=== PATIENT | male | born 1960 | race Caucasian/White ===

== ENCOUNTER 2021-05-12 09:55 | Inpatient (IN) ==
[2021-05-12] MEDS ORDERED: SODIUM CHLORIDE 0.9% 1000ML 2,000 ML IV ONE (10:13)
--- NOTE | 2021-05-12 10:19 | Emergency Department Note ---
Impression & Plan Pneumonia due to 2019 novel coronavirus, Respiratory failure, Acute hypotension ED Provider Note NAME: ANTONINA MIXON AGE: 60 SEX: M : 1960 ARRIVES VIA: Walk-In INFORMANT: Patient ED PROVIDER(S): José Hauser DO CHIEF COMPLAINT: Weak, cough, fevers HPI: Patient is a 60-year-old male who presents to the ER for weakness. His symptoms started about 10 days ago. He admits to cough and congestion. He has been having fevers off and on. He admits to a headache and feeling extremely weak. He cannot get up and move around. Denies any chest pain or belly pain. No nausea vomiting or diarrhea. No loss of taste or smell. He has not been vaccinated for COVID. He came in today as he feels significantly worse. He does feel very lightheaded. ROS: See above HPI for pertinent positives & negatives. A total of 10 systems reviewed and were otherwise negative. PAST MEDICAL HISTORY:See Below PAST SURGICAL HISTORY:See Below FAMILY HISTORY:See Below SOCIAL HISTORY:See Below HOME MEDICATIONS:See Below ALLERGIES:See Below VITALS:See Below PHYSICAL EXAMINATION: GENERAL: Sitting up in bed, alert, slightly ill-appearing, disheveled, persistent cough EYE EXAM: normal conjunctiva. PERRL and EOM's grossly intact. OROPHARYNX: no exudate, no erythema, lips, buccal mucosa, and tongue normal and mucous membranes are moist NECK: supple, no nuchal rigidity, no adenopathy, non-tender LUNGS: Clear to auscultation. Normal chest wall mechanics HEART: no murmurs, S1 normal and S2 normal ABDOMEN: abdomen soft, non-tender, normo-active bowel sounds, no masses, no rebound or guarding. UPPER EXTREMITIES: upper extremities are grossly normal. LOWER EXTREMITIES: No pitting edema. Calves equal bilateral NEURO EXAM: Normal sensorium, cranial nerves II-XII grossly intact, normal speech, no gross weakness of arms, no gross weakness of legs. MEDICAL DECISION MAKING: Patient is a 60-year-old unvaccinated male who presents to the ER for upper respiratory symptoms that started 10 days ago. IV was established blood was obtained. Initially hypotensive with systolics in the 80s. He was hypoxic at 88% on room air just sitting. He was placed on 2 L nasal cannula. Labs show no significant leukocytosis or anemia. BMP with mild hyponatremia at 133. LFTs were unremarkable. Bilirubin was normal. Calcium was slightly low at 8.3. Lipase was unremarkable. Patient is COVID-positive. He is given 2 L of normal saline. Systolics trended up to the low 120s. Chest x-ray with subtle patchy infiltrates or cephalization. CT angio of the chest was performed with hypoxia, hypotension and a positive D-dimer at 2200. CT angios showed no PEs but bilateral infiltrates. He was given Decadron and IV fluids. He remained on bridget al cannula. He was discussed with Haylie pathak admitted to the hospitalist for COVID-pneumonia with hypoxic respiratory failure on 2 L nasal cannula. Patient was updated at bedside and was agreeable with admission for further evaluation and treatment of his COVID-pneumonia Triage Nursing notes reviewed. Limited review of prior medical records performed Vital Signs: reviewed and remarkable for hypotensive and hypoxic Differential diagnosis: Differential diagnoses includes but is not limited to pneumonia, bronchitis, COPD/Asthma exacerbation, pneumothorax, pulmonary embolism, congestive heart failure, acute coronary syndrome ER treatment provided: See below Diagnostics interpreted by me: ECG: Sinus rhythm rate of 91 Normal axis No PVCs Incomplete right bundle Poor baseline QTC 437 Cardiac Monitoring: An order was placed for continuous cardiac monitoring. The monitor shows a rate of 95 with sinus rhythm. Laboratory studies: As stated above and show below. Imaging studies: Chest x-ray with cephalization and bilateral patchy infiltrates CT angio of the chest shows no PEs but bilateral infiltrates Consultation(s): Discussed with Haylie pathak for further evaluation Procedures: none Critical Care: I have personally spent 32 minutes of critical care time in the direct management of this patient. This includes bedside care, interpretation of diagnostic studies, and testing, discussion with consultants, patient, and family members, and other required patient management activities. This 32 minutes is in excess of all separately billable procedures. Past Med/Surg History Social History Smoking Status: Never smoker Feels Safe at Home: Yes Allergies Allergies Allergy/AdvReac Type Severity Reaction Status Date / Time No Known Allergies Allergy Unverified 05/12/21 10:29 Home Meds Home Medications Medication Instructions Recorded Confirmed No Known Home Medications 05/12/21 05/12/21 Results & Data (ED) Vital Signs Vital Signs - 24 hr 05/12/21 09:59 05/12/21 10:14 05/12/21 10:15 Temperature 37.4 C Temperature Source Temporal Artery Scan Pulse Rate 98 H 91 H Pulse Rate from SpO2 Sensor 91 H Respiratory Rate 24 38 H Blood Pressure 86/48 L 113/73 Blood Pressure Mean 60 86 Pulse Oximetry 90 90 89 L Oxygen Delivery Method Room Air Nasal Cannula Room Air Oxygen Flow Rate 2 Sepsis Recent Fever Within 48 Hours No Sepsis New/Unexplained Change in Mental Status N/A Sepsis Action Taken by Nursing Physician Notified Oxygen Flow Rate - Titration 2 Pulse Oximetry Post Tiitration 93 05/12/21 10:30 05/12/21 11:01 05/12/21 11:30 Temperature Temperature Source Pulse Rate 88 87 83 Pulse Rate from SpO2 Sensor 88 86 84 Respiratory Rate 26 H 27 H 36 H Blood Pressure 109/71 127/90 119/69 Blood Pressure Mean 83 102 85 Pulse Oximetry 94 93 88 L Oxygen Delivery Method Nasal Cannula Nasal Cannula Room Air Oxygen Flow Rate 2 2 Sepsis Recent Fever Within 48 Hours Sepsis New/Unexplained Change in Mental Status Sepsis Action Taken by Nursing Oxygen Flow Rate - Titration Pulse Oximetry Post Tiitration Laboratory Data Result diagrams: 05/12/21 10:25 05/12/21 11:54 Lab Results 05/12/21 05/12/21 05/12/21 Range/Units 10:25 10:25 10:25 WBC 8.36 (4.8-10.8) K/uL RBC 4.89 (4.7-6.1) M/uL Hgb 15.9 (14.0-18.0) g/dL Hct 45.1 (42-52) % MCV 92.2 (80-100) fL MCH 32.5 (25-34) pg MCHC 35.3 (32-36) g/dL RDW Std Deviation 46.6 H (36.4-46.3) fL RDW Coeff of Matilda 13.7 (11.5-14.5) % Plt Count 195 (130-400) K/uL MPV 10.6 H (7.4-10.4) fL Immature Gran % (Auto) 0.1 % Neut % (Auto) 70.7 % Lymph % (Auto) 21.7 % [place] % (Auto) 7.3 % Eos % (Auto) 0.1 % Baso % (Auto) 0.1 % Neut # (Auto) 5.91 (1.4-6.5) K/uL Lymph # (Auto) 1.81 (1.2-3.4) K/uL [place] # (Auto) 0.61 H (0.11-0.59) K/uL Eos # (Auto) 0.01 (0-0.5) K/uL Baso # (Auto) 0.01 (0-0.2) K/uL Immature Gran # (Auto) 0.01 (0.00-0.02) K/uL D-Dimer 2270 H* (0-500) ug/L FEU Sodium 133 L (136-145) mmol/L Potassium (3.5-5.1) mmol/L Chloride 101 (98-107) mmol/L Carbon Dioxide 24 (21-32) mmol/L Anion Gap 8 (3-11) BUN 21 (6-23) mg/dl Creatinine 1.11 (0.6-1.4) mg/dl Est Cr Clr Drug Dosing 86.2 ml/min Est GFR ( Amer) 82.0 ml/min Est GFR (Non-Af Amer) 70.8 ml/min BUN/Creatinine Ratio 18.9 (10-20) Glucose 120 H (70-99(Fasting)) mg/dl Calcium 8.3 L (8.5-10.1) mg/dl Total Bilirubin 0.6 (0.2-1.0) mg/dl AST (13-39) U/L ALT 19 (7-52) U/L Alkaline Phosphatase (34-104) U/L Troponin I 0.03 (0-0.04) ng/ml B-Natriuretic Peptide (0-100) pg/ml Total Protein 7.1 (6.0-8.3) gm/dl Albumin 3.5 (3.4-5.0) gm/dl Globulin 3.6 (2.5-4.0) gm/dl Albumin/Globulin Ratio 1.0 (0.9-2) Lipase 91 H (11-82) U/L SARS-CoV-2 (PCR) (Negative) Influenza Type A (PCR) (Neg) Influenza Type B (PCR) (Neg) RSV (RT-PCR) (Neg) 05/12/21 05/12/21 05/12/21 Range/Units 10:25 11:19 11:54 WBC (4.8-10.8) K/uL RBC (4.7-6.1) M/uL Hgb (14.0-18.0) g/dL Hct (42-52) % MCV (80-100) fL MCH (25-34) pg MCHC (32-36) g/dL RDW Std Deviation (36.4-46.3) fL RDW Coeff of Matilda (11.5-14.5) % Plt Count (130-400) K/uL MPV (7.4-10.4) fL Immature Gran % (Auto) % Neut % (Auto) % Lymph % (Auto) % [place] % (Auto) % Eos % (Auto) % Baso % (Auto) % Neut # (Auto) (1.4-6.5) K/uL Lymph # (Auto) (1.2-3.4) K/uL [place] # (Auto) (0.11-0.59) K/uL Eos # (Auto) (0-0.5) K/uL Baso # (Auto) (0-0.2) K/uL Immature Gran # (Auto) (0.00-0.02) K/uL D-Dimer (0-500) ug/L FEU Sodium (136-145) mmol/L Potassium 3.8 (3.5-5.1) mmol/L Chloride (98-107) mmol/L Carbon Dioxide (21-32) mmol/L Anion Gap (3-11) BUN (6-23) mg/dl Creatinine (0.6-1.4) mg/dl Est Cr Clr Drug Dosing ml/min Est GFR ( Amer) ml/min Est GFR (Non-Af Amer) ml/min BUN/Creatinine Ratio (10-20) Glucose (70-99(Fasting)) mg/dl Calcium (8.5-10.1) mg/dl Total Bilirubin (0.2-1.0) mg/dl AST 39 (13-39) U/L ALT (7-52) U/L Alkaline Phosphatase 42 (34-104) U/L Troponin I (0-0.04) ng/ml B-Natriuretic Peptide 64 (0-100) pg/ml Total Protein (6.0-8.3) gm/dl Albumin (3.4-5.0) gm/dl Globulin (2.5-4.0) gm/dl Albumin/Globulin Ratio (0.9-2) Lipase (11-82) U/L SARS-CoV-2 (PCR) POSITIVE A* (Negative) Influenza Type A (PCR) Negative (Neg) Influenza Type B (PCR) Negative (Neg) RSV (RT-PCR) Negative (Neg) Administered Medications Discontinued Medications Dexamethasone (Dexamethasone Sod Inj 4 Mg/Ml Vial) Confirm Administered Dose 8 mg .ROUTE .STK-MED ONE Stop: 05/12/21 12:20 Last Admin: 05/12/21 12:22 Dose: 6 mg Documented by: [id number] Sodium Chloride (Nss 1000ml) 2,000 mls @ 999 mls/hr IV .Q2H1M ONE Stop: 05/12/21 12:13 Last Infusion: 05/12/21 12:29 Dose: 0 mls/hr Documented by: [id number] Admin: 05/12/21 10:28 Dose: 999 mls/hr Documented by: [id number] Dexamethasone 6 mg/ Syringe 1.5 mls @ 1 mls/min IV ONE ONE Stop: 05/12/21 12:03 Last Admin: 05/12/21 12:22 Dose: Not Given Documented by: [id number] Ioversol (Optiray 320 125ml) 121 ml IV ONCE ONE Stop: 05/12/21 12:05 Last Admin: 05/12/21 12:04 Dose: 121 ml Documented by: [id number] Imaging Data Radiologist's Impression: Chest X-Ray 05/12/21 10:13 XR chest 1V portable CLINICAL HISTORY: Atypical chest pain TECHNIQUE: Single frontal radiograph of the chest was obtained. Comparison: None available at the time of this dictation. FINDINGS: Intact sternotomy wires are noted. Clips are projecting over the left upper quadrant. The cardiomediastinal silhouette is normal. There is prominence and cephalization of the vasculature with Cirilo B lines seen. No evidence of pleural effusion or pneumothorax. IMPRESSION: Moderate pulmonary edema. ACT 112: Negative or not required by law. Electronically signed by: David Khan M.D. 05/12/2021 10:57 AM Chest CTA 05/12/21 10:59 CT angio chest PE protocol CLINICAL HISTORY: Shortness of breath and cough. Positive d-dimer. Evaluate for pulmonary embolus COMPARISON STUDY: Portable chest 05/12/2021 CT DOSE: 590.71 mGycm TECHNIQUE: CT Angio of the chest was performed.followed by image post processing with coronal, and sagittal MIP reformats. Contrast Volume: Optiray 320, 121 ml FINDINGS: Vasculature: There is homogeneous perfusion of the pulmonary vasculature bilaterally. No intraluminal filling defects or evidence for pulmonary embolus is seen. Airway: The airway is clear. No endobronchial lesion is identified. Lungs: Extensive groundglass opacities are present throughout both lungs characteristic of a viral type pneumonitis and Covid 19 pneumonia. The lungs are otherwise clear of confluent alveolar opacities, air bronchograms or pulmonary nodules. There is no evidence for pulmonary edema as suspected radiographically. Pleura: There is no evidence for pleural effusion. There is no evidence for pneumothorax. Mediastinum: There is no evidence for pathologic adenopathy. The patient is status post previous cardiothoracic surgery. The heart size is within normal limits. Coronary artery calcification is present. The thoracic aorta is within normal limits. There is no evidence for pericardial effusion. Upper abdomen:The adrenal glands are normal bilaterally. There is evidence for cholelithiasis Osseous structures: There is no acute osseous pathology. Impression: 1. No CTA evidence for pulmonary embolus. 2. . Extensive groundglass opacities are present throughout both lungs characteristic of a viral type pneumonitis and early Covid 19 pneumonia. 3. This accounts for the density seen on the standard radiographs with no evidence for pulmonary edema. 4. Cholelithiasis. ACT 112: Negative or not required by law. Electronically signed by: Shamar Awan M.D. 05/12/2021 12:18 PM Discharge Plan Visit Data Chief Complaint: Shortness of Breath/Dyspnea Stated Complaint: SOB, COUGH, FEVER, PT HAS LBP NORMALLY ED Provider: José Hauser Discharge Problem: Pneumonia due to 2019 novel coronavirus, Respiratory failure, Acute hypotension Forms Stand Alone Forms: [employer] Prescriptions Prescriptions: No Action No Known Home Medications RF: 0 Referrals Referrals: PCP,NO [Primary Care Provider] - Discharge Problem: Respiratory failure Qualifiers: Chronicity: acute Respiratory failure complication: hypoxia Qualified Code(s): J96.01 - Acute respiratory failure with hypoxia
[2021-05-12 10:39] LABS: Basophils # (auto) 0.01 K/uL (0-0.2); Basophils % (auto) 0.1 %; Eosinophils # (auto) 0.01 K/uL (0-0.5); Eosinophils % (auto) 0.1 %; Hematocrit (blood only) 45.1 % (42-52); Hemoglobin 15.9 g/dL (14.0-18.0); Immature Granulocytes # (auto) 0.01 K/uL (0.00-0.02); Immature Granulocytes % (auto) 0.1 %; Lymphocytes # (auto) 1.81 K/uL (1.2-3.4); Lymphocytes % (auto) 21.7 %; Mean Corpuscular Hemoglobin 32.5 pg (25-34); Mean Corpuscular Hgb Conc 35.3 g/dL (32-36); Mean Corpuscular Volume 92.2 fL (80-100); Mean Platelet Volume 10.6 fL (7.4-10.4); Monocytes # (auto) 0.61 K/uL (0.11-0.59); Monocytes % (auto) 7.3 %; Neutrophils # (auto) 5.91 K/uL (1.4-6.5); Neutrophils % (auto) 70.7 %; Platelet Count 195 K/uL (130-400); RDW Coefficient of Variation 13.7 % (11.5-14.5); RDW Standard Deviation 46.6 fL (36.4-46.3); Red Blood Count 4.89 M/uL (4.7-6.1); White Blood Count 8.36 K/uL (4.8-10.8)
[2021-05-12 10:50] LABS: D Dimer 2270 ug/L FEU (0-500)
--- NOTE | 2021-05-12 10:58 | XRay Report ---
XR chest 1V portable CLINICAL HISTORY: Atypical chest pain TECHNIQUE: Single frontal radiograph of the chest was obtained. Comparison: None available at the time of this dictation. FINDINGS: Intact sternotomy wires are noted. Clips are projecting over the left upper quadrant. The cardiomedia stinal silhouette is normal. There is prominence and cephalization of the vasculature with Cirilo B l sabina seen. No evidence of pleural effusion or pneumothorax. IMPRESSION: Moderate pulmonary edema. ACT 112: Negative or not required by law. Electronically signed by: David Khan M.D. 05/12/2021 10:57 AM
[2021-05-12 11:08] LABS: Troponin I 0.03 ng/ml (0-0.04)
[2021-05-12 11:23] LABS: Influenza A virus by PCR Negative (Neg); Influenza B virus by PCR Negative (Neg); RSV by PCR Negative (Neg)
--- NOTE | 2021-05-12 11:29 | Electrocardiogram Report ---
Test Reason : Blood Pressure : / mmHG Vent. Rate : 091 BPM Atrial Rate : 091 BPM P-R Int : 130 ms QRS Dur : 084 ms QT Int : 356 ms P-R-T Axes : 063 015 081 degrees QTc Int : 437 ms Poor data quality, interpretation may be adversely affected Normal sinus rhythm Incomplete right bundle branch block Borderline ECG No previous ECGs available Confirmed by Flakito Gregory ([id number]) on 05/12/2021 11:29:24 AM Referred By: Confirmed By:Flakito Gregory
[2021-05-12 11:35] LABS: SARS CoV2 RNA(COVID-19) InHosp POSITIVE (Negative)
[2021-05-12 11:47] LABS: Albumin Level 3.5 gm/dl (3.4-5.0); BUN Creatinine Ratio 18.9 (10-20); Bilirubin,Total 0.6 mg/dl (0.2-1.0); Calcium 8.3 mg/dl (8.5-10.1); Creatinine Clr Calc Pharmacy 86.2 ml/min; Est GFR (Non-African American) 70.8 ml/min; Globulin 3.6 gm/dl (2.5-4.0); Total Protein 7.1 gm/dl (6.0-8.3)
[2021-05-12] MEDS ORDERED: dexAMETHasone 6 MG in SYRINGE 0 ML IV ONE (12:02)
[2021-05-12] MEDS ORDERED: OPTIRAY 320 125ml IV ONE (12:04)
[2021-05-12] MEDS ORDERED: DEXAMETHASONE SOD INJ 4 MG/ML VIAL ONE (12:19)
--- NOTE | 2021-05-12 12:20 | CT Scan Report ---
CT angio chest PE protocol CLINICAL HISTORY: Shortness of breath and cough. Positive d-dimer. Evaluate for pulmonary embolus COMPARISON STUDY: Portable chest 05/12/2021 CT DOSE: 590.71 mGycm TECHNIQUE: CT Angio of the chest was performed.followed by image post processing with coronal, and s agittal MIP reformats. Contrast Volume: Optiray 320, 121 ml FINDINGS: Vasculature: There is homogeneous perfusion of the pulmonary vasculature bilaterally. No intraluminal filling defects or evidence for pulmonary embolus is seen. Airway: The airway is clear. No endobronchial lesion is identified. Lungs: Extensive groundglass opacities are present throughout both lungs characteristic of a viral ty pe pneumonitis and Covid 19 pneumonia. The lungs are otherwise clear of confluent alveolar opacities, air bronchograms or pulmonary nodules. There is no evidence for pulmonary edema as suspected radiogr aphically. Pleura: There is no evidence for pleural effusion. There is no evidence for pneumothorax. Mediastinum: There is no evidence for pathologic adenopathy. The patient is status post previous card iothoracic surgery. The heart size is within normal limits. Coronary artery calcification is present. The thoracic aorta is within normal limits. There is no evidence for pericardial effusion. Upper abdomen:The adrenal glands are normal bilaterally. There is evidence for cholelithiasis Osseous structures: There is no acute osseous pathology. Impression: 1. No CTA evidence for pulmonary embolus. 2. . Extensive groundglass opacities are present throughout both lungs characteristic of a viral type pneumonitis and early Covid 19 pneumonia. 3. This accounts for the density seen on the standard radiographs with no evidence for pulmonary katlyn a. 4. Cholelithiasis. ACT 112: Negative or not required by law. Electronically signed by: Shamar Awan M.D. 05/12/2021 12:18 PM
[2021-05-12 12:23] LABS: Potassium 3.8 mmol/L (3.5-5.1)
--- NOTE | 2021-05-12 13:13 | History & Physical Report ---
Date of Service May 12, 2021 Assessment & Plan (1) Pneumonia due to 2019 novel coronavirus: Plan: -Admit to [facility] -Patient presenting from home with reports of cough and shortness of breath x 2 weeks. -In the ED, hypoxic on room air to 88%, currently requiring 2 L of oxygen via nasal cannula -Tested positive for COVID-19, patient is unvaccinated -CTA chest negative for pulmonary embolism however shows extensive bilateral groundglass opacities consistent with COVID-19 pneumonia -Patient is outside treatment window for remdesivir, does not meet criteria for baricitinib -Continue IV dexamethasone -IV Lasix considered however given borderline BP in ED, will hold for now -check procal and CRP -Supportive care with incentive spirometry, flutter valve, as needed albuterol, encourage self proning (2) Cough: (3) S/P CABG x 4: Plan: -Patient reports history of in 2011 in [facility] -Has not seen a physician in at least 5 years -Does not take any prescribed medications -Will arrange for PCP establishment at discharge (4) DVT prophylaxis: Plan: -SQ Lovenox History of Present Illness Chief Complaint: Cough, shortness of breath Primary Care Provider: NO PCP 60-year-old male with PMH CABG x4 in 2012 (patient denies additional past medical history and has not seen a doctor in at least 5 years, outside records unavailable) who presents to the ED for evaluation of cough and shortness of breath. Patient reports he has been feeling sick for the past 2 weeks. He reports progressive worsening cough and shortness of breath. Cough has been nonproductive. Patient feels as though he has been running a fever and has been having episodes of diaphoresis however did not check his temperature. He has had nausea and poor appetite however denies abdominal pain, vomiting, diarrhea. No chest pain or palpitations. Denies lightheadedness, dizziness, diaphoresis, syncopal events. Denies urinary symptoms. In the ED, patient was hypoxic on room air to 88%, currently requiring 2 L of oxygen via nasal cannula. Patient has has a positive for COVID-19. He is unvaccinated. CTA chest negative for pulmonary embolism however shows extensive bilateral groundglass opacities consistent with COVID-19 pneumonia. Patient was given IVF and IV dexamethasone. Allergies Allergy/AdvReac Type Severity Reaction Status Date / Time No Known Allergies Allergy Unverified 05/12/21 10:29 Home Medications Medication Instructions Recorded Confirmed Type No Known Home Medications 05/12/21 05/12/21 History Past Med/Surg History Surgical History (Updated 05/12/21 @ 13:10 by SHERRIE Ambriz) S/P CABG x 4 Family History Father Lung cancer Mother Lung cancer Social History (Updated 05/12/21 @ 13:07 by SHERRIE Ambriz) Smoking Status: Never smoker Hx Alcohol Use: No Feels Safe at Home: Yes Review of Systems Review of Systems: ROS per HPI, all other systems reviewed and negative Physical Exam Constitutional: WD/WN, vitals as above + ill appearing; no acute distress Eyes: PERRL, conjunctivae normal, anicteric sclerae ENMT: external ear and nose normal, oropharynx normal Respiratory: normal respiratory effort; no respiratory distress Auscultation: + crackles (Bibasilar) Cardiovascular: Rate/Rhythm: regular rate and regular rhythm Vessels: normal peripheral pulses Extremities: no edema Gastrointestinal (Abdomen): normal bowel sounds, soft, nontender, no hepatosplenomegaly Musculoskeletal: no cyanosis or clubbing, extremities motor strength 5/5 Skin: no rashes, warm and dry Neurologic: PERRL, EOMI, accommodation nl, no face palsy, no dysarthria Psychiatric: A+Ox3, euthymic affect Results & Data Results & Data ([facility]) Vital Signs (Past 12 Hours) Vital Signs Temp Pulse Resp BP Pulse Ox 05/12/21 11:30 83 36 H 119/69 88 L 05/12/21 11:01 87 27 H 127/90 93 05/12/21 10:30 88 26 H 109/71 94 05/12/21 10:15 89 L 05/12/21 10:14 91 H 38 H 113/73 90 05/12/21 09:59 37.4 C 98 H 24 86/48 L 90 Laboratory Results Short CBC 05/12/21 Range/Units 10:25 WBC 8.36 (4.8-10.8) K/uL Hgb 15.9 (14.0-18.0) g/dL Hct 45.1 (42-52) % Plt Count 195 (130-400) K/uL BMP 05/12/21 05/12/21 10:25 11:54 Sodium 133 L Potassium 3.8 Chloride 101 Carbon Dioxide 24 BUN 21 Creatinine 1.11 Glucose 120 H Calcium 8.3 L Cardiac Enzymes 05/12/21 Range/Units 10:25 Troponin I 0.03 (0-0.04) ng/ml Liver Function 05/12/21 05/12/21 Range/Units 10:25 11:54 Total Bilirubin 0.6 (0.2-1.0) mg/dl AST 39 (13-39) U/L ALT 19 (7-52) U/L Alkaline Phosphatase 42 (34-104) U/L Albumin 3.5 (3.4-5.0) gm/dl Diagnostic Findings Chest X-Ray 05/12/21 10:13 XR chest 1V portable CLINICAL HISTORY: Atypical chest pain TECHNIQUE: Single frontal radiograph of the chest was obtained. Comparison: None available at the time of this dictation. FINDINGS: Intact sternotomy wires are noted. Clips are projecting over the left upper quadrant. The cardiomediastinal silhouette is normal. There is prominence and cephalization of the vasculature with Cirilo B lines seen. No evidence of pleural effusion or pneumothorax. IMPRESSION: Moderate pulmonary edema. ACT 112: Negative or not required by law. Electronically signed by: David Khan M.D. 05/12/2021 10:57 AM Chest CTA 05/12/21 10:59 CT angio chest PE protocol CLINICAL HISTORY: Shortness of breath and cough. Positive d-dimer. Evaluate for pulmonary embolus COMPARISON STUDY: Portable chest 05/12/2021 CT DOSE: 590.71 mGycm TECHNIQUE: CT Angio of the chest was performed.followed by image post processing with coronal, and sagittal MIP reformats. Contrast Volume: Optiray 320, 121 ml FINDINGS: Vasculature: There is homogeneous perfusion of the pulmonary vasculature bilaterally. No intraluminal filling defects or evidence for pulmonary embolus is seen. Airway: The airway is clear. No endobronchial lesion is identified. Lungs: Extensive groundglass opacities are present throughout both lungs characteristic of a viral type pneumonitis and Covid 19 pneumonia. The lungs are otherwise clear of confluent alveolar opacities, air bronchograms or pulmonary nodules. There is no evidence for pulmonary edema as suspected radiographically. Pleura: There is no evidence for pleural effusion. There is no evidence for pneumothorax. Mediastinum: There is no evidence for pathologic adenopathy. The patient is status post previous cardiothoracic surgery. The heart size is within normal limits. Coronary artery calcification is present. The thoracic aorta is within normal limits. There is no evidence for pericardial effusion. Upper abdomen:The adrenal glands are normal bilaterally. There is evidence for cholelithiasis Osseous structures: There is no acute osseous pathology. Impression: 1. No CTA evidence for pulmonary embolus. 2. . Extensive groundglass opacities are present throughout both lungs characteristic of a viral type pneumonitis and early Covid 19 pneumonia. 3. This accounts for the density seen on the standard radiographs with no evidence for pulmonary edema. 4. Cholelithiasis. ACT 112: Negative or not required by law. Electronically signed by: Shamar Awan M.D. 05/12/2021 12:18 PM Code Status & VTE Plan Code Status Patient is a DNR as per my discussion with him. VTE Prophylaxis Plan VTE Prophylaxis will be ordered: Yes Supervising Physician Co-Signing Physician Notes I have seen and examined the patient and have discussed the case with the provider above. I agree with the assessment and plan as stated. 60 yo M with worsening SOB, requiring 2LPM oxygen supplementation for hypoxia on arrival to ER. He is bothered mostly by the cough and dyspnea on exertion, reporting an ex ercise intolerance in recent days. No swelling or edema present. Lungs are diminished at bases but clear to auscultation. Denies GI side effects. He has been sick now for the past two weeks and just thought it would "blow over. He is unvaccinated. He has a h/o CABG and takes a baby aspirin daily but stopped taking all his medications 5 years ago per his report. CV exam reveals S1/2 heard without m/g/r, no peripheral edema. WNWD, abdomen is soft, NTND. No gross focal neurologic deficits. Agree with plan above to continue steroids daily, trend CRP and BNP, out of window for remdesivir. Cont supportive care efforts. Updated by phone. DO Tal
[2021-05-12 15:12] LABS: Appearance Urine Clear (Clear); Bacteria Urine Automated Negative (Negative); Bilirubin Urine Negative (Negative); Blood Urine Negative (Negative); Cast Urine Automated 0 /lpf (0-5); Color Urine Yellow; Glucose Urine UA Negative (Negative); Ketones Urine 1+ (Negative); Leukocyte Esterase Urine Negative (Negative); Nitrite Urine Negative (Negative); Protein Urine 1+ (Negative); RBC Urine Automated 0-4 /hpf (0-4); Urobilinogen Urine Negative (Negative)
[2021-05-12 15:24] LABS: Specific Gravity Urine > 1.060 (1.000-1.030)
[2021-05-12] MEDS ORDERED: guaiFENesin/CODEINE 100MG/10MG 5ML UDC PO STA (16:46)
[2021-05-12] MEDS ORDERED: ONDANSETRON INJ 2 MG/ML 2 ML VIAL IV PRN (17:40)
[2021-05-12] MEDS ORDERED: ALBUTEROL HFA 8 GM INHALER INH PRN (17:40)
[2021-05-12] MEDS: BENZONATATE 100 MG CAPSULE PO SCH (20:48)
[2021-05-12] MEDS: ENOXAPARIN INJ 40 MG/0.4 ML SYR SQ SCH (20:48)
[2021-05-13 07:33] LABS: Hemoglobin 14.3 g/dL (14.0-18.0); Mean Corpuscular Hemoglobin 31.6 pg (25-34); Mean Corpuscular Volume 92.9 fL (80-100); Platelet Count 235 K/uL (130-400); RDW Coefficient of Variation 13.9 % (11.5-14.5); RDW Standard Deviation 47.9 fL (36.4-46.3); Red Blood Count 4.52 M/uL (4.7-6.1); White Blood Count 7.38 K/uL (4.8-10.8)
[2021-05-13 07:55] LABS: BUN Creatinine Ratio 22.5 (10-20); C Reactive Protein 3.31 mg/dl (0-0.5); Calcium 7.7 mg/dl (8.5-10.1); Creatinine Clr Calc Pharmacy 93.8 ml/min; Est GFR (African American) 90.9 ml/min; Est GFR (Non-African American) 78.4 ml/min; Potassium 3.7 mmol/L (3.5-5.1)
[2021-05-13] MEDS: dexAMETHasone 6 MG in SYRINGE 0 ML IV SCH (08:46)
[2021-05-13] MEDS: BENZONATATE 100 MG CAPSULE PO SCH ×2 (09:51→13:15)
[2021-05-13] MEDS ORDERED: guaiFENesin/CODEINE 100MG/10MG 5ML UDC PO STA (14:43)
--- NOTE | 2021-05-13 14:55 | Hospitalist Progress Note ---
Date of Service May 13, 2021 Assessment & Plan (1) Acute respiratory failure with hypoxia: (2) Pneumonia due to 2019 novel coronavirus: Plan: Presented from home with reports of cough and shortness of breath x 2 weeks. In the ED, hypoxic on room air to 88%, currently requiring 2 L of oxygen via nasal cannula Unvaccinated against covid-19 CTA chest negative for pulmonary embolism however shows extensive bilateral ground glass opacities consistent with COVID-19 pneumonia Patient is outside treatment window for remdesivir, does not meet criteria for baricitinib Escalating oxygen needs overnight Supportive care with incentive spirometry, flutter valve, as needed albuterol, encourage self proning Lasix 20mg IV x one now Patient declines carey catheter-strict I/Os. Please use bedside commode to avoid desaturation episodes with exertion. (3) Cough: Plan: Benzonatate not working. Robitussin PRN (4) S/P CABG x 4: Plan: chronic CAD, appears stable. No chest pain. Cont baby aspirin per home regimen. Note patient purposely stopped all medications about 5 years ago. Outpatient cardiology or PCP follow-up recommended. (5) DVT prophylaxis: Plan: -SQ Lovenox Full Code Dispo-transfer to PCU wtih worsening hypoxia. I tried by phone to update but was unable to connect with her despite multiple attempts. The paper gluing operator also tried her and we were unsuccessful. Mago Parada DO [facility] Hospitalist Admission and Anticipated Discharge Date Admission Date: May 12, 2021 Subjective 60 yo M presents with worsening SOB, hypoxia and cough 2/2 covid pneumonia. reports benzonatate not helping still coughing--didn't know he had to ask for cough syrup still SOB, doesn't know if meds are helping tolerating PO but low appetite no fever no GI symptoms Review of Systems Review of Systems: All systems were reviewed and negative except as indicated in subjective above. Physical Exam Physical Exam: CONSTITUTIONAL: WNWD, vitals as above,NAD EYES: normal conjunctivae, no scleral icterus ENT: external ear and nose normal, MMM NECK: trachea midline, RESPIRATORY: clear to auscultation bilaterally, no crackles, rales or wheezes, normal respiratory effort but has some resting tachypnea, coughs with any deep breath effort. CARDIOVASCULAR: regular rate and rhythm, S1 and 2 heard without murmurs, gallops or rubs, no JVD, no peripheral edema CHEST: inspection of chest was normal GASTROINTESTINAL: soft, nontender, ND, no guarding MUSCULOSKELETAL: strength 5/5 throughout, head is normocephalic and atraumatic SKIN: warm and dry NEUROLOGIC: CN 2-12 grossly intact, no sensory deficit, normal cognition, normal speech, no tremor, no gross focal deficits. PSYCHIATRIC: alert cooperative and oriented to person, place and time. Results & Data Results & Data ([facility]) Vital Signs (Past 12 Hours) Vital Signs Temp Pulse Resp BP Pulse Ox 05/13/21 07:37 37.1 C 75 16 131/86 92 Laboratory Results Short CBC 05/13/21 Range/Units 06:49 WBC 7.38 (4.8-10.8) K/uL Hgb 14.3 (14.0-18.0) g/dL Hct 42.0 (42-52) % Plt Count 235 (130-400) K/uL BMP 05/13/21 06:49 Sodium 135 L Potassium 3.7 Chloride 105 Carbon Dioxide 23 BUN 23 Creatinine 1.02 Glucose 119 H Calcium 7.7 L Urine 05/12/21 Range/Units 14:45 Urine Color Yellow Urine Appearance Clear (Clear) Urine pH 5.0 (4.5-7.5) Ur Specific [place] > 1.060 H (1.000-1.030) Urine Protein 1+ H (Negative) Urine Glucose (UA) Negative (Negative) Medications Administered Current Inpatient Medications Acetaminophen (Acetaminophen 325 Mg Tab) 650 mg PO Q4H PRN PRN Reason: pain/fever Stop: 06/11/21 17:39 Albuterol (Albuterol Hfa 8 Gm Inhaler) 2 puffs INH Q4H PRN PRN Reason: shortness of breath Stop: 06/11/21 17:39 Enoxaparin Sodium (Enoxaparin Inj 40 Mg/0.4 Ml Syr) 40 mg SQ Q24H [facility] Stop: 06/11/21 20:59 Last Admin: 05/12/21 20:48 Dose: 40 mg Documented by: Furosemide (Furosemide Inj 20 Mg/2 Ml Vial) 20 mg IV 1500 ONE Stop: 05/13/21 15:01 Guaifenesin/Codeine Phosphate (Guaifenesin/Codeine 200mg/20mg 10ml Udc) 10 ml PO Q6H PRN PRN Reason: Cough Stop: 06/11/21 16:45 Dexamethasone 6 mg/ Syringe 1.5 mls @ 1 mls/min IV DAILY ROSEY Stop: 05/23/21 08:59 Last Admin: 05/13/21 08:46 Dose: 1 mls/min Documented by: Ondansetron HCl (Ondansetron Inj 2 Mg/Ml 2 Ml Vial) 4 mg IV Q6H PRN PRN Reason: Nausea Stop: 06/11/21 17:39
[2021-05-13] MEDS ORDERED: FUROSEMIDE INJ 20 MG/2 ML VIAL IV ONE (15:00)
[2021-05-13] MEDS: ENOXAPARIN INJ 40 MG/0.4 ML SYR SQ SCH (20:05)
[2021-05-14 07:57] LABS: Hematocrit (blood only) 44.8 % (42-52); Hemoglobin 15.2 g/dL (14.0-18.0); Mean Corpuscular Hemoglobin 31.6 pg (25-34); Mean Corpuscular Hgb Conc 33.9 g/dL (32-36); Mean Corpuscular Volume 93.1 fL (80-100); Mean Platelet Volume 10.9 fL (7.4-10.4); Platelet Count 320 K/uL (130-400); RDW Standard Deviation 47.9 fL (36.4-46.3); Red Blood Count 4.81 M/uL (4.7-6.1); White Blood Count 12.63 K/uL (4.8-10.8)
[2021-05-14 08:21] LABS: BUN Creatinine Ratio 25.8 (10-20); C Reactive Protein 2.47 mg/dl (0-0.5); Creatinine Clr Calc Pharmacy 98.6 ml/min; Est GFR (African American) 96.6 ml/min; Est GFR (Non-African American) 83.3 ml/min; Potassium 4.1 mmol/L (3.5-5.1)
--- NOTE | 2021-05-14 09:24 | XRay Report ---
XR chest 1V portable HISTORY: Covid pneumonia, worsening hypoxia. COMPARISON: Chest CTA 05/12/2021. FINDINGS: Interval progression of the multifocal bilateral airspace opacities likely representing a w orsening viral pneumonia. No pneumothorax. No pleural effusions. The heart remains mildly enlarged. T here are poststernotomy changes. IMPRESSION: Interval progression of the multifocal bilateral airspace opacities likely representing a worsening v iral pneumonia. ACT 112: Negative or not required by law. Electronically signed by: Kishore Mathur M.D. 05/14/2021 9:23 AM
[2021-05-14] MEDS: dexAMETHasone 6 MG in SYRINGE 0 ML IV SCH (09:42)
--- NOTE | 2021-05-14 12:07 | Pulmonary Consultation ---
Date of Consultation May 14, 2021 Assessment & Plan (1) Pneumonia due to 2019 novel coronavirus: (2) Acute respiratory failure with hypoxia: (3) S/P CABG x 4: (4) DVT prophylaxis: Attending: Dr. Fu Impression: 60-year-old male that presented with symptoms approximately 2 weeks ago. He had progressive shortness of breath and cough and presented to the emergency department yesterday and was admitted with a positive COVID PCR. He is negative for influenza a and B as well as RSV. CRP is 2.47. Not a candidate for baricitinib or tocilizumab. He is on dexamethasone 6 mg IV. He is currently requiring 15 L of supplemental oxygen via Oxymask. ABG is pending. History of CAD with four-vessel CABG in 2011. No home medications. proBNP is only 202. Recommendations: 1. COVID-19: * Patient appears to be developing acute respiratory distress syndrome based on presentation as well as images. * CTA of chest negative for pulmonary emboli * Will check an ABG as well as ferritin level * Trend CRP * Will order high flow supplemental oxygen at this time * If no improvement, did discuss CODE STATUS with patient and he wishes to be intubated if needed * Current CODE STATUS in the system is DNR/DNI. Would discuss and confirm with his Jackie. 2. CAD: * Chest x-ray and CT reveal wire ties across his sternum * Will consider protective medication such as low-dose beta-fang and a statin * Patient reported to not be on any home medications. Would also confirm this with Jackie 3. DVT prophylaxis: * Patient is not on any outpatient anticoagulation or antiplatelet agents * Would continue to anticoagulate with enoxaparin per COVID guidelines I spoke to the patient's Jackie Paredes for 20 minutes and 30 seconds and updated her on Jakob condition. At this time she is of the opinion that he would want to be a full resuscitation including cardiac compressions as well as endotracheal intubation with mechanical ventilation. When I spoke to Mr. Paredes in his room he said that we should do what ever we could do to help him. I discussed possibility of surgical tracheostomy as well as long-term ventilatory dependency. Mrs. Paredes stated that she understood and had no further questions. She was given the phone number for the nurses station on 2 [address]. and encouraged to call for updates. I will change CODE STATUS to be full resuscitation. Thank you for including us in the care of this patient. Please refer to Dr. Fu's addendum for further recommendations. History of Present Illness Reason for Consultation: COVID-19/ARDs Requesting Physician: Dr. Sheikh Attending Physician: Artemio Sheikh DO History of Present Illness Attending: Dr. Fu Is a 60-year-old male admitted yesterday for shortness of breath and cough. He was found to be positive for COVID-19. He was placed on isolation in the COVID unit. He was seen in room 219. Patient is unvaccinated. He reports symptoms presented approximately 2 weeks ago. He had progressive worsening cough and shortness of breath and presented to the ER where he is found to be hypoxic at 88% on room air. He was placed on supplemental oxygen 2 L/min via nasal cannula. He has progressed to the point where he now requires 15 L per Oxymask. ABG is not yet been obtained. This is ordered and pending. CRP was 2.47. Procalcitonin was negative is 0.11. Serology was also negative for influenza A and B as well as RSV. Patient is a lifelong non-smoker. He does have history of CAD and had a four- vessel CABG in [facility] in 2011. He has not seen a physician in at least 5 years. Patient is on Aspirin only at home. said that he was on a "vein strengthener" 11 years ago buy Rx and never refilled. No PCP since moving here 5 years ago. proBNP is 202. No record of a TSH. Served in the [employer] 4 years and smoked one of those years then quit. Was stationed in [place]. 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 Per discussion with , he would want to be a full code. Currently patient denies fever or chills. He has not had any diarrhea. He denies any nausea or vomiting. Examination reveals Rales. Aside from fatigue and shortness of breath, patient has no acute complaints. He does feel ill. Allergies Allergy/AdvReac Type Severity Reaction Status Date / Time No Known Allergies Allergy Unverified 05/12/21 10:29 Home Medications Medication Instructions Recorded Confirmed Type No Known Home Medications 05/12/21 05/12/21 History Patient History Surgical History S/P CABG x 4 Family History Father Lung cancer Mother Lung cancer Social History Smoking Status: Never smoker Second Hand Exposure: No; Do You Dip or Chew Tobacco: No; Tobacco Cessation Education Requested by Patient: No Hx Alcohol Use: No Hx Substance Use: No Preferred Language: French [employer] Sales Representative Required: No Beliefs That Will Affect Care: None marital status: Current Living Situation: Spouse Other Information That Helps Us Care for You: No Feels Safe at Home: Yes Safety Concerns: Feels Safe At This Time Assistive Devices: Oxygen - Continuous Review of Systems Review of Systems: All systems reviewed & are unremarkable except as noted in Subjective Physical Exam Physical Exam: GENERAL : Appears ill EYES: No icterus, gaze conjugate NOSE: No evidence of epistaxis. Oxymask in place MOUTH: No lesions or candidiasis. Oxymask in place NECK: Supple LUNGS: Bibasilar rales. Patient also has decreased breath sounds on bilateral bases. No bronchospasm or rhonchi appreciated. HEART: Regular, rate is tachycardic around 100 bpm at the time of my examination. ABDOMEN: Soft, NT, ND, BS Present EXTREMITIES: No LE edema, pedal pulses intact NEURO: A&OX3 Results & Data Results & Data ([facility]) Vital Signs (Past 12 Hours) Vital Signs Temp Pulse Pulse Resp BP Pulse Ox 05/14/21 11:32 37.4 C 92 H 25 H 133/81 89 L 05/14/21 10:51 95 H 28 H 91 05/14/21 08:00 85 05/14/21 07:49 37.6 C H 84 26 H 120/80 88 L 05/14/21 04:48 22 93 05/14/21 03:31 37.4 C 26 H 150/89 H 91 Laboratory Results 05/14/21 07:17 05/14/21 07:17 COVID-19 Results 05/12/21 10:25 SARS-CoV-2 (PCR) POSITIVE A* * Arterial blood gases are pending Diagnostic Findings Chest X-Ray 05/14/21 07:00 XR chest 1V portable HISTORY: Covid pneumonia, worsening hypoxia. COMPARISON: Chest CTA 05/12/2021. FINDINGS: Interval progression of the multifocal bilateral airspace opacities likely representing a worsening viral pneumonia. No pneumothorax. No pleural effusions. The heart remains mildly enlarged. There are poststernotomy changes. IMPRESSION: Interval progression of the multifocal bilateral airspace opacities likely representing a worsening viral pneumonia. ACT 112: Negative or not required by law. Electronically signed by: Kishore Mathur M.D. 05/14/2021 9:23 AM PG Care Time/CCT Total # of Minutes Spent Total Time Spent with Patient: Total time spent is greater than 50% in coordination of care (as documented) at patient's floor/unit and/or counseling patient: 80 minutes including discussion with patient's Jackie Coding Level of Care Code 85470 Inpt Consult Level 5 Diagnoses Pneumonia due to 2019 novel coronavirus U07.1; J12.82 Acute respiratory failure with hypoxia J96.01 S/P CABG x 4 Z95.1 DVT prophylaxis Z29.9 Time Spent (min) 80
[2021-05-14] MEDS: MoRPHine SULFATE 2 MG/ML CARP IV PRN ×2 (12:16→19:25)
[2021-05-14 12:39] LABS: Allen Test Pos (Pos); Base Excess ABG 0.3 mEq/L (-9-1.8); HCO3 ABG 22 mmol/L (19-24); Oxygen Saturation ABG 90.1 % (90-95); PCO2 ABG 29 mmHg (35-46); PO2 ABG 52 mmHg (80-95)
[2021-05-14] MEDS: ASPIRIN 81 MG ECTAB PO SCH (14:43)
--- NOTE | 2021-05-14 16:26 | Hospitalist Progress Note ---
Date of Service May 14, 2021 Assessment & Plan (1) Acute respiratory failure with hypoxia: (2) Pneumonia due to 2019 novel coronavirus: Plan: Presented from home with reports of cough and shortness of breath x 2 weeks. In the ED, hypoxic on room air to 88%, currently requiring HFNC Unvaccinated against covid-19 CTA chest negative for pulmonary embolism however shows extensive bilateral ground glass opacities consistent with COVID-19 pneumonia Patient is outside treatment window for remdesivir, does not meet criteria for baricitinib Escalating oxygen needs overnight Supportive care with incentive spirometry, flutter valve, as needed albuterol, encourage self proning Patient declines carey catheter-strict I/Os. Please use bedside commode to avoid desaturation episodes with exertion. Pulm on case (3) Cough: Plan: Robitussin PRN (4) S/P CABG x 4: Plan: chronic CAD, appears stable. No chest pain. Cont baby aspirin per home regimen. Note patient purposely stopped all medications about 5 years ago. Outpatient cardiology or PCP follow-up recommended. (5) DVT prophylaxis: Plan: -SQ Lovenox Full Code Dispo-PCU wtih worsening hypoxia. ROS-No Headache, No Visual Changes, No Nausea, No Vomiting, No Fever, No Chills, No Neck Pain or Stiffness, No Chest Pain, No Palpitations, +SOB, +STEARNS, +Cough, No Sputum, No Wheezing, No Abdominal Pain, No Diarrhea, No Hematemesis, No Hemoptysis, No Unexpected Weight Loss, No Flank pain, No Melena, No Hematochezia, No Frequency, No Urgency, No Burning, No Hematuria, No Rashes, No Diaphoresis. Appetite is low, Says he can't breathe Physical Exam Gen-AAO x 3, Mod Resp Distress, Afebrile, Obese, Sitting up in bed Head-NCAT, EOMI, PERRLA, Anicteric Sclera, No Posterior Pharyngeal Erythema Neck-Supple, No JVD, No Thyromegaly, No Masses, No LAD, No Bruits Lungs-Clear to Auscultation Bilaterally, No Rales, No Rhonchi, No Wheezing, No Crepitus Chest-No S4, +S1, +S2, No S3, No Murmurs, No Rubs, No Gallops, No Ectopy Abdomen-Soft, Bowel Sounds Present, Non Tender, Non Distended, No Hepatomegaly, No Splenomegaly, No Palpable Masses, No Rebound, No Rigidity, No Guarding Musculoskeletal-Full Range of Motion Bilaterally, No CVAT Extremities-No Cyanosis, No Clubbing, No Edema Nuero-Cranial Nerves II-XII grossly intact, Motor WNL, DTRs WNL, Strength WNL, Non Focal Psych-Normal Mood Admission and Anticipated Discharge Date Admission Date: May 12, 2021 Subjective 60 yo M presents with worsening SOB, hypoxia and cough 2/2 covid pneumonia. still coughing--Can't breathe tolerating PO but low appetite no fever no GI symptoms Results & Data Results & Data ([facility]) Vital Signs (Past 12 Hours) Vital Signs Temp Pulse Pulse Resp BP Pulse Ox 05/14/21 15:28 37 C 90 23 145/91 H 85 L 05/14/21 11:32 37.4 C 92 H 25 H 133/81 89 L 05/14/21 10:51 95 H 28 H 91 05/14/21 08:00 85 05/14/21 07:49 37.6 C H 84 26 H 120/80 88 L 05/14/21 04:48 22 93 Laboratory Results Reviewed
[2021-05-14] MEDS: ENOXAPARIN INJ 40 MG/0.4 ML SYR SQ SCH (20:48)
[2021-05-15] MEDS ORDERED: LORazepam 0.25 MG/0.5 ML VIAL IV STA ×2 (02:22→23:21)
[2021-05-15] MEDS ORDERED: LORazepam 2 MG/4 ML VIAL ONE ×2 (02:28→23:30)
[2021-05-15] MEDS: MoRPHine SULFATE 2 MG/ML CARP IV PRN ×2 (03:04→21:33)
[2021-05-15 08:02] LABS: Hematocrit (blood only) 45.4 % (42-52); Hemoglobin 15.6 g/dL (14.0-18.0); Mean Corpuscular Hgb Conc 34.4 g/dL (32-36); Mean Platelet Volume 10.6 fL (7.4-10.4); Platelet Count 365 K/uL (130-400); RDW Standard Deviation 47.6 fL (36.4-46.3); Red Blood Count 4.88 M/uL (4.7-6.1); White Blood Count 13.52 K/uL (4.8-10.8)
--- NOTE | 2021-05-15 08:28 | XRay Report ---
XR chest 1V portable HISTORY: Shortness of breath. COVID/ARDs COMPARISON: Chest 05/14/2021. FINDINGS: No pneumothorax or no pleural effusions. The heart is mildly enlarged. There are poststerno michelle changes. Patchy bilateral airspace opacities have slightly improved. This is consistent with a m ultifocal pneumonia. IMPRESSION: Slight improvement in the multifocal bilateral airspace opacities likely representing a viral pneumon ia. ACT 112: Negative or not required by law. Electronically signed by: Kishore Mathur M.D. 05/15/2021 8:27 AM
[2021-05-15 09:10] LABS: Alanine Aminotransferase 32 U/L (7-52); Albumin Globulin Ratio 0.9 (0.9-2); Albumin Level 3.3 gm/dl (3.4-5.0); BUN Creatinine Ratio 29.2 (10-20); Bilirubin,Total 0.7 mg/dl (0.2-1.0); Blood Urea Nitrogen 26 mg/dl (6-23); C Reactive Protein 4.12 mg/dl (0-0.5); Carbon Dioxide 25 mmol/L (21-32); Chloride 103 mmol/L (98-107); Creatinine Clr Calc Pharmacy 106.5 ml/min; Est GFR (African American) 106.2 ml/min; Est GFR (Non-African American) 91.6 ml/min; Globulin 3.6 gm/dl (2.5-4.0); Glucose 114 mg/dl (70-99(Fasting)); Total Protein 6.9 gm/dl (6.0-8.3)
[2021-05-15] MEDS: dexAMETHasone 6 MG in SYRINGE 0 ML IV SCH (09:33)
[2021-05-15] MEDS: ASPIRIN 81 MG ECTAB PO SCH (09:33)
--- NOTE | 2021-05-15 10:59 | Hospitalist Progress Note ---
Date of Service May 15, 2021 Assessment & Plan (1) Acute respiratory failure with hypoxia: (2) Pneumonia due to 2019 novel coronavirus: Plan: Presented from home with reports of cough and shortness of breath x 2 weeks. In the ED, hypoxic on room air to 88%, currently requiring HFNC Unvaccinated against covid-19 CTA chest negative for pulmonary embolism however shows extensive bilateral ground glass opacities consistent with COVID-19 pneumonia Patient is outside treatment window for remdesivir, does not meet criteria for baricitinib Supportive care with incentive spirometry, flutter valve, as needed albuterol, encourage self proning Patient declines carey catheter-strict I/Os. Pulm on case (3) Cough: Plan: Robitussin PRN (4) S/P CABG x 4: Plan: chronic CAD, appears stable. No chest pain. Cont baby aspirin per home regimen. Note patient purposely stopped all medications about 5 years ago. Outpatient cardiology or PCP follow-up recommended. (5) DVT prophylaxis: Plan: -SQ Lovenox Full Code Dispo-PCU wtih worsening hypoxia. ROS-No Headache, No Visual Changes, No Nausea, No Vomiting, No Fever, No Chills, No Neck Pain or Stiffness, No Chest Pain, No Palpitations, +SOB, +STEARNS, +Cough, No Sputum, No Wheezing, No Abdominal Pain, No Diarrhea, No Hematemesis, No Hemoptysis, No Unexpected Weight Loss, No Flank pain, No Melena, No Hematochezia, No Frequency, No Urgency, No Burning, No Hematuria, No Rashes, No Diaphoresis. Appetite is low, Says he can't breathe Physical Exam Gen-AAO x 3, Mod Resp Distress, Afebrile, Obese, Sitting up in bed Head-NCAT, EOMI, PERRLA, Anicteric Sclera, No Posterior Pharyngeal Erythema Neck-Supple, No JVD, No Thyromegaly, No Masses, No LAD, No Bruits Lungs-Clear to Auscultation Bilaterally, No Rales, No Rhonchi, No Wheezing, No Crepitus Chest-No S4, +S1, +S2, No S3, No Murmurs, No Rubs, No Gallops, No Ectopy Abdomen-Soft, Bowel Sounds Present, Non Tender, Non Distended, No Hepatomegaly, No Splenomegaly, No Palpable Masses, No Rebound, No Rigidity, No Guarding Musculoskeletal-Full Range of Motion Bilaterally, No CVAT Extremities-No Cyanosis, No Clubbing, No Edema Nuero-Cranial Nerves II-XII grossly intact, Motor WNL, DTRs WNL, Strength WNL, Non Focal Psych-Normal Mood Admission and Anticipated Discharge Date Admission Date: May 12, 2021 Subjective 60 yo M presents with worsening SOB, hypoxia and cough 2/2 covid pneumonia. still coughing--Can't breathe Now on 100% 60L HFNC tolerating PO but low appetite no fever no GI symptoms Results & Data Results & Data ([facility]) Vital Signs (Past 12 Hours) Vital Signs Temp Pulse Pulse Resp BP Pulse Ox 05/15/21 10:53 95 H 20 93 05/15/21 08:50 88 20 91 05/15/21 07:58 96 H 05/15/21 07:32 36.9 C 98 H 24 146/95 H 86 L 05/15/21 06:36 94 05/15/21 05:14 24 93 05/15/21 03:23 26 H 91 05/15/21 03:11 36.8 C 93 H 26 H 139/93 91 05/15/21 03:05 101 H 35 H 90 05/15/21 02:32 32 H 85 L 05/15/21 02:22 32 H 85 L 05/14/21 23:43 24 91 05/14/21 23:19 37.1 C 96 H 40 H 147/81 H 90 Laboratory Results reviewed
--- NOTE | 2021-05-15 11:15 | Pulmonology Progress Note ---
Date of Service May 15, 2021 Assessment & Plan (1) Pneumonia due to 2019 novel coronavirus: (2) Acute respiratory failure with hypoxia: (3) S/P CABG x 4: (4) DVT prophylaxis: Plan: Attending: Dr. Fu Impression: 60-year-old male that presented with symptoms approximately 2 weeks ago. He had progressive shortness of breath and cough and presented to the emergency department yesterday and was admitted with a positive COVID PCR. He is negative for influenza a and B as well as RSV. CRP is 2.47. Not a candidate for baricitinib or tocilizumab. He is on dexamethasone 6 mg IV. He is currently requiring 15 L of supplemental oxygen via Oxymask. ABG is pending. History of CAD with four-vessel CABG in 2011. No home medications. proBNP is only 202. Recommendations: 1. COVID-19: * Chest x-ray today with slight improvement in bilateral airspace opacities. This is consistent with viral pneumonia. * CTA of chest negative for pulmonary emboli * No hypercapnia on ABG. * CRP increased from 2.47-4.12 today. We will continue to trend. * Discussed status with patient as well as with Jackie. At this point, they continue to be hopeful that he will not require mechanical ventilation. Should he begin to show signs of respiratory distress because of rapid respirations and a high flow supplemental oxygen, they are open to mechanical ventilation understanding that this will most likely lead to surgical tracheostomy versus withdrawal of care. 2. CAD: * Chest x-ray and CT reveal wire ties across his sternum * Troponin on admission was negative * Consider protective medication such as low-dose beta-fang and a statin * Patient started on aspirin 81 mg on 05/14/2021 as this was reported to be a home medication of the patient by his Jackie 3. DVT prophylaxis: * Patient is not on any outpatient anticoagulation or antiplatelet agents * Would continue to anticoagulate with enoxaparin per COVID guidelines I spoke to the patient's Jackie Paredes again today regarding Jakob condition. They do agree that should the patient's condition deteriorate that he should be mechanically ventilated but would prefer that this be the last option. I did discuss that we do not want the patient to deteriorate to the point where it is a respiratory emergency to perform endotracheal intubation. If he continues to have tachypnea and begins to demonstrate use of accessory muscles, we will plan on mechanical ventilation for support. Thank you for including us in the care of this patient. Please refer to Dr. Fu's addendum for further recommendations. Admission and Anticipated Discharge Date Admission Date: May 12, 2021 Subjective Attending: Dr. Fu Patient seen and examined in room 219. He is more alert today. He is however requiring high flow supplemental oxygen at 60 L/min and 100% FiO2. Saturations are currently 88%. Respiratory rate at the time of my examination were approximately 32 breaths/min. Otherwise, he is reportedly in the 20s most of the time. He denies any fever or chills. He has no chest pain or tightness. He has no lower extremity pain. He has not been pronating voluntarily on high flow. This was discussed with him at bedside. The patient has no other acute complaints at this time. Review of Systems Review of Systems: All systems reviewed & are unremarkable except as noted in Subjective Physical Exam Physical Exam: GENERAL : No acute distress EYES: No icterus, gaze conjugate NOSE: No evidence of epistaxis MOUTH: No lesions or candidiasis NECK: Supple LUNGS: Diffuse crackles. No appreciation of bronchospasm. HEART: Regular, rate is in the 90s ABDOMEN: Soft, NT, ND, BS Present EXTREMITIES: No LE edema, pedal pulses intact NEURO: A&OX3 but somewhat lethargic. He does follow commands. He does answer questions appropriately. Results & Data Results & Data ([facility]) Vital Signs (Past 12 Hours) Vital Signs Temp Pulse Pulse Resp BP Pulse Ox 05/15/21 08:50 88 20 91 05/15/21 07:58 96 H 05/15/21 07:32 36.9 C 98 H 24 146/95 H 86 L 05/15/21 06:36 94 05/15/21 05:14 24 93 05/15/21 03:23 26 H 91 05/15/21 03:11 36.8 C 93 H 26 H 139/93 91 05/15/21 03:05 101 H 35 H 90 05/15/21 02:32 32 H 85 L 05/15/21 02:22 32 H 85 L 05/14/21 23:43 24 91 05/14/21 23:19 37.1 C 96 H 40 H 147/81 H 90 Laboratory Results 05/15/21 07:37 05/15/21 10:07 COVID-19 Results 05/12/21 10:25 SARS-CoV-2 (PCR) POSITIVE A* Diagnostic Findings COVID-19 Results 05/12/21 10:25 SARS-CoV-2 (PCR) POSITIVE A* PG Care Time/CCT Total # of Minutes Spent Total Time Spent with Patient: Total time spent is greater than 50% in coordination of care (as documented) at patient's floor/unit and/or counseling patient:30 minutes including discussion with patient's Vielka with an update Coding Level of Care Code 71258 Subseq Hosp Care Lvl 2 Diagnoses Pneumonia due to 2019 novel coronavirus U07.1; J12.82 Acute respiratory failure with hypoxia J96.01 S/P CABG x 4 Z95.1 DVT prophylaxis Z29.9 Time Spent (min) 30
[2021-05-15] MEDS: ENOXAPARIN INJ 40 MG/0.4 ML SYR SQ SCH (20:01)
[2021-05-16] MEDS: MoRPHine SULFATE 2 MG/ML CARP IV PRN ×2 (01:07→12:16)
[2021-05-16 04:30] LABS: iSTAT Allen Test Pass; iSTAT Arterial Blood Gas HCO3 26 meg/L (19-24); iSTAT Arterial Blood Gas pCO2 32 mmHg (35-46); iSTAT Arterial Blood Gas pH 7.51 (7.35-7.45); iSTAT Arterial Blood Gas pO2 49 mmHg (80-95); iSTAT Carbon Dioxide 27 mmol/L (24-31); iSTAT FiO2 100 %; iSTAT Site L Radial
[2021-05-16 07:31] LABS: Hemoglobin 15.1 g/dL (14.0-18.0); Mean Corpuscular Hemoglobin 31.8 pg (25-34); Mean Corpuscular Hgb Conc 34.3 g/dL (32-36); Mean Corpuscular Volume 92.6 fL (80-100); Mean Platelet Volume 10.2 fL (7.4-10.4); Platelet Count 405 K/uL (130-400); RDW Coefficient of Variation 13.8 % (11.5-14.5); RDW Standard Deviation 46.9 fL (36.4-46.3); Red Blood Count 4.75 M/uL (4.7-6.1); White Blood Count 12.94 K/uL (4.8-10.8)
[2021-05-16 07:57] LABS: BUN Creatinine Ratio 34.2 (10-20); Bilirubin,Total 0.8 mg/dl (0.2-1.0); Calcium 7.8 mg/dl (8.5-10.1); Creatinine Clr Calc Pharmacy 128.6 ml/min; Est GFR (African American) 115.2 ml/min; Est GFR (Non-African American) 99.4 ml/min; Globulin 3.1 gm/dl (2.5-4.0); Total Protein 6.1 gm/dl (6.0-8.3)
--- NOTE | 2021-05-16 08:12 | XRay Report ---
XR chest 1V portable HISTORY: Shortness of breath. COVID/ARDs COMPARISON: Chest 05/15/2021. FINDINGS: There are low lung volumes with mild elevation the right hemidiaphragm. The heart remains m ildly enlarged. There are poststernotomy changes. Hazy bilateral airspace opacities and diffuse inter stitial thickening persists. IMPRESSION: No change in the multifocal bilateral airspace opacities likely representing a viral pneumonia. ACT 112: Negative or not required by law. Electronically signed by: Kishore Mathur M.D. 05/16/2021 8:10 AM
[2021-05-16] MEDS: dexAMETHasone 6 MG in SYRINGE 0 ML IV SCH (08:15)
[2021-05-16] MEDS: ASPIRIN 81 MG ECTAB PO SCH (08:16)
--- NOTE | 2021-05-16 12:02 | Hospitalist Progress Note ---
Date of Service May 16, 2021 Assessment & Plan (1) Acute respiratory failure with hypoxia: (2) Pneumonia due to 2019 novel coronavirus: Plan: Presented from home with reports of cough and shortness of breath x 2 weeks. In the ED, hypoxic on room air to 88%, currently requiring HFNC Unvaccinated against covid-19 CTA chest negative for pulmonary embolism however shows extensive bilateral ground glass opacities consistent with COVID-19 pneumonia Patient is outside treatment window for remdesivir, does not meet criteria for baricitinib Supportive care with incentive spirometry, flutter valve, as needed albuterol, encourage self proning, HFNC Patient declines carey catheter-strict I/Os. Pulm on case (3) Cough: Plan: Robitussin PRN (4) S/P CABG x 4: Plan: chronic CAD, appears stable. No chest pain. Cont baby aspirin per home regimen. Note patient purposely stopped all medications about 5 years ago. Outpatient cardiology or PCP follow-up recommended. (5) DVT prophylaxis: Plan: -SQ Lovenox Full Code Dispo-PCU with worsening hypoxia. ROS-No Headache, No Visual Changes, No Nausea, No Vomiting, No Fever, No Chills, No Neck Pain or Stiffness, No Chest Pain, No Palpitations, +SOB, +STEARNS, +Cough, No Sputum, No Wheezing, No Abdominal Pain, No Diarrhea, No Hematemesis, No Hemoptysis, No Unexpected Weight Loss, No Flank pain, No Melena, No Hematochezia, No Frequency, No Urgency, No Burning, No Hematuria, No Rashes, No Diaphoresis. Appetite is low, Says he can't breathe Physical Exam Gen-AAO x 3, Mod Resp Distress, Afebrile, Obese, Lying in bed Head-NCAT, EOMI, PERRLA, Anicteric Sclera, No Posterior Pharyngeal Erythema Neck-Supple, No JVD, No Thyromegaly, No Masses, No LAD, No Bruits Lungs-Clear to Auscultation Bilaterally, No Rales, No Rhonchi, No Wheezing, No Crepitus Chest-No S4, +S1, +S2, No S3, No Murmurs, No Rubs, No Gallops, No Ectopy Abdomen-Soft, Bowel Sounds Present, Non Tender, Non Distended, No Hepatomegaly, No Splenomegaly, No Palpable Masses, No Rebound, No Rigidity, No Guarding Musculoskeletal-Full Range of Motion Bilaterally, No CVAT Extremities-No Cyanosis, No Clubbing, No Edema Nuero-Cranial Nerves II-XII grossly intact, Motor WNL, DTRs WNL, Strength WNL, Non Focal Psych-Normal Mood Admission and Anticipated Discharge Date Admission Date: May 12, 2021 Subjective Patient seen and examined in room 219. He is requiring high flow supplemental oxygen at 60 L/min and 100% FiO2. Saturations are currently 88%. He's anxious Results & Data Results & Data ([facility]) Vital Signs (Past 12 Hours) Vital Signs Temp Pulse Pulse Resp BP Pulse Ox 05/16/21 11:34 37.2 C 91 H 35 H 139/85 89 L 05/16/21 10:44 88 33 H 90 05/16/21 08:09 91 H 37 H 88 L 05/16/21 07:30 36.2 C L 90 35 H 127/84 94 05/16/21 04:35 93 05/16/21 04:15 91 H 36 H 89 L 05/16/21 03:52 36.6 C 99 H 22 99/75 L 96 Laboratory Results reviewed
[2021-05-16] MEDS ORDERED: PEPTAMEN INTENSE VHP 1.0 CAL 1,000 ML BAG GT SCH (14:45)
--- NOTE | 2021-05-16 14:45 | Critical Care Consultation ---
Date of Consultation May 16, 2021 Assessment & Plan (1) Acute respiratory failure with hypoxia: Reason Critically Ill: 60-year-old male with acute hypoxic respiratory failure secondary to COVID-19 pneumonia PLAN: Neuro: Sedation: Versed Analgesia: Fentanyl Neuromuscular blockade: Cis atracurium Resp: Pneumonia secondary to COVID-19 COVID-19 associated acute respiratory distress syndrome: P to F ratio less than 100 -Intubation mechanical ventilation -High PEEP low FiO2 table -Continue dexamethasone 10 mg IV daily for 10 days total CV: Coronary artery disease -Continue aspirin 81 mg Fluids/Renal: Negative net fluid balance ID: Mild leukocytosis, afebrile -Empiric Rocephin for 7 days GI/Nutrition: OG tube -Peptamen trickle tube feeds while prone and under neuromuscular blockade Heme: DVT prophylaxis: Lovenox Endocrine: ICU hyperglycemia protocol Vascular access: Plan for central venous access, radial arterial line Code Status: DNR in event of cardiac arrest Disposition: ICU (2) Pneumonia due to 2019 novel coronavirus: (3) S/P CABG x 4: Supervising Physician Co-Signing Physician Notes I have personally spent 95 minutes of critical care time in the direct management of this patient. This is a life/limb threatening event. This includes time spent evaluating patient, direct bedside care, chart review, placing orders, interpretation of diagnostic studies, discussion with consultants, patient, and/or family members regarding treatment decisions, as well as other required patient management activities. This time is exclusive of all separately billable procedures, and teaching time and separate from and in addition to any other critical care service time. History of Present Illness Reason for Consultation: Acute hypoxic respiratory failure secondary to COVID-19 pneumonia Attending Physician: Artemio Sheikh DO History of Present Illness Patient is a 60-year-old male with past medical history of coronary artery disease with a bypass x4 who was unvaccinated and experienced approximately 2 weeks of cough and exertional shortness of breath prior to presentation to the hospital. He was diagnosed with COVID-19 pneumonia and has had progressive hypoxia requiring escalating doses of oxygen to include noninvasive mechanical ventilation high flow nasal cannula and BiPAP. He is currently saturating in the low 90s high 80s on 100% FiO2, reports he is extremely uncomfortable. We had an extensive discussion regarding goals of care and likelihood for need of tracheostomy as well as significant respiratory disability if he were to survive COVID-19 infection. He reports that he has a strong chloe and does not want to undergo tracheostomy if he is unable to be liberated from the ventilator in 14 days, he also would not want heroic measures undertaken if he were to suffer a cardiac arrest. He reports he would want his to be his medical decision- maker. I discussed with the patient's 's wishes she is in agreement and u nderstanding and we are making arrangements for her to visit the patient prior to intubation. Allergies Allergy/AdvReac Type Severity Reaction Status Date / Time No Known Allergies Allergy Unverified 05/12/21 10:29 Home Medications Medication Instructions Recorded Confirmed Type Aspir-81 81 mg PO QAM 05/14/21 05/14/21 History Patient History Surgical History S/P CABG x 4 Family History Father Lung cancer Mother Lung cancer Social History Smoking Status: Never smoker Second Hand Exposure: No; Do You Dip or Chew Tobacco: No; Tobacco Cessation Education Requested by Patient: No Hx Alcohol Use: No Hx Substance Use: No Preferred Language: Kyrgyz [employer] Required: No Beliefs That Will Affect Care: None marital status: Current Living Situation: Spouse Other Information That Helps Us Care for You: No Feels Safe at Home: Yes Safety Concerns: Feels Safe At This Time Assistive Devices: Oxygen - Continuous Review of Systems Review of Systems: Exertional dyspnea Physical Exam Physical Exam: General: Alert. Uncomfortable in moderate distress Skin: Warm, dry, Head: Atraumatic Ears, nose, mouth and throat: airway patent, BiPAP mask in place Cardiovascular: Normal peripheral perfusion Respiratory: Respiratory distress with tachypnea and accessory muscle use Gastrointestinal: Non distended Musculoskeletal: No deformity Results & Data Results & Data ([facility]) Vital Signs (Past 12 Hours) Vital Signs Temp Pulse Pulse Resp BP Pulse Ox 05/16/21 11:34 37.2 C 91 H 35 H 139/85 89 L 05/16/21 10:44 88 33 H 90 05/16/21 08:09 91 H 37 H 88 L 05/16/21 07:30 36.2 C L 90 35 H 127/84 94 05/16/21 04:35 93 05/16/21 04:15 91 H 36 H 89 L 05/16/21 03:52 36.6 C 99 H 22 99/75 L 96 Critical Care Results & Data Vital Signs (Past 12 Hours) Vital Signs Temp Pulse Pulse Resp BP Pulse Ox 05/16/21 11:34 37.2 C 91 H 35 H 139/85 89 L 05/16/21 10:44 88 33 H 90 05/16/21 08:09 91 H 37 H 88 L 05/16/21 07:30 36.2 C L 90 35 H 127/84 94 05/16/21 04:35 93 05/16/21 04:15 91 H 36 H 89 L 05/16/21 03:52 36.6 C 99 H 22 99/75 L 96 Lab & Micro Results (Past 24 Hours) RBC 4.75 M/uL (4.7-6.1) 05/16/21 WBC 12.94 K/uL (4.8-10.8) H 05/16/21 Hgb 15.1 g/dL (14.0-18.0) 05/16/21 Hct 44.0 % (42-52) 05/16/21 MCV 92.6 fL (80-100) 05/16/21 MCH 31.8 pg (25-34) 05/16/21 MCHC 34.3 g/dL (32-36) 05/16/21 RDW Standard Deviation 46.9 fL (36.4-46.3) H 05/16/21 RDW Coefficient of Variation 13.8 % (11.5-14.5) 05/16/21 Plt Count 405 K/uL (130-400) H 05/16/21 MPV 10.2 fL (7.4-10.4) 05/16/21 Na 137 mmol/L (136-145) 05/16/21 K 4.0 mmol/L (3.5-5.1) 05/16/21 Cl 106 mmol/L (98-107) 05/16/21 CO2 25 mmol/L (21-32) 05/16/21 Anion Gap 6 (3-11) 05/16/21 BUN 25 mg/dl (6-23) H 05/16/21 Creatinine 0.73 mg/dl (0.6-1.4) 05/16/21 Estimated GFR ( Amer) 115.2 ml/min 05/16/21 Estimated GFR (Non-Af Amer) 99.4 ml/min 05/16/21 BUN/Creatinine Ratio 34.2 (10-20) H 05/16/21 Glu 112 mg/dl (70-99(Fasting)) H 05/16/21 Ca 7.8 mg/dl (8.5-10.1) L 05/16/21 Total Bilirubin 0.8 mg/dl (0.2-1.0) 05/16/21 AST 58 U/L (13-39) H 05/16/21 ALT 39 U/L (7-52) 05/16/21 Alkaline Phosphatase 47 U/L (34-104) 05/16/21 TP 6.1 gm/dl (6.0-8.3) 05/16/21 Albumin 3.0 gm/dl (3.4-5.0) L 05/16/21 Globulin 3.1 gm/dl (2.5-4.0) 05/16/21 Albumin/Globulin Ratio 1.0 (0.9-2) 05/16/21 Calcium Level 7.8 mg/dl (8.5-10.1) L 05/16/21 06:58 05/16/21 Carter Test Pass 05/16/21 04:14 05/16/21 Diagnostic Findings (Past 24 Hours) Chest X-Ray 05/16/21 07:00 XR chest 1V portable HISTORY: Shortness of breath. COVID/ARDs COMPARISON: Chest 05/15/2021. FINDINGS: There are low lung volumes with mild elevation the right hemidiaphragm. The heart remains mildly enlarged. There are poststernotomy changes. Hazy bilateral airspace opacities and diffuse interstitial thickening persists. IMPRESSION: No change in the multifocal bilateral airspace opacities likely representing a viral pneumonia. ACT 112: Negative or not required by law. Electronically signed by: Kishore Mathur M.D. 05/16/2021 8:10 AM I & O Totals 24 Hours 05/15/21 05/16/21 05/17/21 06:59 06:59 06:59 Intake Total 200 / 200 340 / 340 Output Total 1150 / 1150 1175 / 1175 Balance -950 / -950 -835 / -835 Cumulative 05/12/21 09:55 thru 05/16/21 05:33 Intake Total 3484 Output Total 3275 Balance 209 RT Ventilator Mngmt (Last Documented) Ventilator Ordered Settings Respiratory Rate 35 05/16/21 11:34 Fraction of Inspired Oxygen 100 05/16/21 10:44 Ventilator - PT Measurements Respiratory Rate 35 Coding Level of Care Code Critical Care ea addt'l 30 min Diagnoses S/P CABG x 4 Z95.1 Acute respiratory failure with hypoxia J96.01 Pneumonia due to 2019 novel coronavirus U07.1; J12.82
[2021-05-16] MEDS ORDERED: STAT IV Infusion **Titration per Protocol STA ×2 (14:48)
[2021-05-16] MEDS ORDERED: STAT IV STA (14:48)
[2021-05-16] MEDS ORDERED: MIDAZOLAM BOLUS FROM BAG IV PRN (14:48)
--- NOTE | 2021-05-16 18:05 | Procedure Note ---
Procedure Note Date of Service May 16, 2021 Note Procedure Date: Noted above Procedure: Endotracheal intubation Pre-procedure Diagnosis: Acute hypoxic respiratory failure secondary to COVID-19 pneumonia Post-procedure Diagnosis: same as above Prior to Procedure: Informed Consent: Risks and benefits were discussed and verbal consent obtained Attending Staff: Emiliano Smith DO The identity of the patient was confirmed and a bedside time out was performed. Description of Procedure: Patient was evaluated and required intubation for impending respiratory failure. The patient was prepared in the usual fashion. A Whipple 2 laryngoscope was used. A 8 mm inner diameter endotrachial tube was placed endotracheally to 23 cm at the teeth. A grade 1 view was obtained. The endotracheal tube was noted to pass through the vocal cords. Chest rise was bilateral. Bilateral breath sounds were heard without air sounds in the abdomen. Mist was noted in the endotracheal tube. End-tidal CO2 measurement was positive. Chest x-ray shows proper endotracheal tube placement. Complications: Patient desaturated into the 70s and slowly recovered into the 90s Findings: Not applicable Specimens: Not applicable Estimated blood loss: Zero Coding CPT Codes Resuscitation - Resuscitation: 32349 Endotracheal Intubation, emergency ([id number]) [facility] Procedure Codes (Charges) Resuscitation Resuscitation: 04779 Endotracheal Intubation, emergency
--- NOTE | 2021-05-16 18:06 | Procedure Note ---
Procedure Note Date of Service May 16, 2021 Note Procedure date: Noted above Procedure: Central venous access Pre-procedure indication: Need for vasoactive medication administration Post-procedure Diagnosis: same as above Prior to Procedure: Informed Consent: The risks, benefits, indications, potential complications, and alternatives were explained to the patient and verbal informed consent obtained. Attending Staff: Emiliano Smith DO Resident/APC: Maria Skin Prep: Chlorhexidine Anesthesia: 4 mL 1% lidocaine without epinephrine The identity of the patient was confirmed and a bedside time out was performed. Description of Procedure: After sterile prep and sterile drape utilizing standard sterile technique the superficial skin of the right subclavian area was anesthetized. The target vessel was identified and entered with an 18-gauge needle. Dark venous blood return was noted. A guidewire was inserted through the needle and into the vessel. The needle was withdrawn and a skin kirt was made. A tissue dilator was advanced via Seldinger technique and removed. A triple lumen catheter was inserted via Seldinger technique and the guidewire removed. All ports amanda and flushed easily. A Biopatch was placed, and the catheter was secured via silk suture. A sterile dressing was then applied. Complications: None Estimated blood loss: Trace Patient tolerated the procedure well. Coding
--- NOTE | 2021-05-16 18:07 | Procedure Note ---
Procedure Note Date of Service May 16, 2021 Note Procedure date: Noted above Procedure: Radial artery cannulation Pre-procedure Diagnosis: Need for invasive monitoring frequent blood draws Post-procedure Diagnosis: same as above Prior to Procedure: Informed Consent: The risks, benefits, indications, potential complications, and alternatives were explained to the patient and verbal informed consent obtained. Attending Staff: Emiliano Smith DO Skin Prep: Chlorhexidine Anesthesia: 3 mL 1% lidocaine without epinephrine The identity of the patient was confirmed and a bedside time out was performed. Description of Procedure: After sterile prep and sterile drape utilizing stand conner sterile technique the superficial skin of the left radial artery was anesthetized. The target artery was identified via dynamic ultrasound guidance and entered with a 20-gauge arrow Angiocath. Pulsatile bright red blood return was noted. Via modified Seldinger technique the self-contained guidewire was advanced and the Angiocath advanced over the guidewire. The guidewire was removed and brisk arterial blood return was noted. The pressure monitor was connected, and the arterial line was secured via commercial securement device. A sterile dressing was then applied. Complications: None Estimated blood loss: Trace Patient tolerated the procedure well. Coding CPT Codes Tubes, Drains, and Vasc Access - Tubes, Drains, and Vasc Access: [id number] Insertion Catheter, Artery ([id number]) [facility] [place] (Charges) Tubes, Drains, and Vasc Access Procedure 1: Tubes, Drains, and Vasc Access: [id number] Insertion Catheter, Artery
[2021-05-16] MEDS: CISATRACURIUM BESYLATE 40 MG in DEXTROSE 5% 80 ML IV SCH ×3 (18:17→22:56)
[2021-05-16] MEDS: ARTIFICIAL TEARS OP OINT 3.5 GM TUBE OP SCH ×3 (18:17→22:57)
[2021-05-16] MEDS: fentaNYL citrate 2,500 MCG/250 ML BAG IV SCH (18:17)
[2021-05-16] MEDS: MIDAZOLAM HCL 125 MG/250 ML BAG IV SCH (18:18)
[2021-05-16] MEDS: ICU ELECTROLYTE REPLACEMENT PROTOCOL SCH (18:18)
[2021-05-16] MEDS: cefTRIAXone SODIUM 2,000 MG in DEXTROSE 5% 50 ML IV SCH (18:22)
--- NOTE | 2021-05-16 19:12 | XRay Report ---
XR chest 1V portable CLINICAL HISTORY: intubation COMPARISON STUDY: Chest CT May 12, 2021. Chest radiograph performed earlier today. FINDINGS: Tip of endotracheal tube is 3.4 cm above the markel. Nasogastric tube is coiled within the stomach. Tip projects over the gastric cardia. Right subclavian central line is in place. There is no pneumothorax. Cardiomediastinal silhouette is stable. Bilateral airspace opacities with interstitial thickening are again noted. IMPRESSION: 1. Satisfactory positioning of the endotracheal tube. 2. Nasogastric tube coiled within the stomach. Tip projects over the gastric cardia. 3. Bilateral airspace opacities suggestive of viral pneumonia. Slight improvement in right lung aerat ion. 4. No pneumothorax. ACT 112: Negative or not required by law. Electronically signed by: Edmar Chang M.D. 05/16/2021 7:10 PM
[2021-05-16] MEDS: ENOXAPARIN INJ 40 MG/0.4 ML SYR SQ SCH (20:30)
--- NOTE | 2021-05-16 21:12 | Communication Note ---
Date of Service: May 16, 2021 Procedure: Pronation Maneuver Attending: Dr. Smith APC: Quirino Evans PA-C Indication: Requiring lung recruitment intervention in the setting of advanced ARDS with poor lung compliance and oxygenation on standard ventilator settings. Patient requiring pronation in the setting of advanced ARDS per imaging, ventilator requirements, and calculated P:F ratio. Appropriate staff was assembled including myself, Respiratory Therapy, and Nursing Staff. A time-out was completed verifying correct patient, time from recent pronation/supination, current ventilator settings, review of any prior issues during pronation/supination maneuvers. Patient was fully undressed as to be able to view all current IV sites, central venous access sites, arterial lines, endotracheal tube, Mohr catheter, etc. After properly identifying/securing all lines, tubes, etc., the patient was ``papoosed using flat sheets. On my count, the patient was slid to the edge of the bed. After reevaluating all lines, tubes, etc., the patient was then placed on their side allowing for RT to maintain control of ET tube and ready for completion of Pronation maneuver. Final check of all lines, tubes, etc. was completed by myself and nursing staff. Blood pressure, heart rhythm, and oxygen saturations were monitored for several minutes s/p maneuver. Discussion was held with patients RN and RT regarding ongoing management. Patient tolerated maneuver well. No immediate complications were noted. TIME PRONE: 2105 I have personally spent 25 minutes of critical care time in the direct management of this patient. This is a life/limb threatening event. This includes time spent evaluating patient, direct bedside care, chart review, placing orders, interpretation of diagnostic studies, discussion with consultants, patient, and family members, as well as other required patient management activities. This time is exclusive of all separately billable procedures, and teaching time and separate from and in addition to any other critical care service time. Coding Level of Care Code Critical Care ea addt'l 30 min Time Spent (min) 25
[2021-05-17] MEDS: CISATRACURIUM BESYLATE 40 MG in DEXTROSE 5% 80 ML IV SCH ×8 (00:38→21:05)
[2021-05-17] MEDS: ARTIFICIAL TEARS OP OINT 3.5 GM TUBE OP SCH ×6 (03:22→21:59)
[2021-05-17 03:56] LABS: iSTAT Art Bld Gas pCO2 Correct 57 mmHg (35-46); iSTAT Art Bld Gas pH Corrected 7.342 (7.35-7.45); iSTAT Arterial Blood Gas HCO3 31 meg/L (19-24); iSTAT Arterial Blood Gas pCO2 55 mmHg (35-46); iSTAT Arterial Blood Gas pH 7.35 (7.35-7.45); iSTAT Arterial Blood Gas pO2 131 mmHg (80-95); iSTAT Arterial Blood Gas pO2 C 135; iSTAT Carbon Dioxide 32 mmol/L (24-31); iSTAT FiO2 65 %; iSTAT Hematocrit 43 % (42-52); iSTAT Hemoglobin 14.6 g/dl (14.0-18.0); iSTAT Potassium 4.3 mmol/L (3.3-5.0); iSTAT Site Art Line; iSTAT Sodium 139 mmol/L (135-144)
[2021-05-17 06:09] LABS: Basophils # (auto) 0.04 K/uL (0-0.2); Basophils % (auto) 0.2 %; Hemoglobin 14.7 g/dL (14.0-18.0); Immature Granulocytes # (auto) 0.09 K/uL (0.00-0.02); Immature Granulocytes % (auto) 0.6 %; Lymphocytes # (auto) 1.13 K/uL (1.2-3.4); Mean Corpuscular Hemoglobin 31.5 pg (25-34); Mean Corpuscular Hgb Conc 33.4 g/dL (32-36); Mean Corpuscular Volume 94.2 fL (80-100); Mean Platelet Volume 10.4 fL (7.4-10.4); Monocytes # (auto) 1.13 K/uL (0.11-0.59); Neutrophils # (auto) 13.74 K/uL (1.4-6.5); Neutrophils % (auto) 85.2 %; Platelet Count 434 K/uL (130-400); RDW Coefficient of Variation 13.9 % (11.5-14.5); RDW Standard Deviation 47.6 fL (36.4-46.3); Red Blood Count 4.67 M/uL (4.7-6.1); White Blood Count 16.13 K/uL (4.8-10.8)
[2021-05-17 06:39] LABS: BUN Creatinine Ratio 38.4 (10-20); Calcium 7.8 mg/dl (8.5-10.1); Creatinine Clr Calc Pharmacy 129.8 ml/min; Est GFR (African American) 115.2 ml/min; Est GFR (Non-African American) 99.4 ml/min; Magnesium 2.7 mg/dl (1.7-2.4); Phosphorus 3.3 mg/dl (2.5-4.9); Potassium 4.1 mmol/L (3.5-5.1)
[2021-05-17] MEDS: ICU ELECTROLYTE REPLACEMENT PROTOCOL SCH ×2 (06:40→17:45)
--- NOTE | 2021-05-17 06:59 | Critical Care Progress Note ---
Date of Service May 17, 2021 Assessment & Plan (1) Acute respiratory failure with hypoxia: (2) Pneumonia due to 2019 novel coronavirus: (3) Acute hypotension: (4) DVT prophylaxis: Plan: Reason Critically Ill: 60-year-old male with acute hypoxic respiratory failure secondary to COVID-19 pneumonia PLAN: Neuro: Sedation: Versed Analgesia: Fentanyl Neuromuscular blockade: Cis atracurium Continue all Resp: Pneumonia secondary to COVID-19 COVID-19 associated acute respiratory distress syndrome: P to F ratio less than 100 -Intubation mechanical ventilation -High PEEP low FiO2 table -Continue dexamethasone 10 mg IV daily for 10 days total -Plan to prone today again--wean oxygen as tolerated CV: Coronary artery disease -Continue aspirin 81 mg Fluids/Renal: Negative net fluid balance ID: Mild leukocytosis, afebrile -Empiric Rocephin for 7 days GI/Nutrition: OG tube -Peptamen trickle tube feeds while prone and under neuromuscular blockade Heme: DVT prophylaxis: Lovenox Endocrine: ICU hyperglycemia protocol Vascular access: Right subclavian and left radial arterial line placed 05/17/21 Code Status: DNR in event of cardiac arrest Disposition: ICU Admission and Anticipated Discharge Date Admission Date: May 12, 2021 Supervising Physician Co-Signing Physician Notes Dr. Sifuentes was resident physician during care of patient. I separately evaluated patient for wesley portions of the history and the exam. I was present during the critical portion of medical decision making, and I discussed the case with the resident. I generally agree with the findings and plan. Mild decrease in oxygen requirements. Patient will be proned again today continue to wean oxygen as tolerated. Continue all other current interventions including neuromuscular blockade. Left message for najma Mjeia at [phone] - updated ribbon tier back I have personally spent 45 minutes of critical care time in the direct management of this patient. This is a life/limb threatening event. This includes time spent evaluating patient, direct bedside care, chart review, placing orders, interpretation of diagnostic studies, discussion with consultants, patient, and/or family members regarding treatment decisions, as well as other required patient management activities. This time is exclusive of all separately billable procedures, and teaching time and separate from and in addition to any other critical care service time. Subjective No acute events overnight. Oxygenation improved with proning yesterday. Review of Systems Review of Systems: Unobtainable due to endotracheal tube Physical Exam Physical Exam: GENERAL: Sedated, intubated HEENT: Atraumatic. ETT in place. CHEST/LUNGS: CTAB A/P. No crackles, wheezes, rales, rhonchi. HEART: RRR. No m/g/r. ABDOMEN: NT/ND, soft. BS+ x4 EXTREMITIES: No cyanosis, no clubbing, no edema SKIN: Warm and dry. No rashes or lesions. NEUROLOGIC: Sedated, difficult to assess Results & Data Results & Data ([facility]) Vital Signs (Past 12 Hours) Vital Signs Temp Pulse Resp Pulse Ox 05/17/21 04:00 82 05/17/21 03:45 99 H 23 96 05/17/21 02:00 37.4 C 78 24 95 05/17/21 01:30 37.3 C 78 24 95 05/17/21 01:00 37.2 C 78 24 95 05/17/21 00:30 37.1 C 77 24 95 05/17/21 00:00 37.1 C 76 24 96 05/16/21 23:30 37.1 C 77 24 95 05/16/21 23:24 99 H 24 96 05/16/21 23:00 37.1 C 76 24 96 05/16/21 22:30 37.2 C 80 24 96 05/16/21 22:00 37.2 C 79 24 96 05/16/21 21:30 37.1 C 79 24 97 05/16/21 21:00 78 28 H 97 05/16/21 20:30 81 24 97 05/16/21 20:19 99 H 23 97 05/16/21 20:00 79 24 97 05/16/21 19:30 79 24 97 05/16/21 19:00 78 24 97 Critical Care Results & Data Vital Signs (Past 12 Hours) Vital Signs Temp Pulse Resp Pulse Ox 05/17/21 04:00 82 05/17/21 03:45 99 H 23 96 05/17/21 02:00 37.4 C 78 24 95 05/17/21 01:30 37.3 C 78 24 95 05/17/21 01:00 37.2 C 78 24 95 05/17/21 00:30 37.1 C 77 24 95 05/17/21 00:00 37.1 C 76 24 96 01/21/22 23:30 37.1 C 77 24 95 05/16/21 23:24 99 H 24 96 05/16/21 23:00 37.1 C 76 24 96 05/16/21 22:30 37.2 C 80 24 96 05/16/21 22:00 37.2 C 79 24 96 05/16/21 21:30 37.1 C 79 24 97 05/16/21 21:00 78 28 H 97 05/16/21 20:30 81 24 97 05/16/21 20:19 99 H 23 97 05/16/21 20:00 79 24 97 05/16/21 19:30 79 24 97 05/16/21 19:00 78 24 97 Lab & Micro Results (Past 24 Hours) RBC 4.67 M/uL (4.7-6.1) L 05/17/21 WBC 16.13 K/uL (4.8-10.8) H 05/17/21 Hgb 14.7 g/dL (14.0-18.0) 05/17/21 Hct 44.0 % (42-52) 05/17/21 MCV 94.2 fL (80-100) 05/17/21 MCH 31.5 pg (25-34) 05/17/21 MCHC 33.4 g/dL (32-36) 05/17/21 RDW Standard Deviation 47.6 fL (36.4-46.3) H 05/17/21 RDW Coefficient of Variation 13.9 % (11.5-14.5) 05/17/21 Plt Count 434 K/uL (130-400) H 05/17/21 MPV 10.4 fL (7.4-10.4) 05/17/21 Neutrophils (%) (Auto) 85.2 % 05/17/21 Lymphocytes (%) (Auto) 7.0 % 05/17/21 Monocytes # (Auto) 1.13 K/uL (0.11-0.59) H 05/17/21 Eosinophils # (Auto) 0.00 K/uL (0-0.5) 05/17/21 Immature Granulocyte % (Auto) 0.6 % 05/17/21 Neutrophils # (Auto) 13.74 K/uL (1.4-6.5) H 05/17/21 Lymphocytes # (Auto) 1.13 K/uL (1.2-3.4) L 05/17/21 Monocytes # (Auto) 1.13 K/uL (0.11-0.59) H 05/17/21 Eosinophils # (Auto) 0.00 K/uL (0-0.5) 05/17/21 Basophils # (Auto) 0.04 K/uL (0-0.2) 05/17/21 Immature Granulocyte # (Auto) 0.09 K/uL (0.00-0.02) H 05/17/21 Na 137 mmol/L (136-145) 05/17/21 K 4.1 mmol/L (3.5-5.1) 05/17/21 Cl 103 mmol/L (98-107) 05/17/21 CO2 29 mmol/L (21-32) 05/17/21 Anion Gap 5 (3-11) 05/17/21 BUN 28 mg/dl (6-23) H 05/17/21 Creatinine 0.73 mg/dl (0.6-1.4) 05/17/21 Estimated GFR ( Amer) 115.2 ml/min 05/17/21 Estimated GFR (Non-Af Amer) 99.4 ml/min 05/17/21 BUN/Creatinine Ratio 38.4 (10-20) H 05/17/21 Glu 130 mg/dl (70-99(Fasting)) H 05/17/21 Ca 7.8 mg/dl (8.5-10.1) L 05/17/21 Phosphorus Level 3.3 mg/dl (2.5-4.9) 05/17/21 Mg 2.7 mg/dl (1.7-2.4) H 05/17/21 05:49 05/17/21 Calcium Level 7.8 mg/dl (8.5-10.1) L 05/17/21 05:49 05/17/21 Carter Test NA 05/17/21 03:42 05/17/21 Diagnostic Findings (Past 24 Hours) Chest X-Ray 05/16/21 07:00 XR chest 1V portable HISTORY: Shortness of breath. COVID/ARDs COMPARISON: Chest 05/15/2021. FINDINGS: There are low lung volumes with mild elevation the right hemidiaphragm. The heart remains mildly enlarged. There are poststernotomy changes. Hazy bilateral airspace opacities and diffuse interstitial thickening persists. IMPRESSION: No change in the multifocal bilateral airspace opacities likely representing a viral pneumonia. ACT 112: Negative or not required by law. Electronically signed by: Kishore Mathur M.D. 05/16/2021 8:10 AM Chest X-Ray 05/16/21 14:48 XR chest 1V portable CLINICAL HISTORY: intubation COMPARISON STUDY: Chest CT May 12, 2021. Chest radiograph performed earlier today. FINDINGS: Tip of endotracheal tube is 3.4 cm above the markel. Nasogastric tube is coiled within the stomach. Tip projects over the gastric cardia. Right subclavian central line is in place. There is no pneumothorax. Cardiomediastinal silhouette is stable. Bilateral airspace opacities with interstitial thickening are again noted. IMPRESSION: 1. Satisfactory positioning of the endotracheal tube. 2. Nasogastric tube coiled within the stomach. Tip projects over the gastric cardia. 3. Bilateral airspace opacities suggestive of viral pneumonia. Slight improvement in right lung aeration. 4. No pneumothorax. ACT 112: Negative or not required by law. Electronically signed by: Edmar Chang M.D. 05/16/2021 7:10 PM I & O Totals 24 Hours 05/15/21 05/16/21 05/17/21 06:59 06:59 06:59 Intake Total 200 / 200 340 / 340 738.995 / 738.995 Output Total 1150 / 1150 1175 / 1175 1150 / 1150 Balance -950 / -950 -835 / -835 -411.005 / -411.005 Cumulative 05/12/21 09:55 thru 05/17/21 06:46 Intake Total 4222.995 Output Total 4425 Balance -202.005 RT Ventilator Mngmt (Last Documented) Ventilator Ordered Settings Ventilator Support Mode Assist Control 05/17/21 03:45 Respiratory Rate 23 05/17/21 03:45 Ventilator Tidal Volume 420 05/17/21 03:45 Setting Minute Ventilation 10.1 05/17/21 03:45 Positive End Expiratory 14 05/17/21 03:45 Pressure Fraction of Inspired Oxygen 65 05/17/21 03:45 Peak Inspiratory Flow 34 01/21/22 17:57 Machine Comment settings decreased to +12 FiO2 60 05/17/21 03:45 % s/p ABG Ventilator - PT Measurements Respiratory Rate 23 Exhaled Tidal Volume 451 Minute Ventilation 10.1 Peak Inspiratory Airway 36 Pressure Plateau Pressure 32 Respiratory Cycle Inspiratory: 1:2.1 Expiratory Ratio Inspiratory Phase Time 0.80 End-Tidal CO2 36 Static Lung Compliance 25.06 Dynamic Lung Compliance 20.50 Normal Static Lung Compliance 46.00 Resident Activity Tracking Resident Involvement: Resident Care Provided Care Provided: Adult Hospital Medicine
[2021-05-17] MEDS: dexAMETHasone 10 MG in SYRINGE 0 ML IV SCH (07:56)
--- NOTE | 2021-05-17 08:09 | Billing Data ---
Date of Service May 17, 2021 Coding Level of Care Code Critical Care 1st - mins
[2021-05-17] MEDS: ASPIRIN 81 MG ECTAB PO SCH (08:23)
--- NOTE | 2021-05-17 09:22 | Hospitalist Progress Note ---
Date of Service May 17, 2021 Assessment & Plan (1) Acute respiratory failure with hypoxia: (2) Pneumonia due to 2019 novel coronavirus: Plan: Presented from home with reports of cough and shortness of breath x 2 weeks. In the ED, hypoxic on room air to 88%, currently requiring HFNC Unvaccinated against covid-19 CTA chest negative for pulmonary embolism however shows extensive bilateral ground glass opacities consistent with COVID-19 pneumonia Patient is outside treatment window for remdesivir, does not meet criteria for baricitinib, Vented, proning (3) Cough: (4) S/P CABG x 4: Plan: chronic CAD, appears stable. No chest pain. Cont baby aspirin per home regimen. Note patient purposely stopped all medications about 5 years ago. Outpatient cardiology or PCP follow-up recommended. (5) DVT prophylaxis: Plan: -SQ Lovenox Full Code Dispo-PCU with worsening hypoxia. ROS-vented and sedated does not offer any history Physical Exam Gen-not in acute distress, Afebrile, Obese, prone Head-NCAT, Vented Neck-Supple, No JVD, No Thyromegaly, No Masses, No LAD, No Bruits Lungs-Clear to Auscultation Bilaterally, No Rales, No Rhonchi, No Wheezing, No Crepitus Chest-No S4, +S1, +S2, No S3, No Murmurs, No Rubs, No Gallops, No Ectopy Abdomen-Prone Musculoskeletal-NA Extremities-No Cyanosis, No Clubbing, No Edema Nuero- Non Focal Psych-Vented Admission and Anticipated Discharge Date Admission Date: May 12, 2021 Subjective Patient seen today, vented, sedated, and prone, not acute distress Results & Data Results & Data ([facility]) Vital Signs (Past 12 Hours) Vital Signs Temp Pulse Resp BP Pulse Ox 05/17/21 08:00 82 132/67 05/17/21 04:00 82 05/17/21 03:45 99 H 23 96 05/17/21 02:00 37.4 C 78 24 95 05/17/21 01:30 37.3 C 78 24 95 05/17/21 01:00 37.2 C 78 24 95 05/17/21 00:30 37.1 C 77 24 95 05/17/21 00:00 37.1 C 76 24 96 05/16/21 23:30 37.1 C 77 24 95 05/16/21 23:24 99 H 24 96 05/16/21 23:00 37.1 C 76 24 96 05/16/21 22:30 37.2 C 80 24 96 05/16/21 22:00 37.2 C 79 24 96 05/16/21 21:30 37.1 C 79 24 97 Laboratory Results Reviewed
[2021-05-17] MEDS: MIDAZOLAM HCL 125 MG/250 ML BAG IV SCH (15:14)
[2021-05-17] MEDS: cefTRIAXone SODIUM 2,000 MG in DEXTROSE 5% 50 ML IV SCH (15:14)
[2021-05-17] MEDS: fentaNYL citrate 2,500 MCG/250 ML BAG IV SCH (15:14)
--- NOTE | 2021-05-17 20:54 | XRay Report ---
SINGLE VIEW CHEST CLINICAL HISTORY: Respiratory failure. FINDINGS: An AP, portable, upright chest radiograph is compared to study dated 05/16/2021. An endotrac heal tube, an enteric tube, and a right subclavian central venous catheter are unchanged in position. The patient is status post midline sternotomy. The heart is enlarged noting atherosclerotic calcific ation of the thoracic aorta. Multifocal airspace consolidation is again seen throughout both lungs. T his is unchanged to modestly worsened as compared to yesterday. No large pleural effusion or pneumoth orax is seen. The bony thorax is grossly intact. IMPRESSION: 1. Stable lines and tubes. 2. Multifocal airspace consolidation is unchanged to modestly worsened as compared to yesterday. 3. Cardiomegaly. ACT 112: Negative or not required by law. Electronically signed by: Steve Vega M.D. 05/17/2021 8:53 PM
[2021-05-17] MEDS: ENOXAPARIN INJ 40 MG/0.4 ML SYR SQ SCH (22:00)
[2021-05-18] MEDS: CISATRACURIUM BESYLATE 40 MG in DEXTROSE 5% 80 ML IV SCH ×9 (00:08→23:21)
[2021-05-18] MEDS: ARTIFICIAL TEARS OP OINT 3.5 GM TUBE OP SCH ×5 (02:46→18:44)
[2021-05-18 03:56] LABS: iSTAT Art Bld Gas pCO2 Correct 41 mmHg (35-46); iSTAT Art Bld Gas pH Corrected 7.452 (7.35-7.45); iSTAT Arterial Blood Gas HCO3 29 meg/L (19-24); iSTAT Arterial Blood Gas pCO2 42 mmHg (35-46); iSTAT Arterial Blood Gas pH 7.45 (7.35-7.45); iSTAT Arterial Blood Gas pO2 61 mmHg (80-95); iSTAT Arterial Blood Gas pO2 C 59; iSTAT Carbon Dioxide 30 mmol/L (24-31); iSTAT FiO2 30 %; iSTAT Hematocrit 39 % (42-52); iSTAT Hemoglobin 13.3 g/dl (14.0-18.0); iSTAT Potassium 4.1 mmol/L (3.3-5.0); iSTAT Site Art Line; iSTAT Sodium 137 mmol/L (135-144)
[2021-05-18 06:03] LABS: BUN Creatinine Ratio 45.9 (10-20); Calcium 7.8 mg/dl (8.5-10.1); Creatinine Clr Calc Pharmacy 128.7 ml/min; Est GFR (African American) 114.6 ml/min; Est GFR (Non-African American) 98.9 ml/min; Magnesium 2.8 mg/dl (1.7-2.4); Phosphorus 2.9 mg/dl (2.5-4.9); Potassium 3.8 mmol/L (3.5-5.1)
[2021-05-18] MEDS: ICU ELECTROLYTE REPLACEMENT PROTOCOL SCH ×2 (06:12→16:55)
[2021-05-18] MEDS: dexAMETHasone 10 MG in SYRINGE 0 ML IV SCH (07:43)
[2021-05-18] MEDS: ASPIRIN 81 MG ECTAB PO SCH (07:43)
[2021-05-18] MEDS ORDERED: POTASSIUM CHLORIDE 20 MEQ/15 ML UDC PO STA (08:54)
[2021-05-18] MEDS ORDERED: FUROSEMIDE 40 MG/4 ML VIAL IV ONE (08:54)
--- NOTE | 2021-05-18 08:57 | Critical Care Progress Note ---
Date of Service May 18, 2021 Assessment & Plan (1) Acute respiratory failure with hypoxia: (2) Pneumonia due to 2019 novel coronavirus: (3) Acute hypotension: (4) DVT prophylaxis: Plan: Reason Critically Ill: 60-year-old male with acute hypoxic respiratory failure secondary to COVID-19 pneumonia PLAN: Neuro: Sedation: Versed Analgesia: Fentanyl Neuromuscular blockade: Cis atracurium Continue all Resp: Pneumonia secondary to COVID-19 COVID-19 associated acute respiratory distress syndrome: P to F ratio improved: Less than 200 -Intubation mechanical ventilation -High PEEP low FiO2 table -Continue dexamethasone 10 mg IV daily for 10 days total -Prone again today CV: Coronary artery disease -Continue aspirin 81 mg Fluids/Renal: Negative net fluid balance -40 mg Lasix today x1 -40 M EQ K-Dur x1 ID: Mild leukocytosis, afebrile -Empiric Rocephin for 7 days GI/Nutrition: OG tube -Peptamen trickle tube feeds while prone and under neuromuscular bloc min Heme: DVT prophylaxis: Lovenox Endocrine: ICU hyperglycemia protocol Vascular access: Right subclavian and left radial arterial line placed 05/17/21 Code Status: DNR in event of cardiac arrest Disposition: ICU Updated najma Mejia [phone] Admission and Anticipated Discharge Date Admission Date: May 12, 2021 Subjective No overnight events slightly decreased oxygen requirements Review of Systems Review of Systems: Unobtainable due to endotracheal tube Physical Exam Physical Exam: General: Sedated. nontoxic. GCS 3 TP Skin: Warm, dry, Head: Atraumatic Ears, nose, mouth and throat: airway obscured by endotracheal tube Cardiovascular: Normal peripheral perfusion Respiratory: Ventilator settings reviewed Gastrointestinal: Non distended Musculoskeletal: No deformity Results & Data Results & Data ([facility]) Vital Signs (Past 12 Hours) Vital Signs Temp Pulse Resp BP Pulse Ox 05/18/21 06:00 36.5 C 54 L 24 90 05/18/21 05:30 36.6 C 54 L 24 90 05/18/21 05:00 36.6 C 53 L 24 90 05/18/21 04:30 36.6 C 53 L 24 91 05/18/21 04:00 36.6 C 54 L 24 102/64 90 05/18/21 03:30 36.6 C 53 L 24 90 05/18/21 03:00 36.7 C 53 L 24 98/64 L 90 05/18/21 02:30 36.7 C 54 L 24 90 05/18/21 02:25 59 L 25 H 92 05/18/21 02:00 36.7 C 54 L 24 100/66 92 05/18/21 01:30 36.8 C 55 L 24 91 05/18/21 01:00 36.9 C 56 L 24 97/64 L 92 05/18/21 00:30 37.0 C 56 L 24 92 05/18/21 00:00 37.0 C 58 L 24 104/67 92 05/17/21 23:30 37.1 C 57 L 24 91 05/17/21 23:00 37.1 C 56 L 24 91 05/17/21 22:38 56 L 24 91 05/17/21 22:30 37.0 C 56 L 24 91 05/17/21 22:00 37.0 C 55 L 24 92 05/17/21 21:30 37.1 C 57 L 24 05/17/21 21:00 37.0 C 55 L 24 91 Critical Care Results & Data Vital Signs (Past 12 Hours) Vital Signs Temp Pulse Resp BP Pulse Ox 05/18/21 06:00 36.5 C 54 L 24 90 05/18/21 05:30 36.6 C 54 L 24 05/18/21 05:00 36.6 C 53 L 24 90 05/18/21 04:30 36.6 C 53 L 24 91 05/18/21 04:00 36.6 C 54 L 24 102/64 90 05/18/21 03:30 36.6 C 53 L 24 90 05/18/21 03:00 36.7 C 53 L 24 98/64 L 90 05/18/21 02:30 36.7 C 54 L 24 90 05/18/21 02:25 59 L 25 H 92 05/18/21 02:00 36.7 C 54 L 24 100/66 92 05/18/21 01:30 36.8 C 55 L 24 91 05/18/21 01:00 36.9 C 56 L 24 97/64 L 92 05/18/21 00:30 37.0 C 56 L 24 92 05/18/21 00:00 37.0 C 58 L 24 104/67 92 05/17/21 23:30 37.1 C 57 L 24 05/17/21 23:00 37.1 C 56 L 24 91 05/17/21 22:38 56 L 24 05/17/21 22:30 37.0 C 56 L 24 91 05/17/21 22:00 37.0 C 55 L 24 92 05/17/21 21:30 37.1 C 57 L 24 05/17/21 21:00 37.0 C 55 L 24 Lab & Micro Results (Past 24 Hours) No Data to Display Na 135 mmol/L (136-145) L 05/18/21 K 3.8 mmol/L (3.5-5.1) 05/18/21 Cl 102 mmol/L (98-107) 05/18/21 CO2 27 mmol/L (21-32) 05/18/21 Anion Gap 6 (3-11) 05/18/21 BUN 34 mg/dl (6-23) H 05/18/21 Creatinine 0.74 mg/dl (0.6-1.4) 05/18/21 Estimated GFR ( Amer) 114.6 ml/min 05/18/21 Estimated GFR (Non-Af Amer) 98.9 ml/min 05/18/21 BUN/Creatinine Ratio 45.9 (10-20) H 05/18/21 Glu 134 mg/dl (70-99(Fasting)) H 05/18/21 Ca 7.8 mg/dl (8.5-10.1) L 05/18/21 Phosphorus Level 2.9 mg/dl (2.5-4.9) 05/18/21 Mg 2.8 mg/dl (1.7-2.4) H 05/18/21 04:49 05/18/21 Calcium Level 7.8 mg/dl (8.5-10.1) L 05/18/21 04:49 05/18/21 Carter Test NA 05/18/21 03:41 05/18/21 Diagnostic Findings (Past 24 Hours) Chest X-Ray 05/17/21 06:00 SINGLE VIEW CHEST CLINICAL HISTORY: Respiratory failure. FINDINGS: An AP, portable, upright chest radiograph is compared to study dated 05/16/2021. An endotracheal tube, an enteric tube, and a right subclavian central venous catheter are unchanged in position. The patient is status post midline sternotomy. The heart is enlarged noting atherosclerotic calcification of the thoracic aorta. Multifocal airspace consolidation is again seen throughout both lungs. This is unchanged to modestly worsened as compared to yesterday. No large pleural effusion or pneumothorax is seen. The bony thorax is grossly intact. IMPRESSION: 1. Stable lines and tubes. 2. Multifocal airspace consolidation is unchanged to modestly worsened as compared to yesterday. 3. Cardiomegaly. ACT 112: Negative or not required by law. Electronically signed by: Steve Vega M.D. 05/17/2021 8:53 PM I & O Totals 24 Hours 05/17/21 05/18/21 05/19/21 06:59 06:59 06:59 Intake Total 738.995 / 011.863 5267.248 / 1899.248 Output Total 1150 / 1150 1000 / 1000 Balance -411.005 / -411.005 899.248 / 899.248 Cumulative 05/12/21 09:55 thru 05/18/21 06:43 Intake Total 6122.243 Output Total 5425 Balance 697.243 RT Ventilator Mngmt (Last Documented) Ventilator Ordered Settings Ventilator Support Mode Assist Control 05/18/21 02:25 Respiratory Rate 24 05/18/21 06:00 Ventilator Tidal Volume 450 05/18/21 02:25 Setting Minute Ventilation 10.5 05/18/21 02:25 Positive End Expiratory 10 05/18/21 02:25 Pressure Fraction of Inspired Oxygen 30 05/18/21 02:25 Peak Inspiratory Flow 34 05/17/21 15:51 Machine Comment decreased peep to 10, decreased 05/17/21 11:30 fi02 to 40% Ventilator - PT Measurements Respiratory Rate 24 Exhaled Tidal Volume 450 Minute Ventilation 10.5 Peak Inspiratory Airway 25 Pressure Plateau Pressure 23.5 Respiratory Cycle Inspiratory: 1:2.1 Expiratory Ratio Inspiratory Phase Time 0.80 End-Tidal CO2 34 Static Lung Compliance 33.33 Dynamic Lung Compliance 30.00 Normal Static Lung Compliance 47.00 Patient Measurements Comment Supinated Coding Level of Care Code Critical Care 1st 30-74 mins Diagnoses Acute respiratory failure with hypoxia J96.01 Pneumonia due to 2019 novel coronavirus U07.1; J12.82 Acute hypotension I95.9 DVT prophylaxis Z29.9
--- NOTE | 2021-05-18 09:24 | Hospitalist Progress Note ---
Date of Service May 18, 2021 Assessment & Plan (1) Acute respiratory failure with hypoxia: (2) Pneumonia due to 2019 novel coronavirus: Plan: Presented from home with reports of cough and shortness of breath x 2 weeks. In the ED, hypoxic on room air to 88%, currently requiring HFNC Unvaccinated against covid-19 CTA chest negative for pulmonary embolism however shows extensive bilateral ground glass opacities consistent with COVID-19 pneumonia Patient is outside treatment window for remdesivir, does not meet criteria for baricitinib, Vented, proning (3) Cough: (4) S/P CABG x 4: Plan: chronic CAD, appears stable. No chest pain. Cont baby aspirin per home regimen. Note patient purposely stopped all medications about 5 years ago. Outpatient cardiology or PCP follow-up recommended. (5) DVT prophylaxis: Plan: -SQ Lovenox Full Code Dispo-PCU with worsening hypoxia. ROS-vented and sedated does not offer any history Physical Exam Gen-not in acute distress, Afebrile, Obese, prone Head-NCAT, Vented Neck-Supple, No JVD, No Thyromegaly, No Masses, No LAD, No Bruits Lungs-Clear to Auscultation Bilaterally, No Rales, No Rhonchi, No Wheezing, No Crepitus Chest-No S4, +S1, +S2, No S3, No Murmurs, No Rubs, No Gallops, No Ectopy Abdomen-Prone Musculoskeletal-NA Extremities-No Cyanosis, No Clubbing, No Edema Nuero- Non Focal Psych-Vented Admission and Anticipated Discharge Date Admission Date: May 12, 2021 Subjective No overnight events slightly decreased oxygen requirements, getting proned while I was at bedside Results & Data Results & Data ([facility]) Vital Signs (Past 12 Hours) Vital Signs Temp Pulse Resp BP Pulse Ox 05/18/21 06:00 36.5 C 54 L 24 90 05/18/21 05:30 36.6 C 54 L 24 90 05/18/21 05:00 36.6 C 53 L 24 90 05/18/21 04:30 36.6 C 53 L 24 91 05/18/21 04:00 36.6 C 54 L 24 102/64 90 05/18/21 03:30 36.6 C 53 L 24 90 05/18/21 03:00 36.7 C 53 L 24 98/64 L 90 05/18/21 02:30 36.7 C 54 L 24 90 05/18/21 02:25 59 L 25 H 92 05/18/21 02:00 36.7 C 54 L 24 100/66 92 05/18/21 01:30 36.8 C 55 L 24 91 05/18/21 01:00 36.9 C 56 L 24 97/64 L 92 05/18/21 00:30 37.0 C 56 L 24 92 05/18/21 00:00 37.0 C 58 L 24 104/67 92 05/17/21 23:30 37.1 C 57 L 24 91 05/17/21 23:00 37.1 C 56 L 24 91 05/17/21 22:38 56 L 24 91 05/17/21 22:30 37.0 C 56 L 24 91 05/17/21 22:00 37.0 C 55 L 24 92 05/17/21 21:30 37.1 C 57 L 24 91 Laboratory Results reviewed
--- NOTE | 2021-05-18 10:51 | XRay Report ---
XR chest 1V portable CLINICAL HISTORY: f/u TECHNIQUE: Single frontal radiograph of the chest was obtained. Comparison: Comparison is made to chest one view 05/17/2021 FINDINGS: Lines and tubes are stable. The cardiomediastinal silhouette is stable. Multifocal airspace opacities are seen. No evidence of pleural effusion or pneumothorax. IMPRESSION: Interval minimal improvement in multifocal airspace opacities. ACT 112: Negative or not required by law. Electronically signed by: David Khan M.D. 05/18/2021 10:49 AM
[2021-05-18] MEDS: MIDAZOLAM HCL 125 MG/250 ML BAG IV SCH (14:26)
[2021-05-18] MEDS: fentaNYL citrate 2,500 MCG/250 ML BAG IV SCH (14:26)
[2021-05-18] MEDS: cefTRIAXone SODIUM 2,000 MG in DEXTROSE 5% 50 ML IV SCH (16:16)
[2021-05-18] MEDS: ENOXAPARIN INJ 40 MG/0.4 ML SYR SQ SCH (19:45)
[2021-05-19] MEDS: ARTIFICIAL TEARS OP OINT 3.5 GM TUBE OP SCH ×4 (00:14→10:11)
[2021-05-19] MEDS: CISATRACURIUM BESYLATE 40 MG in DEXTROSE 5% 80 ML IV SCH (02:01)
[2021-05-19 03:21] LABS: iSTAT Arterial Blood Gas HCO3 29 meg/L (19-24); iSTAT Arterial Blood Gas pCO2 43 mmHg (35-46); iSTAT Arterial Blood Gas pH 7.44 (7.35-7.45); iSTAT Arterial Blood Gas pO2 71 mmHg (80-95); iSTAT Carbon Dioxide 31 mmol/L (24-31); iSTAT FiO2 30 %; iSTAT Site Art Line
[2021-05-19 05:00] LABS: Hematocrit (blood only) 41.9 % (42-52); Hemoglobin 14.4 g/dL (14.0-18.0); Mean Corpuscular Hemoglobin 32.1 pg (25-34); Mean Corpuscular Hgb Conc 34.4 g/dL (32-36); Mean Corpuscular Volume 93.3 fL (80-100); Mean Platelet Volume 10.6 fL (7.4-10.4); Platelet Count 465 K/uL (130-400); RDW Coefficient of Variation 13.3 % (11.5-14.5); RDW Standard Deviation 45.7 fL (36.4-46.3); Red Blood Count 4.49 M/uL (4.7-6.1); White Blood Count 13.08 K/uL (4.8-10.8)
[2021-05-19 05:14] LABS: BUN Creatinine Ratio 51.7 (10-20); Calcium 7.7 mg/dl (8.5-10.1); Creatinine Clr Calc Pharmacy 158.7 ml/min; Est GFR (African American) 124.9 ml/min; Est GFR (Non-African American) 107.8 ml/min; Magnesium 2.5 mg/dl (1.7-2.4); Phosphorus 2.7 mg/dl (2.5-4.9); Potassium 4.1 mmol/L (3.5-5.1)
[2021-05-19 05:56] LABS: Basophils # (auto) 0.03 K/uL (0-0.2); Basophils % (auto) 0.2 %; Eosinophils # (auto) 0.09 K/uL (0-0.5); Eosinophils % (auto) 0.7 %; Immature Granulocytes # (auto) 0.28 K/uL (0.00-0.02); Immature Granulocytes % (auto) 2.1 %; Lymphocytes # (auto) 1.74 K/uL (1.2-3.4); Lymphocytes % (auto) 13.3 %; Monocytes # (auto) 1.14 K/uL (0.11-0.59); Monocytes % (auto) 8.7 %; RBC Morphology Unremarkable
--- NOTE | 2021-05-19 06:04 | Communication Note ---
Date of Service: May 19, 2021 Procedure: Supination Maneuver Attending: Dr. Smith APC: Quirino Evans PA-C Indication: Requiring lung recruitment intervention in the setting of advanced ARDS with poor lung compliance and oxygenation on standard ventilator settings. Patient requiring supination in the setting of advanced ARDS per imaging, ventilator requirements, and calculated P:F ratio. Appropriate staff was assembled including myself, Respiratory Therapy, and Nursing Staff. A time-out was completed verifying correct patient, time from recent pronation/supination, current ventilator settings, review of any prior issues during pronation/supination maneuvers. Patient was fully undressed as to be able to view all current IV sites, central venous access sites, arterial lines, endotracheal tube, Mohr catheter, etc. After properly identifying/securing all lines, tubes, etc., the patient was ``papoosed using flat sheets. On my count, the patient was slid to the edge of the bed. After reevaluating all lines, tubes, etc., the patient was then placed on their side allowing for RT to maintain control of ET tube and ready for completion of Supination maneuver. Final check of all lines, tubes, etc. was completed by myself and nursing staff. Blood pressure, heart rhythm, and oxygen saturations were monitored for several minutes s/p maneuver. Discussion was held with patients RN and RT regarding ongoing management. Patient tolerated maneuver well. No immediate complications were noted. TIME SUPINE: 0345 I have personally spent 25 minutes of critical care time in the direct management of this patient. This is a life/limb threatening event. This includes time spent evaluating patient, direct bedside care, chart review, placing orders, interpretation of diagnostic studies, discussion with consultants, patient, and family members, as well as other required patient management activities. This time is exclusive of all separately billable procedures, and teaching time and separate from and in addition to any other critical care service time. Coding Level of Care Code Critical Care 1st 30-74 mins Time Spent (min) 25
[2021-05-19] MEDS: ICU ELECTROLYTE REPLACEMENT PROTOCOL SCH ×2 (06:27→17:27)
--- NOTE | 2021-05-19 07:25 | XRay Report ---
SINGLE VIEW CHEST CLINICAL HISTORY: Respiratory failure. FINDINGS: An AP, portable, upright chest radiograph is compared to study dated 05/18/2021. An endotrac heal tube, an enteric tube, and a right subclavian central venous catheter are unchanged in position. The patient is status post midline sternotomy. The heart is enlarged noting atherosclerotic calcific ation of the thoracic aorta. Multifocal airspace consolidation is again seen throughout both lungs. T his is unchanged from yesterday. No large pleural effusion or pneumothorax is seen. The bony thorax i s grossly intact. IMPRESSION: 1. Stable lines and tubes. 2. Multifocal airspace consolidation is unchanged from yesterday. 3. Cardiomegaly. ACT 112: Negative or not required by law. Electronically signed by: Steve Vega M.D. 05/19/2021 7:24 AM
[2021-05-19] MEDS: ASPIRIN 81 MG ECTAB PO SCH (08:03)
[2021-05-19] MEDS: dexAMETHasone 10 MG in SYRINGE 0 ML IV SCH (08:03)
--- NOTE | 2021-05-19 08:58 | Hospitalist Progress Note ---
Date of Service May 19, 2021 Assessment & Plan (1) Acute respiratory failure with hypoxia: (2) Pneumonia due to 2019 novel coronavirus: Plan: Presented from home with reports of cough and shortness of breath x 2 weeks. In the ED, hypoxic on room air to 88%, currently requiring HFNC Unvaccinated against covid-19 CTA chest negative for pulmonary embolism however shows extensive bilateral ground glass opacities consistent with COVID-19 pneumonia Patient is outside treatment window for remdesivir, did not meet criteria for baricitinib, Vented (3) Cough: (4) S/P CABG x 4: Plan: chronic CAD, appears stable. No chest pain. Cont baby aspirin per home regimen. Note patient purposely stopped all medications about 5 years ago. Outpatient cardiology or PCP follow-up recommended. (5) DVT prophylaxis: Plan: -SQ Lovenox Full Code Dispo-ICU. ROS-vented and sedated does not offer any history Physical Exam Gen-not in acute distress, Afebrile, Obese, supine Head-NCAT, Vented Neck-Supple, No JVD, No Thyromegaly, No Masses, No LAD, No Bruits Lungs-Clear to Auscultation Bilaterally, No Rales, No Rhonchi, No Wheezing, No Crepitus Chest-No S4, +S1, +S2, No S3, No Murmurs, No Rubs, No Gallops, No Ectopy Abdomen-Prone Musculoskeletal-NA Extremities-No Cyanosis, No Clubbing, No Edema Nuero- Non Focal Psych-Vented Admission and Anticipated Discharge Date Admission Date: May 12, 2021 Subjective No overnight events, done getting proned for now Results & Data Results & Data ([facility]) Vital Signs (Past 12 Hours) Vital Signs Temp Pulse Resp BP Pulse Ox 05/19/21 07:59 56 L 24 90 05/19/21 04:00 106/85 05/19/21 02:50 52 L 24 92 05/19/21 00:00 130/75 05/18/21 23:00 36.8 C 55 L 24 92 05/18/21 22:40 52 L 24 92 05/18/21 22:00 36.9 C 52 L 24 91 05/18/21 21:00 36.9 C 55 L 24 91 Laboratory Results Reviewed
[2021-05-19] MEDS ORDERED: POLYETHYLENE (MIRALAX) 17 GM PACK PO PRN (09:57)
[2021-05-19] MEDS ORDERED: PEPTAMEN INTENSE VHP 1.0 CAL 1,000 ML BAG GT SCH (10:45)
--- NOTE | 2021-05-19 11:38 | Critical Care Progress Note ---
Date of Service May 19, 2021 Assessment & Plan (1) Pneumonia due to 2019 novel coronavirus: (2) Acute respiratory failure with hypoxia: (3) S/P CABG x 4: (4) DVT prophylaxis: Plan: Patient did well on spontaneous breathing trial and was extubated to nasal marco julián. We decreased the dose of dexamethasone to 6 mg daily from 10 mg. Will complete a 10-day course. Continue Lovenox 40 mg twice daily. We will have speech therapy evaluate the patient swallowing tomorrow. Antibiotics discontinued as no obvious signs of bacterial infection at this time. Will limit sedatives. Will need to restart aspirin once able to swallow. Can likely downgrade out of the ICU later today. CRITICAL CARE TIME - I have personally spent 39 minutes of critical care time in the direct management of this patient. This is a life/limb threatening event. This includes time spent evaluating patient, direct bedside care, chart review, placing orders, interpretation of diagnostic studies, discussion with consultants, patient, and family members, as well as other required patient management activities. This time is exclusive of all separately billable procedures, and teaching time and separate from and in addition to any other critical care service time. Admission and Anticipated Discharge Date Admission Date: May 12, 2021 Subjective Patient seen and examined at bedside. All sedation weaned off neuromuscular blockade discontinued overnight. Patient following commands. He did very well on spontaneous breathing trial and was extubated to 6 L of oxygen via nasal cannula. Review of Systems Review of Systems: All systems reviewed & are unremarkable except as noted in HPI & below Physical Exam Physical Exam: Constitutional: Ill-appearing. No distress. Eyes: Pupils are equal round and reactive to light. Conjunctivae are normal. Anicteric sclera. Ears nose, mouth and throat: Nasal cannula in place. No obvious deformities. Neck: Trachea is midline. Visual inspection is normal. Respiratory: Coarse breath sounds bilaterally. Mild tachypnea. Cardiovascular: Regular rate and rhythm. No murmurs. No edema. Gastrointestinal: Normal bowel sounds, soft, nontender and nondistended. No hepatosplenomegaly noted. Musculoskeletal: No cyanosis. Patient is able to move all extremities. Skin: No rashes, warm dry and intact. Neurologic: No obvious focal neurological deficits seen. Psychiatric: Alert and oriented x3 with a euthymic affect. Results & Data Results & Data ([facility]) Vital Signs (Past 12 Hours) Vital Signs Temp Pulse Resp BP Pulse Ox 05/19/21 10:30 77 27 H 91 05/19/21 09:00 37.0 C 58 L 24 90 05/19/21 08:00 36.8 C 61 24 121/63 90 05/19/21 07:59 56 L 24 90 05/19/21 07:00 36.5 C 63 24 92 05/19/21 06:45 36.6 C 51 L 24 95 05/19/21 04:00 106/85 05/19/21 02:50 52 L 24 92 05/19/21 00:00 130/75 Vital signs, labs and imaging reviewed. Chest x-ray with persistent bilateral infiltrates. Coding Level of Care Code Critical Care 1st 30-74 mins Diagnoses Pneumonia due to 2019 novel coronavirus U07.1; J12.82 Acute respiratory failure with hypoxia J96.01 S/P CABG x 4 Z95.1 DVT prophylaxis Z29.9 Time Spent (min) 39
[2021-05-19] MEDS: ENOXAPARIN INJ 40 MG/0.4 ML SYR SQ SCH (20:44)
[2021-05-19] MEDS: DOCUSATE SODIUM SYRUP 100 MG/10 ML UDC PO SCH (20:45)
[2021-05-20 05:10] LABS: BUN Creatinine Ratio 50.8 (10-20); Creatinine Clr Calc Pharmacy 161.4 ml/min; Est GFR (African American) 125.8 ml/min; Est GFR (Non-African American) 108.5 ml/min; Magnesium 2.3 mg/dl (1.7-2.4); Phosphorus 2.6 mg/dl (2.5-4.9); Potassium 3.9 mmol/L (3.5-5.1)
[2021-05-20 05:31] LABS: iSTAT Art Bld Gas pCO2 Correct 30 mmHg (35-46); iSTAT Art Bld Gas pH Corrected 7.548 (7.35-7.45); iSTAT Arterial Blood Gas HCO3 26 meg/L (19-24); iSTAT Arterial Blood Gas pCO2 30 mmHg (35-46); iSTAT Arterial Blood Gas pH 7.55 (7.35-7.45); iSTAT Arterial Blood Gas pO2 67 mmHg (80-95); iSTAT Arterial Blood Gas pO2 C 68; iSTAT Carbon Dioxide 27 mmol/L (24-31); iSTAT FiO2 70 %; iSTAT Hematocrit 46 % (42-52); iSTAT Hemoglobin 15.6 g/dl (14.0-18.0); iSTAT Potassium 3.8 mmol/L (3.3-5.0); iSTAT Site Art Line; iSTAT Sodium 137 mmol/L (135-144)
[2021-05-20] MEDS: ICU ELECTROLYTE REPLACEMENT PROTOCOL SCH ×2 (07:08→17:38)
[2021-05-20] MEDS: dexAMETHasone 6 MG in SYRINGE 0 ML IV SCH (07:09)
[2021-05-20] MEDS ORDERED: LORazepam 1 MG/2 ML VIAL IV STA ×2 (07:25→23:16)
[2021-05-20] MEDS ORDERED: FUROSEMIDE 40 MG/4 ML VIAL IV ONE ×3 (07:26→23:21)
[2021-05-20] MEDS: POTASSIUM CHLORIDE / WTR 20 MEQ/100 ML PLCT IV SCH ×2 (07:33→09:26)
[2021-05-20] MEDS: DOCUSATE SODIUM SYRUP 100 MG/10 ML UDC PO SCH (07:47)
[2021-05-20] MEDS: ASPIRIN 81 MG CHEW PO SCH (07:47)
--- NOTE | 2021-05-20 08:11 | XRay Report ---
SINGLE VIEW CHEST CLINICAL HISTORY: Respiratory failure. FINDINGS: An AP, portable, upright chest radiograph is compared to study dated 05/19/2021. An endotrac heal tube and an enteric tube have been removed. A right subclavian central venous catheter is unchan ged in position. The patient is status post midline sternotomy. The heart is enlarged noting atherosc lerotic calcification of the thoracic aorta. Multifocal airspace consolidation is again seen througho ut both lungs. This has increased from yesterday. No large pleural effusion or pneumothorax is seen. The bony thorax is grossly intact. IMPRESSION: 1. Endotracheal and enteric tubes have been removed. 2. Multifocal airspace consolidation has worsened as compared to yesterday. 3. Cardiomegaly. ACT 112: Negative or not required by law. Electronically signed by: Steve Vega M.D. 05/20/2021 8:09 AM
[2021-05-20] MEDS ORDERED: SENNOSIDES 8.8 MG/5 ML UDC PO SCH (09:00)
--- NOTE | 2021-05-20 09:02 | Critical Care Progress Note ---
Date of Service May 20, 2021 Assessment & Plan (1) Pneumonia due to 2019 novel coronavirus: (2) Acute respiratory failure with hypoxia: (3) S/P CABG x 4: (4) DVT prophylaxis: Plan: Unfortunately, his oxygen requirements continued to worsen since his extubation on 05/19/2021. I did contact the patient's and discussed the situation with her over the phone. She is going to get back to us to discuss with her family with regards to whether he would like to be reintubated. Continue Decadron for total 10 days. Continue Lovenox 40 mg twice daily. We will keep the patient n.p.o. We will hold on antibiotics at this time. I do think there is an element of flash pulmonary edema given his rising blood pressure and chest x-ray findings consistent with increased interstitial fluid. We will give a one-time dose of 40 mg IV Lasix. He was also given a one-time dose of labetalol maintain his systolic blood pressure under 160. CRITICAL CARE TIME - I have personally spent 44 minutes of critical care time in the direct management of this patient. This is a life/limb threatening event. This includes time spent evaluating patient, direct bedside care, chart review, placing orders, interpretation of diagnostic studies, discussion with consultants, patient, and family members, as well as other required patient management activities. This time is exclusive of all separately billable procedures, and teaching time and separate from and in addition to any other critical care service time. Admission and Anticipated Discharge Date Admission Date: May 12, 2021 Subjective Patient seen and examined. He continues to have some delirium and has had increasing oxygen demands. He is currently on 40 L of oxygen 70 to 80% FiO2 saturating in the low 90s. He is unable to participate in the review of systems otherwise. Physical Exam Physical Exam: Constitutional: Ill-appearing. Mild distress. Eyes: Pupils are equal round and reactive to light. Conjunctivae are normal. Anicteric sclera. Ears nose, mouth and throat: Nasal cannula in place. No obvious deformities. Neck: Trachea is midline. Visual inspection is normal. Respiratory: Coarse breath sounds bilaterally. Mild tachypnea. Cardiovascular: Regular rate and rhythm. No murmurs. No edema. Gastrointestinal: Normal bowel sounds, soft, nontender and nondistended. No hepatosplenomegaly noted. Musculoskeletal: No cyanosis. Patient is able to move all extremities. Skin: No rashes, warm dry and intact. Neurologic: No obvious focal neurological deficits seen. Psychiatric: Appears anxious and delirious. Results & Data Results & Data ([facility]) Vital Signs (Past 12 Hours) Vital Signs Temp Pulse Pulse Resp BP Pulse Ox 05/20/21 08:00 37.3 C 101 H 29 H 171/100 H 93 05/20/21 07:44 37.2 C 99 H 37 H 167/112 H 92 05/20/21 07:19 37.1 C 101 H 32 H 164/97 H 94 05/20/21 07:15 101 H 20 90 05/20/21 07:00 37.2 C 109 H 21 84 L 05/20/21 06:45 37.2 C 104 H 24 91 05/20/21 05:44 100 H 32 H 92 05/20/21 02:00 37.1 C 77 36 H 89 L 05/20/21 01:44 37.1 C 81 29 H 151/82 H 91 05/20/21 01:30 37.1 C 84 35 H 89 L 05/20/21 01:00 37.2 C 87 34 H 90 05/20/21 00:44 37.2 C 83 32 H 148/85 H 90 05/20/21 00:30 37.2 C 82 31 H 90 05/20/21 00:00 37.3 C 86 35 H 139/41 L 92 05/19/21 23:30 37.3 C 75 30 H 91 05/19/21 23:14 37.3 C 81 31 H 148/84 H 89 L 05/19/21 23:00 37.3 C 79 33 H 90 05/19/21 22:30 37.4 C 85 32 H 90 05/19/21 22:00 37.5 C 85 26 H 91 05/19/21 21:44 37.5 C 78 31 H 148/87 H 91 05/19/21 21:30 37.5 C 81 17 92 05/19/21 21:14 37.5 C 80 27 H 143/89 H 05/19/21 21:00 37.5 C 79 29 H 91 vital signs, labs and imaging personally reviewed Coding Level of Care Code Critical Care 1st 30-74 mins Diagnoses Pneumonia due to 2019 novel coronavirus U07.1; J12.82 Acute respiratory failure with hypoxia J96.01 S/P CABG x 4 Z95.1 DVT prophylaxis Z29.9 Time Spent (min) 44
[2021-05-20] MEDS: LABETALOL HCL IV 5 MG/ML 20ML IV STA ×2 (09:13→09:17)
--- NOTE | 2021-05-20 09:22 | Hospitalist Progress Note ---
Date of Service May 20, 2021 Assessment & Plan (1) Acute respiratory failure with hypoxia: (2) Pneumonia due to 2019 novel coronavirus: Plan: Presented from home with reports of cough and shortness of breath x 2 weeks. In the ED, hypoxic on room air to 88%, currently requiring HFNC Unvaccinated against covid-19 CTA chest negative for pulmonary embolism however shows extensive bilateral ground glass opacities consistent with COVID-19 pneumonia Patient is outside treatment window for remdesivir, did not meet criteria for baricitinib, Vented (3) Cough: (4) S/P CABG x 4: Plan: chronic CAD, appears stable. No chest pain. Cont baby aspirin per home regimen. Note patient purposely stopped all medications about 5 years ago. Outpatient cardiology or PCP follow-up recommended. (5) DVT prophylaxis: Plan: -SQ Lovenox Full Code Dispo-ICU. ROS-off vent and currently delirious not following commands, does not offer any history Physical Exam Gen-not in acute distress, Afebrile, Obese, supine Head-NCAT, on high flow nasal cannula Neck-Supple, No JVD, No Thyromegaly, No Masses, No LAD, No Bruits Lungs-Clear to Auscultation Bilaterally, No Rales, No Rhonchi, No Wheezing, No Crepitus Chest-No S4, +S1, +S2, No S3, No Murmurs, No Rubs, No Gallops, No Ectopy Abdomen-Prone Musculoskeletal-NA Extremities-No Cyanosis, No Clubbing, No Edema Nuero- Non Focal Psych-Vented Admission and Anticipated Discharge Date Admission Date: May 12, 2021 Subjective 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 He continues to have some delirium and has had increasing oxygen demands. He is currently on 40 L of oxygen 70 to 80% FiO2 saturating in the low 90s. He is unable to participate in the review of systems. Results & Data Results & Data ([facility]) Vital Signs (Past 12 Hours) Vital Signs Temp Pulse Pulse Resp BP Pulse Ox 05/20/21 08:00 37.3 C 101 H 29 H 171/100 H 93 05/20/21 07:44 37.2 C 99 H 37 H 167/112 H 92 05/20/21 07:19 37.1 C 101 H 32 H 164/97 H 94 05/20/21 07:15 101 H 20 90 05/20/21 07:00 37.2 C 109 H 21 84 L 05/20/21 06:45 37.2 C 104 H 24 91 05/20/21 05:44 100 H 32 H 92 05/20/21 02:00 37.1 C 77 36 H 89 L 05/20/21 01:44 37.1 C 81 29 H 151/82 H 91 05/20/21 01:30 37.1 C 84 35 H 89 L 05/20/21 01:00 37.2 C 87 34 H 90 05/20/21 00:44 37.2 C 83 32 H 148/85 H 90 05/20/21 00:30 37.2 C 82 31 H 90 05/20/21 00:00 37.3 C 86 35 H 139/41 L 92 05/19/21 23:30 37.3 C 75 30 H 91 05/19/21 23:14 37.3 C 81 31 H 148/84 H 89 L 05/19/21 23:00 37.3 C 79 33 H 90 05/19/21 22:30 37.4 C 85 32 H 90 05/19/21 22:00 37.5 C 85 26 H 91 05/19/21 21:44 37.5 C 78 31 H 148/87 H 91 05/19/21 21:30 37.5 C 81 17 92 Laboratory Results Reviewed
[2021-05-20] MEDS: DOCUSATE SODIUM 100 MG CAP PO SCH ×2 (10:52→23:23)
[2021-05-20] MEDS: SENNA 8.6 MG TAB PO SCH (10:52)
[2021-05-20] MEDS: ENOXAPARIN INJ 40 MG/0.4 ML SYR SQ SCH (23:24)
[2021-05-20 23:50] LABS: iSTAT Arterial Blood Gas HCO3 27 meg/L (19-24); iSTAT Arterial Blood Gas pCO2 34 mmHg (35-46); iSTAT Arterial Blood Gas pH 7.52 (7.35-7.45); iSTAT Arterial Blood Gas pO2 107 mmHg (80-95); iSTAT Carbon Dioxide 28 mmol/L (24-31); iSTAT FiO2 80 %; iSTAT Site Art Line
[2021-05-21] MEDS ORDERED: ACETAMINOPHEN 1,000 MG/100 ML VIAL IV PRN (02:27)
[2021-05-21 06:11] LABS: BUN Creatinine Ratio 35.1 (10-20); Calcium 8.2 mg/dl (8.5-10.1); Creatinine Clr Calc Pharmacy 98.2 ml/min; Est GFR (African American) 96.6 ml/min; Est GFR (Non-African American) 83.3 ml/min; Magnesium 2.5 mg/dl (1.7-2.4); Phosphorus 3.8 mg/dl (2.5-4.9); Potassium 3.9 mmol/L (3.5-5.1)
[2021-05-21 06:31] LABS: Basophils # (auto) 0.04 K/uL (0-0.2); Basophils % (auto) 0.2 %; Eosinophils # (auto) 0.12 K/uL (0-0.5); Eosinophils % (auto) 0.7 %; Hematocrit (blood only) 49.3 % (42-52); Immature Granulocytes # (auto) 0.46 K/uL (0.00-0.02); Immature Granulocytes % (auto) 2.6 %; Lymphocytes # (auto) 2.25 K/uL (1.2-3.4); Lymphocytes % (auto) 12.7 %; Mean Corpuscular Hemoglobin 32.8 pg (25-34); Mean Corpuscular Hgb Conc 34.5 g/dL (32-36); Mean Corpuscular Volume 95.2 fL (80-100); Mean Platelet Volume 10.6 fL (7.4-10.4); Monocytes # (auto) 2.14 K/uL (0.11-0.59); Neutrophils # (auto) 12.77 K/uL (1.4-6.5); Neutrophils % (auto) 71.8 %; Platelet Count 476 K/uL (130-400); RDW Coefficient of Variation 13.7 % (11.5-14.5); RDW Standard Deviation 46.9 fL (36.4-46.3); Red Blood Count 5.18 M/uL (4.7-6.1); White Blood Count 17.78 K/uL (4.8-10.8)
[2021-05-21] MEDS: dexAMETHasone 6 MG in SYRINGE 0 ML IV SCH (07:55)
[2021-05-21] MEDS: DOCUSATE SODIUM 100 MG CAP PO SCH ×2 (07:56→20:58)
[2021-05-21] MEDS: ASPIRIN 81 MG CHEW PO SCH (07:56)
[2021-05-21] MEDS: SENNA 8.6 MG TAB PO SCH (07:56)
--- NOTE | 2021-05-21 09:10 | XRay Report ---
SINGLE VIEW CHEST CLINICAL HISTORY: Covid pneumonia/ARDS. FINDINGS: An AP, portable, upright chest radiograph is compared to study dated 05/20/2021. An The exam ination is degraded by portable technique and patient rotation. A right subclavian central venous cat heter is unchanged in position. The patient is status post midline sternotomy. The heart is enlarged noting atherosclerotic calcification of the thoracic aorta. Multifocal airspace consolidation is agai n seen throughout both lungs. No large pleural effusion or pneumothorax is seen. The bony thorax is g rossly intact. IMPRESSION: 1. Multifocal airspace consolidation is unchanged as compared to yesterday. 2. Cardiomegaly. ACT 112: Negative or not required by law. Electronically signed by: Steve Vega M.D. 05/21/2021 9:09 AM
[2021-05-21] MEDS: ICU ELECTROLYTE REPLACEMENT PROTOCOL SCH ×2 (10:01→20:43)
--- NOTE | 2021-05-21 10:38 | Critical Care Progress Note ---
Date of Service May 21, 2021 Assessment & Plan (1) Pneumonia due to 2019 novel coronavirus: (2) Acute respiratory failure with hypoxia: (3) S/P CABG x 4: (4) DVT prophylaxis: (5) Delirium: Plan: His oxygen requirements have improved today. He is stable for downgrade out of the ICU. Continue Decadron for total 10 days. Continue Lovenox 40 mg twice daily. We will keep the patient n.p.o. Speech therapy consult ordered. Will initiate gentle hydration given lack of p.o. intake. Will hold on antibiotics at this time. Continue with as needed diuretic therapy. Anxiety component in his overall presentation. Will use low-dose Ativan as needed. Admission and Anticipated Discharge Date Admission Date: May 12, 2021 Subjective Patient has remained stable overnight and is requiring supplemental oxygen via oxygen mask. Still remains encephalopathic at times. Otherwise no acute events Review of Systems Review of Systems: Unobtainable due to cognitive status Physical Exam Physical Exam: Constitutional: Ill-appearing. Mild distress. Eyes: Pupils are equal round and reactive to light. Conjunctivae are normal. Anicteric sclera. Ears nose, mouth and throat: Nasal cannula in place. No obvious deformities. Neck: Trachea is midline. Visual inspection is normal. Respiratory: Coarse breath sounds bilaterally. Mild tachypnea. Cardiovascular: Regular rate and rhythm. No murmurs. No edema. Gastrointestinal: Normal bowel sounds, soft, nontender and nondistended. No hepatosplenomegaly noted. Musculoskeletal: No cyanosis. Patient is able to move all extremities. Skin: No rashes, warm dry and intact. Neurologic: No obvious focal neurological deficits seen. Psychiatric: Appears anxious and delirious. Results & Data Results & Data ([facility]) Vital Signs (Past 12 Hours) Vital Signs Temp Pulse Pulse Resp BP Pulse Ox 05/21/21 08:00 37.3 C 105 H 35 H 94 05/21/21 07:44 37.4 C 101 H 34 H 127/89 94 05/21/21 07:00 37.5 C 93 H 34 H 94 05/21/21 06:44 37.5 C 95 H 32 H 119/80 94 05/21/21 06:30 37.5 C 99 H 33 H 95 05/21/21 06:00 37.5 C 96 05/21/21 05:44 37.6 C H 103 H 37 H 126/92 96 05/21/21 05:30 37.6 C H 99 H 35 H 96 05/21/21 05:00 37.7 C H 106 H 38 H 96 05/21/21 04:44 37.7 C H 111 H 41 H 140/95 97 05/21/21 04:30 37.8 C H 107 H 37 H 97 05/21/21 04:00 37.8 C H 108 H 38 H 122/93 96 05/21/21 03:44 37.9 C H 104 H 32 H 122/93 97 05/21/21 03:30 37.9 C H 108 H 38 H 96 05/21/21 03:00 37.9 C H 108 H 41 H 95 05/21/21 02:44 38.0 C H 109 H 43 H 145/98 H 95 05/21/21 02:30 38.0 C H 111 H 31 H 95 05/21/21 02:00 38.0 C H 110 H 42 H 95 05/21/21 01:44 38.0 C H 110 H 46 H 86 L 05/21/21 01:30 38.0 C H 106 H 30 H 138/94 94 05/21/21 01:00 38.0 C H 106 H 38 H 94 05/21/21 00:44 37.9 C H 113 H 34 H 91 05/21/21 00:30 37.9 C H 111 H 37 H 143/101 H 92 05/21/21 00:00 37.9 C H 102 H 25 H 97 05/20/21 23:44 37.6 C H 99 H 28 H 136/96 99 05/20/21 23:30 37.5 C 105 H 101 H 30 H 96 05/20/21 23:00 37.4 C 101 H 38 H 90 05/20/21 22:44 37.4 C 100 H 39 H 143/94 H 92 Vital signs, labs and imaging reviewed Coding Level of Care Code 27223 Subseq Hosp Care Lvl 2 Diagnoses Pneumonia due to 2019 novel coronavirus U07.1; J12.82 Acute respiratory failure with hypoxia J96.01 S/P CABG x 4 Z95.1 DVT prophylaxis Z29.9 Delirium R41.0
[2021-05-21] MEDS: LACTATED RINGER'S 1,000 ML IV SCH (11:30)
--- NOTE | 2021-05-21 14:55 | Hospitalist Progress Note ---
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 Unvaccinated against covid. He is being managed for the following: #. Acute respiratory failure with hypoxia #. 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 Intubated 05/12 for respiratory distress---> extubated 05/19 on high flow nasal cannula, currently on 6 L oxygen max, doing better. Plan to take out Mohr/right subclavian central line today per RN, has not moved bowel since last 10 days, speech cleared him for diet today, was not to feed earlier We will closely monitor his diet and bowel movements Patient doing better clinically. #. Acute encephalopathy Patient alert and oriented to self at bedside today, able to cooperate, was AO x3 prior to extubation per RN 05/21. Multifactorial: Recent intubation, ICU stay, hospitalization, Covid infection, respiratory failure. We will continue to monitor, continue supportive care. #. CAD s/p CABG x4 Chronic CAD, appears a stable, no chest pain, continue home meds as and when appropriate. Of note, patient purposely stopped all medications about 5 years ago. Outpatient cardiology or PCP follow-up recommended. #. DVT prophylaxis: Subcu Lovenox Full code Disposition: Downgrade to PCU telemetry. Expect discharge in next few days if he continues to improve with regard to his respiration. Admission and Anticipated Discharge Date Admission Date: May 12, 2021 Subjective Patient is being managed for acute respiratory failure secondary to Covid, extubated 05/19/2021. Patient lying in bed, on 6 L oxygen by oxygen mask, NAD, alert and oriented to self only, per RN no new acute events overnight and last bowel movement 10 days ago, speech cleared him for diet today, plan to take out his right subclavian central line and Mohr catheter today. Upon questioning, he denies any pain or discomfort or cough or headache or dizziness or chest pain or palpitation or other review of symptoms. Physical Exam Physical Exam: GENERAL: Alert and oriented x self. NAD, on 6L Oxymask. able to cooperate. HEENT: No pallor, no icterus. Pupils equal, round and reactive to light. Oral mucosa moist. NECK: No JVD, no neck masses. HEART: S1 and S2 heard. Regular rate and rhythm. No murmur, no gallop. RESPIRATORY SYSTEM: Normal AP diameter. No accessory muscle use. No wheezing, no crackles. decreased breath sounds bibasal. ABDOMEN: Soft, bowel sounds present, nontender, no distention. CENTRAL NERVOUS SYSTEM: No facial droop. Speech is clear. Obeys simple commands. Moves extremities. EXTREMITIES: No edema, no erythema seen. Results & Data Results & Data ([facility]) Vital Signs (Past 12 Hours) Vital Signs Temp Pulse Resp BP Pulse Ox 05/21/21 08:00 37.3 C 105 H 35 H 94 05/21/21 07:44 37.4 C 101 H 34 H 127/89 94 05/21/21 07:00 37.5 C 93 H 34 H 94 05/21/21 06:44 37.5 C 95 H 32 H 119/80 94 05/21/21 06:30 37.5 C 99 H 33 H 95 05/21/21 06:00 37.5 C 96 05/21/21 05:44 37.6 C H 103 H 37 H 126/92 96 05/21/21 05:30 37.6 C H 99 H 35 H 96 05/21/21 05:00 37.7 C H 106 H 38 H 96 05/21/21 04:44 37.7 C H 111 H 41 H 140/95 97 05/21/21 04:30 37.8 C H 107 H 37 H 97 05/21/21 04:00 37.8 C H 108 H 38 H 122/93 96 05/21/21 03:44 37.9 C H 104 H 32 H 122/93 97 05/21/21 03:30 37.9 C H 108 H 38 H 96 05/21/21 03:00 37.9 C H 108 H 41 H 95
[2021-05-21] MEDS: ENOXAPARIN INJ 40 MG/0.4 ML SYR SQ SCH (21:00)
[2021-05-22] MEDS: LACTATED RINGER'S 1,000 ML IV SCH ×2 (01:44→13:12)
[2021-05-22 06:01] LABS: Hematocrit (blood only) 48.9 % (42-52); Hemoglobin 16.4 g/dL (14.0-18.0); Mean Corpuscular Hemoglobin 32.3 pg (25-34); Mean Corpuscular Hgb Conc 33.5 g/dL (32-36); Mean Corpuscular Volume 96.3 fL (80-100); Mean Platelet Volume 10.5 fL (7.4-10.4); Platelet Count 395 K/uL (130-400); RDW Coefficient of Variation 13.8 % (11.5-14.5); RDW Standard Deviation 48.3 fL (36.4-46.3); Red Blood Count 5.08 M/uL (4.7-6.1); White Blood Count 17.92 K/uL (4.8-10.8)
[2021-05-22 06:21] LABS: BUN Creatinine Ratio 42.2 (10-20); Calcium 8.1 mg/dl (8.5-10.1); Creatinine Clr Calc Pharmacy 114.8 ml/min; Est GFR (African American) 109.3 ml/min; Est GFR (Non-African American) 94.3 ml/min; Potassium 3.8 mmol/L (3.5-5.1)
[2021-05-22] MEDS: ICU ELECTROLYTE REPLACEMENT PROTOCOL SCH ×2 (08:33→16:43)
[2021-05-22] MEDS: DOCUSATE SODIUM 100 MG CAP PO SCH ×2 (08:47→20:23)
[2021-05-22] MEDS: ASPIRIN 81 MG CHEW PO SCH (08:47)
[2021-05-22] MEDS: SENNA 8.6 MG TAB PO SCH (08:48)
--- NOTE | 2021-05-22 15:59 | Hospitalist Progress Note ---
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 Unvaccinated against covid. He is being managed for the following: #. Acute respiratory failure with hypoxia #. 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 Intubated 05/12 for respiratory distress---> extubated 05/19 on high flow nasal cannula, currently on 4 L oxygen max, doing better respiratory rate getting better Patient doing better clinically. Incentive spirometer, patient motivated. #. Acute encephalopathy -resolved Patient alert and oriented to self at bedside 05/21 ---> Multifactorial: Recent intubation, ICU stay, hospitalization, Covid infection, respiratory failure. We will continue to monitor, continue supportive care. #. CAD s/p CABG x4 Chronic CAD, appears a stable, no chest pain, continue home meds as and when appropriate. Of note, patient purposely stopped all medications about 5 years ago. Outpatient cardiology or PCP follow-up recommended. #. DVT prophylaxis: Subcu Lovenox Full code Disposition: Expect discharge in 1-2 d if he continues to improve with regard to his respiration. Might need 2 step test prior to discharge. PT/OT to SERA bhardwaj to assist with DC planning. Admission and Anticipated Discharge Date Admission Date: May 12, 2021 Subjective Patient is being managed for acute respiratory failure secondary to Covid, extubated 05/19/2021. Patient seen and examined at bedside. Patient lying in bed, on 4 L oxygen by oxygen mask, NAD, alert and oriented x 3, but does not remember being intubated. Per RN no new acute events overnight and had 2 bowel movements overnight, tolerating diet, patient denies any fever/chills/chest pain/palpitations belly pain/other review of symptoms. RN communicated to provide incentive spirometer to the patient, patient motivated to do the incentive spirometer if it gets him out of the hospital early. Physical Exam Physical Exam: GENERAL: AOx3, NAD, on 4 L by oxygen mask HEENT: No pallor, no icterus. Pupils equal, round and reactive to light. Oral mucosa moist. NECK: No JVD, no neck masses. HEART: S1 and S2 heard. Regular rate and rhythm. No murmur, no gallop. RESPIRATORY SYSTEM: Normal AP diameter. No accessory muscle use. No wheezing, no crackles. decreased breath sounds bibasal. ABDOMEN: Soft, bowel sounds present, nontender, no distention. CENTRAL NERVOUS SYSTEM: No facial droop. Speech is clear. Obeys simple commands. Moves extremities. EXTREMITIES: No edema, no erythema seen. Results & Data Results & Data ([facility]) Vital Signs (Past 12 Hours) Vital Signs Temp Pulse Pulse Resp BP BP BP 05/22/21 15:42 36.6 C 80 20 142/86 H 05/22/21 15:24 79 05/22/21 12:36 92 H 05/22/21 11:18 37.0 C 93 H 19 134/94 05/22/21 08:44 37.1 C 85 38 H 132/90 05/22/21 08:00 37.2 C 79 27 H 05/22/21 07:44 37.2 C 82 30 H 128/87 05/22/21 06:44 37.3 C 82 38 H 133/84 05/22/21 06:00 37.2 C 86 34 H 05/22/21 05:44 37.3 C 86 29 H 133/88 05/22/21 04:44 37.5 C 83 21 125/89 Pulse Ox 05/22/21 15:42 95 05/22/21 15:24 05/22/21 12:36 05/22/21 11:18 92 05/22/21 08:44 92 05/22/21 08:00 93 05/22/21 07:44 93 05/22/21 06:44 92 05/22/21 06:00 93 05/22/21 05:44 93 05/22/21 04:44 93
[2021-05-22] MEDS: ENOXAPARIN INJ 40 MG/0.4 ML SYR SQ SCH (20:23)
[2021-05-23] MEDS: LACTATED RINGER'S 1,000 ML IV SCH (03:06)
[2021-05-23] MEDS: ICU ELECTROLYTE REPLACEMENT PROTOCOL SCH (06:01)
[2021-05-23 08:08] LABS: Hematocrit (blood only) 46.2 % (42-52); Hemoglobin 15.1 g/dL (14.0-18.0); Mean Corpuscular Hemoglobin 31.8 pg (25-34); Mean Corpuscular Hgb Conc 32.7 g/dL (32-36); Mean Corpuscular Volume 97.3 fL (80-100); Mean Platelet Volume 10.8 fL (7.4-10.4); Platelet Count 339 K/uL (130-400); RDW Coefficient of Variation 14.1 % (11.5-14.5); RDW Standard Deviation 49.9 fL (36.4-46.3); Red Blood Count 4.75 M/uL (4.7-6.1); White Blood Count 15.59 K/uL (4.8-10.8)
[2021-05-23 08:22] LABS: BUN Creatinine Ratio 40.5 (10-20); Creatinine Clr Calc Pharmacy 116.6 ml/min; Est GFR (African American) 111.5 ml/min; Est GFR (Non-African American) 96.2 ml/min; Potassium 3.6 mmol/L (3.5-5.1)
[2021-05-23] MEDS: ASPIRIN 81 MG CHEW PO SCH (09:53)
[2021-05-23] MEDS: DOCUSATE SODIUM 100 MG CAP PO SCH ×2 (09:54→20:13)
[2021-05-23] MEDS: SENNA 8.6 MG TAB PO SCH (09:54)
[2021-05-23] MEDS ORDERED: POTASSIUM CHLORIDE CRTAB 20 MEQ TABCR PO STA (14:20)
--- NOTE | 2021-05-23 14:27 | Hospitalist Progress Note ---
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 Unvaccinated against covid. He is being managed for the following: #. Acute respiratory failure with hypoxia #. 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 Intubated 05/12 for respiratory distress---> extubated 05/19 on high flow nasal cannula, currently on 4 L oxygen max, doing better respiratory rate getting better Patient doing better clinically. Incentive spirometer, patient motivated. RN is going to provide incentive spirometer today. Patient is desaturating with minimal movement while working with physical therapy, expect to improve. #. Acute encephalopathy -resolved Patient alert and oriented to self at bedside 05/21 ---> Multifactorial: Recent intubation, ICU stay, hospitalization, Covid infection, respiratory failure. We will continue to monitor, continue supportive care. #. CAD s/p CABG x4 Chronic CAD, appears a stable, no chest pain, continue home meds as and when appropriate. Of note, patient purposely stopped all medications about 5 years ago. Outpatient cardiology or PCP follow-up recommended. #. DVT prophylaxis: Subcu Lovenox Full code Disposition: Expect discharge in next few days if he continues to improve with regard to his respiration. Might need 2 step test prior to discharge. PT/OT to SERA bhardwaj to assist with DC planning. Admission and Anticipated Discharge Date Admission Date: May 12, 2021 Subjective Patient is being managed for acute respiratory failure secondary to Covid, extubated 05/19/2021. Patient seen and examined at bedside. Pt doesn't remember being intubated. Patient lying in bed, on 6 L oxygen by oxygen mask, NAD, alert and oriented x 3. Patient reports feeling weak after working with physical therapy today. Per RN no new acute events overnight, tolerating diet, patient denies any fever/chills/chest pain/palpitations belly pain/other review of symptoms. RN communicated 05/23 to provide incentive spirometer to the patient, patient motivated to do the incentive spirometer if it gets him out of the hospital early. ---> Incentive spirometer not in the room, apparently patient did not receive it. RN providing incentive spirometer today 05/23. I believe this will help patient. Per RN, patient has been on 4 L oxygen consistently, but desaturated with minimal movement when working with physical therapy today and hence required 6 L oxygen via oxygen mask and it took some time for him to recover back. Physical Exam Physical Exam: GENERAL: AOx3, NAD, on 6 L by oxygen mask HEENT: No pallor, no icterus. Pupils equal, round and reactive to light. Oral mucosa moist. NECK: No JVD, no neck masses. HEART: S1 and S2 heard. Regular rate and rhythm. No murmur, no gallop. RESPIRATORY SYSTEM: Normal AP diameter. No accessory muscle use. No wheezing, no crackles. decreased breath sounds bibasal. ABDOMEN: Soft, bowel sounds present, nontender, no distention. CENTRAL NERVOUS SYSTEM: No facial droop. Speech is clear. Obeys simple commands. Moves extremities. EXTREMITIES: No edema, no erythema seen. Results & Data Results & Data ([facility]) Vital Signs (Past 12 Hours) Vital Signs Temp Pulse Resp BP Pulse Ox Pulse Ox Pulse Ox 05/23/21 13:21 94 94 05/23/21 13:04 36.5 C 86 24 136/92 92 05/23/21 08:30 36.8 C 80 24 124/80 92 05/23/21 02:58 36.7 C 77 24 144/96 H 92 Pulse Ox 05/23/21 13:21 91 05/23/21 13:04 05/23/21 08:30 05/23/21 02:58
[2021-05-23] MEDS: ENOXAPARIN INJ 40 MG/0.4 ML SYR SQ SCH (20:13)
[2021-05-24 06:42] LABS: Hematocrit (blood only) 44.9 % (42-52); Hemoglobin 15.2 g/dL (14.0-18.0); Mean Corpuscular Hgb Conc 33.9 g/dL (32-36); Mean Corpuscular Volume 94.5 fL (80-100); Mean Platelet Volume 10.6 fL (7.4-10.4); Platelet Count 271 K/uL (130-400); RDW Coefficient of Variation 13.6 % (11.5-14.5); RDW Standard Deviation 46.4 fL (36.4-46.3); Red Blood Count 4.75 M/uL (4.7-6.1); White Blood Count 12.82 K/uL (4.8-10.8)
[2021-05-24 07:16] LABS: BUN Creatinine Ratio 32.9 (10-20); Calcium 8.1 mg/dl (8.5-10.1); Creatinine Clr Calc Pharmacy 116.7 ml/min; Est GFR (African American) 111.5 ml/min; Est GFR (Non-African American) 96.2 ml/min; Magnesium 2.1 mg/dl (1.7-2.4); Phosphorus 3.1 mg/dl (2.5-4.9); Potassium 3.8 mmol/L (3.5-5.1)
[2021-05-24] MEDS: ASPIRIN 81 MG CHEW PO SCH (08:40)
[2021-05-24] MEDS: DOCUSATE SODIUM 100 MG CAP PO SCH ×2 (08:40→20:00)
[2021-05-24] MEDS: SENNA 8.6 MG TAB PO SCH (08:40)
--- NOTE | 2021-05-24 15:02 | Hospitalist Progress Note ---
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 Unvaccinated against covid. He is being managed for the following: #. Acute respiratory failure with hypoxia #. 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 Intubated 05/12 for respiratory distress---> extubated 05/19 on high flow nasal cannula, currently on 4 L oxygen max, doing better respiratory rate getting better Patient doing better/stable clinically. Incentive spirometer, patient motivated. #. Acute encephalopathy -resolved Patient alert and oriented to self at bedside 05/21 ---> Multifactorial: Recent intubation, ICU stay, hospitalization, Covid infection, respiratory failure. We will continue to monitor, continue supportive care. #. CAD s/p CABG x4 Chronic CAD, appears a stable, no chest pain, continue home meds as and when appropriate. Of note, patient purposely stopped all medications about 5 years ago. Outpatient cardiology or PCP follow-up recommended. #. DVT prophylaxis: Subcu Lovenox Full code Disposition: Expect discharge in next few days if he continues to improve with regard to his respiration. Might need 2 step test prior to discharge. PT/OT to SERA bhardwaj to assist with DC planning. Admission and Anticipated Discharge Date Admission Date: May 12, 2021 Subjective Patient is being managed for acute respiratory failure secondary to Covid, extubated 05/19/2021. Patient seen and examined at bedside. Pt doesn't remember being intubated. Patient sitting up in chair, on 6 L oxygen by oxygen mask, NAD, alert and oriented x 3. Patient reports being able to work more with physical therapy today. Patient reports eating well and moving bowels okay, patient denies any fever/chills/chest pain/palpitations belly pain/other review of symptoms. Patient doing incentive spirometer, poor inspiratory effort, 500 mL, patient motivated/counseled for consistency with incentive spirometer. Physical Exam Physical Exam: GENERAL: AOx3, NAD, on 6 L by NC HEENT: No pallor, no icterus. Pupils equal, round and reactive to light. Oral mucosa moist. NECK: No JVD, no neck masses. HEART: S1 and S2 heard. Regular rate and rhythm. No murmur, no gallop. RESPIRATORY SYSTEM: Normal AP diameter. No accessory muscle use. No wheezing, no crackles. decreased breath sounds. ABDOMEN: Soft, bowel sounds present, nontender, no distention. CENTRAL NERVOUS SYSTEM: No facial droop. Speech is clear. Obeys simple commands. Moves extremities. EXTREMITIES: No edema, no erythema seen. Results & Data Results & Data ([facility]) Vital Signs (Past 12 Hours) Vital Signs Temp Pulse Resp BP BP Pulse Ox 05/24/21 11:55 36.5 C 84 20 114/77 95 05/24/21 08:34 37 C 76 23 124/80 88 L
[2021-05-24] MEDS: ENOXAPARIN INJ 40 MG/0.4 ML SYR SQ SCH (19:59)
[2021-05-25] MEDS ORDERED: FUROSEMIDE INJ 20 MG/2 ML VIAL IV ONE (08:30)
[2021-05-25] MEDS: DOCUSATE SODIUM 100 MG CAP PO SCH ×2 (08:52→20:51)
[2021-05-25] MEDS: SENNA 8.6 MG TAB PO SCH (08:52)
[2021-05-25] MEDS: ASPIRIN 81 MG CHEW PO SCH (08:52)
--- NOTE | 2021-05-25 14:40 | Hospitalist Progress Note ---
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 Unvaccinated against covid. He is being managed for the following: #. Acute respiratory failure with hypoxia #. 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 Intubated 05/12 for respiratory distress---> extubated 05/19 on high flow nasal cannula, currently on 4 L oxygen max, doing better respiratory rate getting better Patient having poor incentive spirometry report, 250 mL today. Counseled about the consistency and importance of incentive spirometer again today. Incentive spirometer. Not much of improvement being seen in the last 2 days. Patient remains weak. Giving a dose of Lasix today. Continue to monitor clinically. #. Acute encephalopathy -resolved Patient alert and oriented to self at bedside 05/21 ---> Multifactorial: Recent intubation, ICU stay, hospitalization, Covid infection, respiratory failure. We will continue to monitor, continue supportive care. #. CAD s/p CABG x4 Chronic CAD, appears a stable, no chest pain, continue home meds as and when appropriate. Of note, patient purposely stopped all medications about 5 years ago. Outpatient cardiology or PCP follow-up recommended. #. DVT prophylaxis: Subcu Lovenox Full code Disposition: Expect discharge in next few days if he continues to improve with regard to his respiration. Might need 2 step test prior to discharge. PT/OT to SERA bhardwaj to assist with DC planning. Patient would likely benefit from rehab placement, discussed with the patient and patient is now open to any rehab or home health services as deemed necessary by PT/OT. Admission and Anticipated Discharge Date Admission Date: May 12, 2021 Subjective Patient is being managed for acute respiratory failure secondary to Covid, extubated 05/19/2021. Patient seen and examined at bedside. Pt doesn't remember being intubated. Patient sitting up in chair, on 5 L oxygen by oxygen mask, NAD, alert and oriented x 3. Patient reports being being tired easily when doing physical therapy. Patient reports eating well and moving bowels okay, patient denies any fever/chills/chest pain/palpitations belly pain/other review of symptoms. Patient doing incentive spirometer, poor inspiratory effort, 250 mL, patient motivated/counseled for consistency with incentive spirometer. Physical Exam Physical Exam: GENERAL: AOx3, NAD, on 5 L by NC HEENT: No pallor, no icterus. Pupils equal, round and reactive to light. Oral mucosa moist. NECK: No JVD, no neck masses. HEART: S1 and S2 heard. Regular rate and rhythm. No murmur, no gallop. RESPIRATORY SYSTEM: Normal AP diameter. No accessory muscle use. No wheezing, no crackles. decreased breath sounds. ABDOMEN: Soft, bowel sounds present, nontender, no distention. CENTRAL NERVOUS SYSTEM: No facial droop. Speech is clear. Obeys simple commands. Moves extremities. EXTREMITIES: No edema, no erythema seen. Results & Data Results & Data ([facility]) Vital Signs (Past 12 Hours) Vital Signs Temp Pulse Resp BP Pulse Ox 05/25/21 12:11 36.8 C 91 H 19 111/74 91 05/25/21 08:28 37.0 C 85 20 111/74 93 05/25/21 03:12 37.0 C 85 24 125/71 90
[2021-05-25] MEDS: ENOXAPARIN INJ 40 MG/0.4 ML SYR SQ SCH (20:52)
[2021-05-26 06:23] LABS: Hematocrit (blood only) 41.6 % (42-52); Mean Corpuscular Hgb Conc 33.7 g/dL (32-36); Mean Corpuscular Volume 95.2 fL (80-100); Mean Platelet Volume 10.7 fL (7.4-10.4); Platelet Count 235 K/uL (130-400); RDW Coefficient of Variation 13.6 % (11.5-14.5); RDW Standard Deviation 46.4 fL (36.4-46.3); Red Blood Count 4.37 M/uL (4.7-6.1); White Blood Count 11.25 K/uL (4.8-10.8)
[2021-05-26 06:49] LABS: BUN Creatinine Ratio 26.7 (10-20); Calcium 7.9 mg/dl (8.5-10.1); Creatinine Clr Calc Pharmacy 122.5 ml/min; Est GFR (African American) 113.9 ml/min; Est GFR (Non-African American) 98.3 ml/min; Magnesium 1.9 mg/dl (1.7-2.4); Potassium 3.5 mmol/L (3.5-5.1)
[2021-05-26] MEDS: DOCUSATE SODIUM 100 MG CAP PO SCH ×2 (08:50→20:10)
[2021-05-26] MEDS: ASPIRIN 81 MG CHEW PO SCH (08:50)
[2021-05-26] MEDS: SENNA 8.6 MG TAB PO SCH (08:51)
[2021-05-26] MEDS ORDERED: FUROSEMIDE INJ 20 MG/2 ML VIAL IV ONE (12:03)
--- NOTE | 2021-05-26 12:06 | Hospitalist Progress Note ---
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 Unvaccinated against covid. He is being managed for the following: #. Acute respiratory failure with hypoxia #. 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 Intubated 05/12 for respiratory distress---> extubated 05/19 on high flow nasal cannula, currently on 5 L NC Patient improving on incentive spirometer effort, today between 500 to 750ml at bedside. Counseled about the consistency and importance of incentive spirometer again today. Incentive spirometer. Not much of improvement being seen in the last 3 days with regard to O2 requirement but patient reports feeling better and is able to work with PT better. Patient remains weak. Giving a dose of Lasix again today. Continue to monitor clinically. Pt will benefit from rehab. #. Acute encephalopathy -resolved Patient alert and oriented to self at bedside 05/21 ---> Multifactorial: Recent intubation, ICU stay, hospitalization, Covid infection, respiratory failure. We will continue to monitor, continue supportive care. #. CAD s/p CABG x4 Chronic CAD, appears a stable, no chest pain, continue home meds as and when appropriate. Of note, patient purposely stopped all medications about 5 years ago. O utpatient cardiology or PCP follow-up recommended. #. DVT prophylaxis: Subcu Lovenox Full code Disposition: Expect discharge soon if he continues to improve with regard to his respiration. Might need 2 step test prior to discharge. PT/OT to SERA bhardwaj to assist with DC planning. Awaiting rehab placement. Admission and Anticipated Discharge Date Admission Date: May 12, 2021 Subjective Patient is being managed for acute respiratory failure secondary to Covid, extubated 05/19/2021. Patient seen and examined at bedside. Pt doesn't remember being intubated. Patient sitting up in chair, on 5 L oxygen by oxygen mask, NAD, alert and oriented x 3. Patient reports feeling better and being able to work with physical therapy better. Patient reports improving cough. Patient reports eating well and moving bowels okay, patient denies any fever/chills/chest pain/palpitations belly pain/other review of symptoms. Patient doing incentive spirometer, effort has improved at bedside exam between 500 to 750 mL, patient motivated/counseled for consistency with incentive spirometer. Physical Exam Physical Exam: GENERAL: AOx3, NAD, on 5 L by NC, IS effort 500 to 750 mL HEENT: No pallor, no icterus. Pupils equal, round and reactive to light. Oral mucosa moist. NECK: No JVD, no neck masses. HEART: S1 and S2 heard. Regular rate and rhythm. No murmur, no gallop. RESPIRATORY SYSTEM: Normal AP diameter. No accessory muscle use. No wheezing, no crackles. decreased breath sounds --> slightly improving ABDOMEN: Soft, bowel sounds present, nontender, no distention. CENTRAL NERVOUS SYSTEM: No facial droop. Speech is clear. Obeys simple commands. Moves extremities. EXTREMITIES: No edema, no erythema seen. Results & Data Results & Data ([facility]) Vital Signs (Past 12 Hours) Vital Signs Temp Pulse Pulse Resp BP BP Pulse Ox 05/26/21 11:05 36.6 C 92 H 18 125/75 95 05/26/21 09:00 75 05/26/21 07:27 37.0 C 80 19 103/67 92 05/26/21 03:44 37.1 C 87 18 119/81 90 05/26/21 00:00 87
[2021-05-26] MEDS: ENOXAPARIN INJ 40 MG/0.4 ML SYR SQ SCH (20:10)
[2021-05-27] MEDS: ACETAMINOPHEN 325 MG TAB PO PRN ×2 (09:13→17:23)
[2021-05-27] MEDS: ASPIRIN 81 MG CHEW PO SCH (09:14)
[2021-05-27] MEDS: DOCUSATE SODIUM 100 MG CAP PO SCH ×2 (09:14→20:39)
[2021-05-27] MEDS: SENNA 8.6 MG TAB PO SCH (09:14)
[2021-05-27 10:24] LABS: BUN Creatinine Ratio 21.9 (10-20); Calcium 7.8 mg/dl (8.5-10.1); Creatinine Clr Calc Pharmacy 127.2 ml/min; Est GFR (African American) 115.2 ml/min; Est GFR (Non-African American) 99.4 ml/min; Potassium 3.5 mmol/L (3.5-5.1)
--- NOTE | 2021-05-27 12:43 | Hospitalist Progress Note ---
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 Unvaccinated against covid. He is being managed for the following: #. Acute respiratory failure with hypoxia #. 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 Intubated 05/12 for respiratory distress---> extubated 05/19 on high flow nasal cannula, currently on 5 L NC Patient improving on incentive spirometer effort, today between 750 to 1000ml at bedside. Incentive spirometer q1hwa Not much of improvement being seen in the last 4 days with regard to O2 r equirement but patient reports feeling better and is able to work with PT better. Patient remains weak. Continue to monitor clinically. Pt will benefit from rehab. #. Acute encephalopathy -resolved Patient alert and oriented to self at bedside 05/21 ---> Multifactorial: Recent intubation, ICU stay, hospitalization, Covid infection, respiratory failure. We will continue to monitor, continue supportive care. #. CAD s/p CABG x4 Chronic CAD, appears a stable, no chest pain, continue home meds as and when appropriate. Of note, patient purposely stopped all medications about 5 years ago. Outpatient cardiology or PCP follow-up recommended. #. DVT prophylaxis: Subcu Lovenox Full code Disposition: Expect discharge soon if he continues to improve with regard to his respiration. Might need 2 step test prior to discharge. PT/OT to [facility] to assist with DC planning. Awaiting rehab placement. d/w CM today. Admission and Anticipated Discharge Date Admission Date: May 12, 2021 Subjective Patient is being managed for acute respiratory failure secondary to Covid, extubated 05/19/2021. Patient seen and examined at bedside. Pt doesn't remember being intubated. Patient sitting up in bed, on 4 L oxygen by NC, NAD, alert and oriented x 3. Patient reports feeling better and being able to work with physical therapy better. Patient reports improving cough. Complains of rt knee pain, doesn't remember hitting, no bruise noted, will give voltaren gel and get an XR knee. Patient reports eating well and moving bowels okay, patient denies any fever/chills/chest pain/palpitations belly pain/other review of symptoms. Patient doing incentive spirometer, effort has improved at bedside exam between 750 to 1000 mL, patient motivated/counseled for consistency (every hour while awake) with incentive spirometer. Physical Exam Physical Exam: GENERAL: AOx3, NAD, on 4 L by NC, IS effort 750 to 1000 mL HEENT: No pallor, no icterus. Pupils equal, round and reactive to light. Oral mucosa moist. NECK: No JVD, no neck masses. HEART: S1 and S2 heard. Regular rate and rhythm. No murmur, no gallop. RESPIRATORY SYSTEM: Normal AP diameter. No accessory muscle use. No wheezing, no crackles. decreased breath sounds b/l ABDOMEN: Soft, bowel sounds present, nontender, no distention. CENTRAL NERVOUS SYSTEM: No facial droop. Speech is clear. Obeys simple commands. Moves extremities. EXTREMITIES: No edema, no erythema seen. Results & Data Results & Data ([facility]) Vital Signs (Past 12 Hours) Vital Signs Temp Pulse Pulse Resp BP Pulse Ox 05/27/21 11:33 36.6 C 61 18 97/59 L 96 05/27/21 10:10 86 05/27/21 07:21 36.9 C 79 18 116/70 91 05/27/21 06:24 36.9 C 85 20 108/65 91
[2021-05-27] MEDS: DICLOFENAC SOD 1% GEL 100 GM TUBE EXT SCH ×2 (14:46→17:24)
--- NOTE | 2021-05-27 15:47 | XRay Report ---
XR knee RT 1 or 2V routine CLINICAL HISTORY: Rt anterior knee pain/tenderness. No history of injury COMPARISON STUDY: No previous studies for comparison. TECHNIQUE: AP and lateral right knee views FINDINGS: Bones: There is no evidence for an acute fracture or dislocation. There is no lytic or blastic lesion . Joints: The joint spaces are maintained. There is no evidence for an intra-articular effusion. The alisha major are in anatomic alignment. Soft tissues: There is no focal soft tissue abnormality. Vascular clips are seen along the medial asp ect of the knee. There is no radiopaque foreign body. IMPRESSION: No acute osseous pathology. ACT 112: Negative or not required by law. Electronically signed by: Shamar Awan M.D. 05/27/2021 3:46 PM
[2021-05-27] MEDS: ENOXAPARIN INJ 40 MG/0.4 ML SYR SQ SCH (20:36)
[2021-05-28] MEDS: DICLOFENAC SOD 1% GEL 100 GM TUBE EXT SCH ×5 (01:24→23:56)
[2021-05-28 07:27] LABS: BUN Creatinine Ratio 18.6 (10-20); Calcium 8.2 mg/dl (8.5-10.1); Creatinine Clr Calc Pharmacy 107.8 ml/min; Est GFR (African American) 107.7 ml/min; Est GFR (Non-African American) 92.9 ml/min; Potassium 3.7 mmol/L (3.5-5.1)
[2021-05-28] MEDS: SENNA 8.6 MG TAB PO SCH (08:10)
[2021-05-28] MEDS: DOCUSATE SODIUM 100 MG CAP PO SCH ×2 (08:10→20:14)
[2021-05-28] MEDS: ASPIRIN 81 MG CHEW PO SCH (08:15)
--- NOTE | 2021-05-28 13:43 | Hospitalist Progress Note ---
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 Unvaccinated against covid. He is being managed for the following: #. Acute respiratory failure with hypoxia #. 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 Intubated 05/12 for respiratory distress---> extubated 05/19 on high flow nasal cannula Oxygen down to 3l/min Continue to wean as tolerated #. Acute encephalopathy -resolved Patient alert and oriented to self at bedside 05/21 ---> Multifactorial: Recent intubation, ICU stay, hospitalization, Covid infection, respiratory failure. We will continue to monitor, continue supportive care. #. CAD s/p CABG x4 Chronic CAD, appears a stable, no chest pain, continue home meds as and when appropriate. Of note, patient purposely stopped all medications about 5 years ago. Outpatient cardiology or PCP follow-up recommended. #. DVT prophylaxis: Subcu Lovenox Right knee pain XR negative for acute osseous pathology Tylenol prn Continue PT/OT Full code Disposition: Awaiting rehab placement Admission and Anticipated Discharge Date Admission Date: May 12, 2021 Subjective Patient seen and examined. Patient reports occasional cough but much improved. Reports some shortness of breath with moderate exertion. Denies any chest pain, nausea, vomiting, abdominal pain diarrhea constipation Reports appetite is good. Denies any fevers, chills Denies dysuria, frequency or urgency Reports right knee pain Physical Exam Constitutional: + well hydrated; no acute distress Eyes: PERRL, conjunctivae normal, anicteric sclerae ENMT: external ear and nose normal, oropharynx normal Respiratory: normal respiratory effort; no respiratory distress Decreased breaths sounds at bases. No crackles Cardiovascular: Rate/Rhythm: regular rate and regular rhythm S1 S2 Gastrointestinal (Abdomen): normal bowel sounds, soft, nontender, no hepatosplenomegaly Musculoskeletal: no cyanosis or clubbing, extremities motor strength 5/5 Neurologic: PERRL, EOMI, accommodation nl, no face palsy, no dysarthria Psychiatric: A+Ox3, euthymic affect Results & Data Results & Data ([facility]) Vital Signs (Past 12 Hours) Vital Signs Temp Pulse Pulse Resp BP Pulse Ox 05/28/21 11:14 36.6 C 88 18 94/70 L 96 05/28/21 08:05 36.7 C 88 20 106/71 94 05/28/21 08:00 82 05/28/21 03:35 36.6 C 90 18 107/63 91 Laboratory Results Abnormal lab results 05/28/21 Range/Units 06:10 Glucose 102 H (70-99(Fasting)) mg/dl Calcium 8.2 L (8.5-10.1) mg/dl
[2021-05-28] MEDS ORDERED: LIDOCAINE 5% 1 PATCH TD ONE (14:00)
[2021-05-28] MEDS: ENOXAPARIN INJ 40 MG/0.4 ML SYR SQ SCH (20:12)
[2021-05-29] MEDS ORDERED: KETOROLAC TROMETHAMINE 15 MG/ML VIAL IV ONE (01:52)
[2021-05-29] MEDS: DICLOFENAC SOD 1% GEL 100 GM TUBE EXT SCH ×4 (06:21→23:57)
[2021-05-29] MEDS: DOCUSATE SODIUM 100 MG CAP PO SCH ×2 (08:52→21:59)
[2021-05-29] MEDS: SENNA 8.6 MG TAB PO SCH (08:53)
[2021-05-29] MEDS: LIDOCAINE 5% 1 PATCH TD SCH (08:53)
[2021-05-29] MEDS: ASPIRIN 81 MG CHEW PO SCH (09:07)
[2021-05-29] MEDS: ACETAMINOPHEN 325 MG TAB PO PRN (11:33)
--- NOTE | 2021-05-29 13:30 | Hospitalist Progress Note ---
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 Unvaccinated against covid. He is being managed for the following: #. Acute respiratory failure with hypoxia #. 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 Intubated 05/12 for respiratory distress---> extubated 05/19 on high flow nasal cannula Oxygen down to 3l/min Continue to wean as tolerated #. Acute encephalopathy -resolved Patient alert and oriented to self at bedside 05/21 ---> Multifactorial: Recent intubation, ICU stay, hospitalization, Covid infection, respiratory failure. We will continue to monitor, continue supportive care. #. CAD s/p CABG x4 Chronic CAD, appears a stable, no chest pain, continue home meds as and when appropriate. Of note, patient purposely stopped all medications about 5 years ago. Outpatient cardiology or PCP follow-up recommended. #. DVT prophylaxis: Subcu Lovenox Right knee pain XR negative for acute osseous pathology Possible patellar tendinitis Tylenol scheduled. Toradol prn Full code Disposition: Awaiting rehab placement Admission and Anticipated Discharge Date Admission Date: May 12, 2021 Subjective Patient seen and examined. Patient reports occasional cough. Reports some shortness of breath with moderate exertion. Denies any chest pain, nausea, vomiting, anorexia, abdominal pain,diarrhea, constipation. Denies any fevers, chills Denies dysuria, frequency or urgency Reports right knee pain Physical Exam Constitutional: + well hydrated; no acute distress Eyes: PERRL, conjunctivae normal, anicteric sclerae ENMT: external ear and nose normal, oropharynx normal Respiratory: normal respiratory effort; no respiratory distress Cardiovascular: Rate/Rhythm: regular rate and regular rhythm Gastrointestinal (Abdomen): normal bowel sounds, soft, nontender, no hepatosplenomegaly Musculoskeletal: no cyanosis or clubbing, extremities motor strength 5/5 Tenderness over right patellar tendon No tenderness over right knee joint on the sides or posteriorly Neurologic: PERRL, EOMI, accommodation nl, no face palsy, no dysarthria Psychiatric: A+Ox3, euthymic affect Results & Data Results & Data ([facility]) Vital Signs (Past 12 Hours) Vital Signs Temp Pulse Resp BP Pulse Ox 05/29/21 11:30 36.6 C 87 20 95/66 L 95 05/29/21 07:21 36.7 C 89 18 95/66 L 89 L 05/29/21 04:41 36.4 C L 80 16 102/68 94
[2021-05-29] MEDS: ACETAMINOPHEN 325 MG TAB PO SCH ×2 (13:55→22:00)
[2021-05-29] MEDS: KETOROLAC TROMETHAMINE 15 MG/ML VIAL IV PRN ×2 (13:58→23:52)
[2021-05-29] MEDS: ENOXAPARIN INJ 40 MG/0.4 ML SYR SQ SCH (21:59)
[2021-05-30] MEDS: ACETAMINOPHEN 325 MG TAB PO SCH ×4 (02:00→20:49)
[2021-05-30] MEDS: DICLOFENAC SOD 1% GEL 100 GM TUBE EXT SCH ×3 (05:26→18:02)
[2021-05-30 07:31] LABS: BUN Creatinine Ratio 24.7 (10-20); Calcium 8.3 mg/dl (8.5-10.1); Est GFR (African American) 110.4 ml/min; Est GFR (Non-African American) 95.3 ml/min; Potassium 3.6 mmol/L (3.5-5.1)
[2021-05-30] MEDS: DOCUSATE SODIUM 100 MG CAP PO SCH ×2 (09:43→22:26)
[2021-05-30] MEDS: LIDOCAINE 5% 1 PATCH TD SCH (09:43)
[2021-05-30] MEDS: SENNA 8.6 MG TAB PO SCH (09:43)
[2021-05-30] MEDS: ASPIRIN 81 MG CHEW PO SCH (09:43)
--- NOTE | 2021-05-30 11:15 | Hospitalist Progress Note ---
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 Unvaccinated against covid. He is being managed for the following: #. Acute respiratory failure with hypoxia #. 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 Intubated 05/12 for respiratory distress---> extubated 05/19 on high flow nasal cannula Oxygen down to 3l/min Continue to wean as tolerated #. Acute encephalopathy -resolved Patient alert and oriented to self at bedside 05/21 ---> Multifactorial: Recent intubation, ICU stay, hospitalization, Covid infection, respiratory failure. We will continue to monitor, continue supportive care. #. CAD s/p CABG x4 Chronic CAD, appears a stable, no chest pain, continue home meds as and when appropriate. Of note, patient purposely stopped all medications about 5 years ago. Outpatient cardiology or PCP follow-up recommended. #. DVT prophylaxis: Subcu Lovenox Right knee pain XR negative for acute osseous pathology Possible patellar tendinitis Continue Tylenol scheduled and Toradol prn Full code Disposition: Awaiting placement. Seems [facility] was cost prohibitive. CM working with patient/family on SNF placement Admission and Anticipated Discharge Date Admission Date: May 12, 2021 Subjective Patient seen and examined. Patient reports occasional cough and some shortness of breath with moderate exertion. Denies any chest pain, nausea, vomiting, anorexia, abdominal pain,diarrhea, constipation. Denies any fevers, chills Denies dysuria, frequency or urgency Reports right knee pain, mildly improved with toradol Physical Exam Constitutional: + well hydrated; no acute distress Eyes: PERRL, conjunctivae normal, anicteric sclerae ENMT: external ear and nose normal, oropharynx normal Respiratory: normal respiratory effort; no respiratory distress CTA b/l No crackles Cardiovascular: Rate/Rhythm: regular rate and regular rhythm S1 S2 Gastrointestinal (Abdomen): normal bowel sounds, soft, nontender, no hepatosplenomegaly Musculoskeletal: no cyanosis or clubbing, extremities motor strength 5/5 Mild tenderness over lower part of anterior knee Neurologic: PERRL, EOMI, accommodation nl, no face palsy, no dysarthria Psychiatric: A+Ox3, euthymic affect Results & Data Results & Data ([facility]) Vital Signs (Past 12 Hours) Vital Signs Temp Pulse Resp BP BP Pulse Ox 05/30/21 11:01 36.9 C 94 H 18 99/66 L 98 05/30/21 07:32 36.9 C 88 20 101/66 96 05/30/21 04:12 36.9 C 94 H 16 117/58 L 95 Laboratory Results Abnormal lab results 05/30/21 Range/Units 06:23 BUN/Creatinine Ratio 24.7 H (10-20) Glucose 101 H (70-99(Fasting)) mg/dl Calcium 8.3 L (8.5-10.1) mg/dl
[2021-05-30] MEDS: KETOROLAC TROMETHAMINE 15 MG/ML VIAL IV PRN (11:53)
[2021-05-30] MEDS: ENOXAPARIN INJ 40 MG/0.4 ML SYR SQ SCH (20:51)
[2021-05-31] MEDS: DICLOFENAC SOD 1% GEL 100 GM TUBE EXT SCH ×5 (00:08→23:20)
[2021-05-31] MEDS: ACETAMINOPHEN 325 MG TAB PO SCH ×4 (01:06→19:45)
[2021-05-31] MEDS: SENNA 8.6 MG TAB PO SCH (08:25)
[2021-05-31] MEDS: LIDOCAINE 5% 1 PATCH TD SCH (08:26)
[2021-05-31] MEDS: DOCUSATE SODIUM 100 MG CAP PO SCH ×2 (08:27→20:15)
[2021-05-31] MEDS: ASPIRIN 81 MG CHEW PO SCH (08:31)
--- NOTE | 2021-05-31 10:13 | Hospitalist Progress Note ---
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 Unvaccinated against covid. He is being managed for the following: #. Acute respiratory failure with hypoxia #. 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 Intubated 05/12 for respiratory distress---> extubated 05/19 on high flow nasal cannula Oxygen has been weaned down to 3l/min with periods of tolerating room air at rest Continue to wean as tolerated #. Acute encephalopathy -resolved Multifactorial: Recent intubation, ICU stay, hospitalization, Covid infection, respiratory failure. Currently resolved #. CAD s/p CABG x4 Chronic CAD, appears a stable, no chest pain, continue home meds as and when appropriate. Of note, patient purposely stopped all medications about 5 years ago. Outpatient cardiology or PCP follow-up recommended. #. DVT prophylaxis: Subcu Lovenox Right knee pain XR negative for acute osseous pathology Possible patellar tendinitis Continue Tylenol scheduled and Toradol prn Full code Disposition: Awaiting placement. Seems [facility] was cost prohibitive. CM working with patient/family on SNF placement Admission and Anticipated Discharge Date Admission Date: May 12, 2021 Subjective Patient seen and examined. Patient reports occasional cough and exertional dyspnea improving Denies any chest pain, nausea, vomiting, anorexia, abdominal pain,diarrhea, constipation. Denies any fevers, chills Denies dysuria, frequency or urgency Reports right knee pain is improving Physical Exam Constitutional: + well hydrated; no acute distress Eyes: PERRL, conjunctivae normal, anicteric sclerae ENMT: external ear and nose normal, oropharynx normal Respiratory: normal respiratory effort, lungs clear to auscultation Cardiovascular: Rate/Rhythm: regular rate and regular rhythm S1 S2 Gastrointestinal (Abdomen): normal bowel sounds, soft, nontender, no hepatosplenomegaly Musculoskeletal: no cyanosis or clubbing, extremities motor strength 5/5 Neurologic: PERRL, EOMI, accommodation nl, no face palsy, no dysarthria Psychiatric: A+Ox3, euthymic affect Results & Data Results & Data ([facility]) Vital Signs (Past 12 Hours) Vital Signs Temp Pulse Pulse Resp BP Pulse Ox 05/31/21 07:38 37.0 C 86 19 118/75 92 05/31/21 04:31 86 05/31/21 03:53 36.6 C 74 18 99/70 L 98 05/30/21 23:00 86 05/30/21 22:46 36.5 C 87 18 108/73 96
[2021-05-31] MEDS: ENOXAPARIN INJ 40 MG/0.4 ML SYR SQ SCH (20:14)
[2021-06-01] MEDS: ACETAMINOPHEN 325 MG TAB PO SCH ×4 (02:44→21:18)
[2021-06-01] MEDS: DICLOFENAC SOD 1% GEL 100 GM TUBE EXT SCH ×3 (05:03→17:16)
[2021-06-01] MEDS: ASPIRIN 81 MG CHEW PO SCH (08:10)
[2021-06-01] MEDS: LIDOCAINE 5% 1 PATCH TD SCH (08:11)
[2021-06-01] MEDS: SENNA 8.6 MG TAB PO SCH (08:11)
[2021-06-01] MEDS: DOCUSATE SODIUM 100 MG CAP PO SCH ×2 (08:11→21:18)
--- NOTE | 2021-06-01 10:04 | Hospitalist Progress Note ---
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 Unvaccinated against covid. He is being managed for the following: #. Acute respiratory failure with hypoxia #. 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 Intubated 05/12 for respiratory distress---> extubated 05/19 on high flow nasal cannula Oxygen has been weaned down to 3l/min with periods of tolerating room air at rest Continue to wean as tolerated #. Acute encephalopathy -resolved Multifactorial: Recent intubation, ICU stay, hospitalization, Covid infection, respiratory failure. Currently resolved #. CAD s/p CABG x4 Chronic CAD, appears a stable, no chest pain, continue home meds as and when appropriate. Of note, patient purposely stopped all medications about 5 years ago. Outpatient cardiology or PCP follow-up recommended. #. DVT prophylaxis: Subcu Lovenox Right knee pain XR negative for acute osseous pathology Possible patellar tendinitis Continue Tylenol scheduled and Toradol prn Full code Disposition: Awaiting placement. Seems [facility] was cost prohibitive. CM working with patient/family on SNF placement Admission and Anticipated Discharge Date Admission Date: May 12, 2021 Subjective Patient seen and examined. Patient reports occasional cough and exertional dyspnea continue to improve Denies any chest pain, nausea, vomiting, anorexia, abdominal pain,diarrhea, constipation. Denies any fevers, chills Denies dysuria, frequency or urgency Reports right knee pain is significantly improved Physical Exam Constitutional: + well hydrated; no acute distress Eyes: PERRL, conjunctivae normal, anicteric sclerae ENMT: external ear and nose normal, oropharynx normal Respiratory: normal respiratory effort, lungs clear to auscultation Cardiovascular: Rate/Rhythm: regular rate and regular rhythm S1 S2 Gastrointestinal (Abdomen): normal bowel sounds, soft, nontender, no hepatosplenomegaly Musculoskeletal: no cyanosis or clubbing, extremities motor strength 5/5 Neurologic: PERRL, EOMI, accommodation nl, no face palsy, no dysarthria Psychiatric: A+Ox3, euthymic affect Results & Data Results & Data ([facility]) Vital Signs (Past 12 Hours) Vital Signs Temp Pulse Pulse Resp BP Pulse Ox 06/01/21 07:45 36.5 C 89 19 102/66 95 06/01/21 02:45 36.5 C 80 14 116/63 94 05/31/21 23:27 37.1 C 96 H 18 112/74 94 05/31/21 23:21 82
[2021-06-01] MEDS: ENOXAPARIN INJ 40 MG/0.4 ML SYR SQ SCH (21:20)
[2021-06-02] MEDS: DICLOFENAC SOD 1% GEL 100 GM TUBE EXT SCH ×5 (00:05→23:08)
[2021-06-02] MEDS: ACETAMINOPHEN 325 MG TAB PO SCH ×4 (02:17→19:49)
[2021-06-02] MEDS: LIDOCAINE 5% 1 PATCH TD SCH (08:32)
[2021-06-02] MEDS: DOCUSATE SODIUM 100 MG CAP PO SCH ×2 (08:33→19:52)
[2021-06-02] MEDS: SENNA 8.6 MG TAB PO SCH (08:33)
[2021-06-02] MEDS: ASPIRIN 81 MG CHEW PO SCH (10:41)
--- NOTE | 2021-06-02 11:32 | Hospitalist Progress Note ---
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 Unvaccinated against covid. He is being managed for the following: #. Acute respiratory failure with hypoxia #. 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 Intubated 05/12 for respiratory distress---> extubated 05/19 on high flow nasal cannula Oxygen has been weaned down to 3l/min with periods of tolerating room air at rest Continue to wean as tolerated #. Acute encephalopathy -resolved Multifactorial: Recent intubation, ICU stay, hospitalization, Covid infection, respiratory failure. Currently resolved #. CAD s/p CABG x4 Chronic CAD, appears a stable, no chest pain, continue home meds as and when appropriate. Of note, patient purposely stopped all medications about 5 years ago. Outpatient cardiology or PCP follow-up recommended. #. DVT prophylaxis: Subcu Lovenox Right knee pain XR negative for acute osseous pathology Possible patellar tendinitis Continue Tylenol Full code Disposition: Awaiting placement. Seems [facility] was cost prohibitive. CM working on SNF placement Patient wants to go to SNF but if no availability, he will want to go home with home PT Got [employer] COVID vaccine today Will follow up with CM tomorrow. If no progress, will get 2 step and plan for home per patient's wishes Airborne precautions discontinued Admission and Anticipated Discharge Date Admission Date: May 12, 2021 Subjective Patient seen and examined. Patient reports occasional cough and exertional dyspnea continue to improve Denies any chest pain, nausea, vomiting, anorexia, abdominal pain,diarrhea, constipation. Denies any fevers, chills Denies dysuria, frequency or urgency Reports right knee pain continue to improve Physical Exam Constitutional: + well hydrated; no acute distress Eyes: PERRL, conjunctivae normal, anicteric sclerae ENMT: external ear and nose normal, oropharynx normal Respiratory: normal respiratory effort, lungs clear to auscultation Cardiovascular: Rate/Rhythm: regular rate and regular rhythm S1 S2 Gastrointestinal (Abdomen): normal bowel sounds, soft, nontender, no hepatosplenomegaly Musculoskeletal: no cyanosis or clubbing, extremities motor strength 5/5 Neurologic: PERRL, EOMI, accommodation nl, no face palsy, no dysarthria Psychiatric: A+Ox3, euthymic affect Results & Data Results & Data ([facility]) Vital Signs (Past 12 Hours) Vital Signs Temp Pulse Pulse Resp BP Pulse Ox 06/02/21 11:06 36.5 C 92 H 18 101/69 95 06/02/21 07:28 36.5 C 88 18 118/85 98 06/02/21 02:57 36.6 C 86 18 143/94 H 94 06/02/21 02:02 91 H
[2021-06-02] MEDS: COVID-19 VAC,AD26(JANSSEN)/PF 0.5 ML SYR IM ONE ×2 (14:59→15:38)
[2021-06-02] MEDS: ENOXAPARIN INJ 40 MG/0.4 ML SYR SQ SCH (19:48)
[2021-06-03] MEDS: ACETAMINOPHEN 325 MG TAB PO SCH ×3 (03:25→14:34)
[2021-06-03] MEDS: DICLOFENAC SOD 1% GEL 100 GM TUBE EXT SCH ×2 (05:12→13:21)
[2021-06-03 06:45] LABS: BUN Creatinine Ratio 22.9 (10-20); Calcium 8.4 mg/dl (8.5-10.1); Creatinine Clr Calc Pharmacy 131.9 ml/min; Est GFR (African American) 117.2 ml/min; Est GFR (Non-African American) 101.1 ml/min; Potassium 3.8 mmol/L (3.5-5.1)
[2021-06-03] MEDS: SENNA 8.6 MG TAB PO SCH (10:00)
[2021-06-03] MEDS: LIDOCAINE 5% 1 PATCH TD SCH (10:02)
[2021-06-03] MEDS: DOCUSATE SODIUM 100 MG CAP PO SCH (10:04)
[2021-06-03] MEDS: ASPIRIN 81 MG CHEW PO SCH (10:07)
--- NOTE | 2021-06-03 17:36 | Discharge Summary ---
Date of Service June 03, 2021 Admission HPI Per Admitting Provider 60-year-old male with PMH CABG x4 in 2011 (patient denies additional past medical history and has not seen a doctor in at least 5 years, outside records unavailable) who presents to the ED for evaluation of cough and shortness of breath. Patient reports he has been feeling sick for the past 2 weeks. He reports progressive worsening cough and shortness of breath. Cough has been nonproductive. Patient feels as though he has been running a fever and has been having episodes of diaphoresis however did not check his temperature. He has had nausea and poor appetite however denies abdominal pain, vomiting, diarrhea. No chest pain or palpitations. Denies lightheadedness, dizziness, diaphoresis, syncopal events. Denies urinary symptoms. In the ED, patient was hypoxic on room air to 88%, currently requiring 2 L of oxygen via nasal cannula. Patient has has a positive for COVID-19. He is unvaccinated. CTA chest negative for pulmonary embolism however shows extensive bilateral groundglass opacities cons istent with COVID-19 pneumonia. Patient was given IVF and IV dexamethasone. Admission Exam Per Admitting Provider Constitutional: WD/WN, vitals as above + ill appearing; no acute distress Eyes: PERRL, conjunctivae normal, anicteric sclerae ENMT: external ear and nose normal, oropharynx normal Respiratory: normal respiratory effort; no respiratory distress Auscultation: + crackles (Bibasilar) Cardiovascular: Rate/Rhythm: regular rate and regular rhythm Vessels: normal peripheral pulses Extremities: no edema Gastrointestinal (Abdomen): normal bowel sounds, soft, nontender, no hepatosplenomegaly Musculoskeletal: no cyanosis or clubbing, extremities motor strength 5/5 Skin: no rashes, warm and dry Neurologic: PERRL, EOMI, accommodation nl, no face palsy, no dysarthria Psychiatric: A+Ox3, euthymic affect Principal Diagnosis Acute respiratory failure with hypoxia COVID 19 pneumonia Discharge Exam Constitutional + well hydrated; no acute distress Eyes PERRL, conjunctivae normal, anicteric sclerae ENMT external ear and nose normal, oropharynx normal Respiratory normal respiratory effort, lungs clear to auscultation Cardiovascular Rate/Rhythm: regular rate and regular rhythm S1 S2 Gastrointestinal (Abdomen) normal bowel sounds, soft, nontender, no hepatosplenomegaly Musculoskeletal no cyanosis or clubbing, extremities motor strength 5/5 Neurologic PERRL, EOMI, accommodation nl, no face palsy, no dysarthria Psychiatric A+Ox3, euthymic affect Discharge Data Allergies Allergy/AdvReac Type Severity Reaction Status Date / Time No Known Allergies Allergy Unverified 05/12/21 10:29 Consultations 05/12/21 12:21 ED Decision to Admit Stat 05/14/21 11:28 Consult Pulmonology Routine 05/16/21 14:22 Consult Chemical Maker Stat Ordered Studies 05/12/21 10:59 CT angio chest PE protocol Stat Vasculature: There is homogeneous perfusion of the pulmonary vasculature bilaterally. No intraluminal filling defects or evidence for pulmonary embolus is seen. Airway: The airway is clear. No endobronchial lesion is identified. Lungs: Extensive groundglass opacities are present throughout both lungs characteristic of a viral type pneumonitis and Covid 19 pneumonia. The lungs are otherwise clear of confluent alveolar opacities, air bronchograms or pulmonary nodules. There is no evidence for pulmonary edema as suspected radiographically. Pleura: There is no evidence for pleural effusion. There is no evidence for pneumothorax. Mediastinum: There is no evidence for pathologic adenopathy. The patient is status post previous cardiothoracic surgery. The heart size is within normal limits. Coronary artery calcification is present. The thoracic aorta is within normal limits. There is no evidence for pericardial effusion. Upper abdomen:The adrenal glands are normal bilaterally. There is evidence for cholelithiasis Osseous structures: There is no acute osseous pathology. Impression: 1. No CTA evidence for pulmonary embolus. 2. . Extensive groundglass opacities are present throughout both lungs characteristic of a viral type pneumonitis and early Covid 19 pneumonia. 3. This accounts for the density seen on the standard radiographs with no evidence for pulmonary edema. 4. Cholelithiasis. 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 Unvaccinated against covid. He is being managed for the following: #. Acute respiratory failure with hypoxia #. Pneumonia due to COVID-19 novel coronavirus Patient had 2 weeks of signs and symptoms prior to presentation Was saturating at 88% on room air at presentation to ED He was intubated 05/12/21 for respiratory distress and managed in ICU Was extubated 05/19/21 on high flow nasal cannula He was treated with dexamethasone He did not receive remdesivir as he was outside the window for that and did not meet criteria for baricitinib Patient's oxygen was weaned down Discharged on oxygen at 2l/min at rest and 3l/min with activity Received J&J COVID 19 vaccine on 06/02/21 #. Acute encephalopathy -resolved Multifactorial: Recent intubation, ICU stay, hospitalization, Covid infection, respiratory failure. Currently resolved #. CAD s/p CABG x4 Chronic CAD, appears a stable, no chest pain, continue home meds as and when appropriate. Of note, patient purposely stopped all medications about 5 years ago. Outpatient cardiology follow-up recommended. Patient reported he does not have a PCP. New PCP appointment set up Right knee pain XR negative for acute osseous pathology Possible patellar tendinitis Almost completely resolved Patient reports he has tylenol to use prn at home PT/OT evaluated and rehab recommended Rehab was cost prohibitive for patient Patient had been waiting on SNF placement for days but no availability He has been doing good with PT/OT inpatient He insists on going home today. I believe based on clinical improvement, he will do well with home health/PT and close PCP follow up CM arranged home health and walker Total Time Total Time Spent Total Time Spent (In Minutes): 50 Total Time Includes: Examination of the Patient, Discharge Planning and Medication Reconciliation Discharge Plan Discharge Items Patient Disposition: Home - Home Health Services Reason For Visit: COVID PNEUMONIA Discharge Diagnosis: Acute respiratory failure with hypoxia COVID 19 pneumonia Activity: As commented below Activity Comment: Per PT recommendations Non-emergency contact: Primary Care Provider Call non-emergency contact if: you have any medication questions and your symptoms worsen Follow-up/Referrals: Jamey Winkler MD [Outside Practitioners] - (Date & Time 06/11/2021 11:00 AM Provider Jamey Winkler MD [facility] ) Diet: Regular Addtl Attending Provider Instructions: Mr Paredes You came tot [facility] complaining of cough and shortness of breath. You were found to COVID 19 pneumonia. You required mechanical ventilation (breathing machine) for some days. You were treated in ICU and improved. Breathing machine was removed and you continue to improve. You are being discharged on oxygen at 2l/min at rest and 3l/min with activity. You also received the J&J COVID vaccine on 06/02/21. Please ensure follow up with your Primary Doctor. Home health services were arranged. It was a pleasure taking care of you Pending Studies at Discharge: No Stand-Alone Forms: My [facility], Smoking Cessation Medications and DC Order Prescriptions: Continued Aspir-81 81 mg PO QAM RF: 0 Discharge Orders: Discharge Order (Routine); Ordered 06/03/21 Ordered By: Crista Oneill Admission Data Admit Date/Time: 05/12/21 13:00 Attending Provider: Crista Oneill I. Admit Provider: Mago Parada Primary Care Provider: PCP,NO Other Providers: Mago Parada ; Duarte Fu ; Christiano Smith ; [facility] ; Demian Aguirre ; [place] Other Interventions: Discharge Summary Assessment (RN) Last Done: 06/03/21 14:24
== END 2021-06-03 15:09 | disposition home health service (06) | DRG 207 ==
LOC: ED 09:55 → SUATTDRO 13:00 → EDINP 13:00 → 2W 18:06 → 2S 05-13 18:25 → 1E 05-16 15:33 → 2E 05-22 10:36